=== PATIENT | female | born 1950 | race Caucasian/White ===

== ENCOUNTER 2023-01-23 18:04 | Inpatient (IN) | payer MEDICARE, SELFPAY ==
--- NOTE | ~2023-01-23 | XR_ITS ---
EXAMINATION: XR CHEST CLINICAL INFORMATION: Confusion COMPARISON: None available. TECHNIQUE: Frontal view of the chest was obtained. FINDINGS: The cardiac silhouette is upper normal in size. Hilar and mediastinal contours are unremarkable. The lungs are clear. No pleural effusion or pneumothorax. Slight elevation of the right hemidiaphragm. Degenerative changes of the spine. XR/XR chest 1V IMPRESSION: No evidence for acute disease in chest.
--- NOTE | ~2023-01-23 | FL_ITS ---
EXAMINATION: XR FLUOROSCOPY WITH IMAGES CLINICAL INFORMATION: Pacemaker COMPARISON: Previous chest x-ray from yesterday TECHNIQUE: Fluoroscopy Supervised By: Dr. Jim Morton. Fluoroscopy Time: 2.8 Minutes Cumulative Dose: 40 mGy. DAP: 9.4 Gycm2. Images: 1. FINDINGS: Single image demonstrates a left subclavian dual chamber pacemaker with leads projecting over the right atrium and ventricle. FL/FL guidance in OR IMPRESSION: Fluoroscopy guidance for pacemaker placement.
--- NOTE | ~2023-01-23 | XR_ITS ---
EXAMINATION: XR CHEST CLINICAL INFORMATION: Pacemaker. COMPARISON: Chest radiograph 01/23/2023. TECHNIQUE: Frontal view of the chest was obtained. FINDINGS: Left-sided pacer with leads projecting over the right atrium and right ventricle. No pneumothorax. Nonspecific circular radiopaque bodies projecting over the left chest, likely external to the patient. Redemonstration of surgical clips projecting over the right breast. Stable cardiomegaly. No new focal airspace opacity. No pleural effusion. No acute osseous abnormalities. XR/XR chest 1V IMPRESSION: 1. Left-sided pacer with leads projecting over the right atrium and right ventricle. 2. No pneumothorax. 3. No new focal airspace opacity. 4. Stable cardiomegaly.
--- NOTE | ~2023-01-23 | CT_ITS ---
EXAMINATION: CT ANGIOGRAM HEAD CT ANGIOGRAM NECK CLINICAL INFORMATION: Reason for Exam confusion, word finding issue, off balance COMPARISON: None. TECHNIQUE: Initial noncontrast color separation photographer imaging of the head and neck was performed. Noncontrast head CT was also performed. Test bolus sequences followed by intravenous administration 70 mL of Omnipaque 350. Helical imaging was performed in the axial plane from the aortic arch to the skull vertex. Delayed postcontrast imaging of the head was also performed. The data was processed at the mammography technologist's workstation for generation of MIP sequences. Angled MIPs and volume rendered reformatted images were also generated at an offline 3D workstation. Stenoses are assessed in accordance with NASCET criteria unless otherwise indicated. DLP: 2002 mGy-cm This CT examination was performed using dose optimization techniques as appropriate, variously including the following: *Automated exposure control. *Adjustment of mA and/or kV according to patient size (this includes techniques or standardized protocols for targeted exams where dose is matched to indication/reason for exam; i.e. extremities or head). *Use of iterative reconstruction technique. FINDINGS: CT Head: There is no evidence of acute intracranial hemorrhage or edematous territorial infarction. A few foci of hypoattenuation in the periventricular and deep white matter are consistent with mild microangiopathy. Robertson-white matter differentiation is preserved. Proportional prominence of the ventricles and sulcal spaces. No evidence for obstructive hydrocephalus. No abnormal mass effect or midline shift. No extra-axial fluid collections. Large arachnoid cyst in the anterior right middle cranial fossa measuring up to 4.7 cm with mass effect on the anterior temporal lobe and to a lesser extent the inferior frontal lobe. 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 No pathologic intra-axial enhancement or regional oligemia. No acute soft tissue or osseous abnormalities. The mastoid air cells and paranasal sinuses are clear. CT Neck: The thyroid gland and remaining cervical soft tissues are within normal limits. Reversal of usual cervical lordosis. Moderate to advanced multilevel cervical spondylosis. Spinal canal patency is not well assessed on the basis of this examination. CT Upper Chest: Upper mediastinum is within normal limits. Mosaic attenuation of the lung apices which may reflect sequela of small airways disease. Neck CTA: Aortic Arch: Normal contour and caliber. Classic 3 vessel branching pattern of the aortic arch. Great Vessel Origins: No significant stenosis of the branch origins. Right Common Carotid Artery: No focal stenosis or occlusion. Cervical Right Internal Carotid Artery: Normal opacification without focal stenosis or occlusion. Left Common Carotid Artery: No focal stenosis or occlusion. Cervical Left Internal Carotid Artery: Mild calcific atherosclerotic disease of the carotid bulb and proximal internal carotid artery without flow-limiting stenosis. Retropharyngeal medialized course of the distal common and proximal internal carotid arteries. Cervical Right Vertebral Artery: No focal stenosis or occlusion. Cervical Left Vertebral Artery: No focal stenosis or occlusion. Brain CTA: Intracranial Internal Carotid Arteries: Calcific atherosclerotic disease of the intracranial internal carotid arteries without occlusion or flow-limiting stenosis. Right Anterior Cerebral Artery: Normal A1 segment. Normal opacification of the distal RIKKI segments. Left Anterior Cerebral Artery: Normal A1 segment. Normal opacification of the distal RIKKI segments. Anterior Communicating Artery: Normal. Right Middle Cerebral Artery: Normal M1 segment of the MCA without focal stenosis or occlusion. Normal arborization of the distal segments. Left Middle Cerebral Artery: Normal M1 segment of the MCA without focal stenosis or occlusion. Normal arborization of the distal segments. Right Vertebral Artery: Normal V4 segment. Left Vertebral Artery: Normal V4 segment. Basilar Artery: Normal without focal stenosis or occlusion. Normal appearance of the proximal superior cerebellar arteries. Right Posterior Cerebral Artery: Normal P1 segment. Normal opacification of the distal ENGINEERING DOCUMENTATION SPECIALIST segments. Left Posterior Cerebral Artery: Normal P1 origin. There is a moderate focal stenosis of the mid P1 segment. Normal opacification of the distal ENGINEERING DOCUMENTATION SPECIALIST segments. Normal opacification of the superior sagittal, straight, transverse, and sigmoid sinuses. CT/CT angio head neck IMPRESSION: 1. No acute intracranial abnormality including hemorrhage, mass effect, hydrocephalus, or acute territorial edematous infarction. 2. Large arachnoid cyst in the anterior right middle cranial fossa with mass effect on the right anterior temporal lobe and to lesser extent the right inferior frontal lobe. 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 No arterial high-grade stenosis or large vessel occlusion in the head or neck. Moderate focal stenosis of the mid P1 segment of the left posterior cerebral artery with normal opacification of the distal left ENGINEERING DOCUMENTATION SPECIALIST complex.
[2023-01-23 18:13] VITALS: BP 204/64; PULSE 43; RESP 18; TEMP 36.1; O2SAT 97; BMI 22.6
--- NOTE | 2023-01-23 18:14 | ED.AMS ---
HPI - Altered Mental Status General Chief Complaint: Stroke Stated Complaint: AMS Time Seen by Provider: 01/23/23 19:43 Related Data Home Medications Medication Instructions Recorded Confirmed lorazepam 0.5 mg tablet 0.5 mg PO BID 01/23/23 01/23/23 metformin 1,000 mg tablet 1,000 mg PO BID 01/23/23 01/23/23 metoprolol succinate 50 mg 50 mg PO DAILY 01/23/23 01/23/23 tablet,extended release 24 hr simvastatin 20 mg tablet 20 mg PO BEDTIME 01/23/23 01/23/23 venlafaxine 37.5 mg 37.5 mg PO Q OTHER DAY 01/23/23 01/23/23 capsule,extended release 24 hr Allergies Allergy/AdvReac Type Severity Reaction Status Date / Time No Known Allergies Allergy Verified 01/23/23 18:20 [facility] Past Medical History Medical History Depression Diabetes mellitus Hyperlipidemia Hypertension Surgical History History of back surgery History of lumpectomy of right breast History of right breast biopsy History of tubal ligation Social History Social History Household Members: Spouse Housing: House Do you presently have visiting nurse or other home services: No Alcohol intake: never Patient Tobacco Use Status: Never used Tobacco Smoked in Last 30 Days: No e-Cigarette/Vaping Use: Never Used Patient Interested in Nicotine Replacement: No Second Hand Smoke Exposure: No Use of substances other than those prescribed or required for medical reasons: No Currently Displaying Signs/Symptoms of Drug Intoxication Withdrawal: No Any prior treatment program specific to substance use: No Have you been hit, kicked, punched, or otherwise hurt by someone within the past year? If so, by whom?: No Do you feel safe in your current relationship?: Yes Is there a partner from a previous relationship who is making you feel unsafe now?: No Are you made to feel afraid or neglected: No Advance Directives: No Advance Directives Information Provided: No Do you have thoughts of harming others: None Recently lost weight without trying: No Nutrition Risks: No Nutritional Risk Patient : No : No Poor oral hygiene: No service: No Current occupational status: employed Physical Exam ED Vital Signs: Vital Signs - 24 hr 01/23/23 21:13 01/23/23 21:22 Temperature 97.9 F Pulse Rate 42 L 42 L Respiratory Rate 16 17 Blood Pressure 196/74 H 231/78 H Pulse Oximetry 95 Oxygen Delivery Method Room Air BMI result Body Mass Index 22.6 Course Course Course Narrative: RME: 72yo F w/PMHx HTN, HLD, Pre-DM, c/o feeling off balance w/confusion and difficulty articulating/finding words since waking this morning. States she knew what she wanted to say but was not coming out. Denies CHRISTOPHER, visual changes. Denies taking AC. Admits feels mostly back at baseline now other than when shes speaking. Patient out of the window for tPA HTNsive in triage 204/64. No focal neuro deficits Labs, UA, CXR, head CT, CTA head and neck ordered Full HPI, ROS and PE to be performed by primary ED provider. Medications Administered Generic Name Dose Route Start Last Admin Trade Name Freq PRN Reason Stop Dose Admin Heparin Sodium (Porcine) 5,000 unit 01/23/23 22:00 01/24/23 04:39 Heparin Sodium,Porcine 5,000 Unit/Ml Vial SUBCUT Not Given Q8H [facility] Insulin Human Lispro 0 unit 01/24/23 16:30 01/24/23 16:32 Insulin Lispro 100 Unit/Ml 3 Ml Vial SUBCUT Not Given QIDACHS [facility] Protocol Discontinued Medications Generic Name Dose Route Start Last Admin Trade Name Freq PRN Reason Stop Dose Admin Magnesium Sulfate/Dextrose 1 gm in 100 mls @ 100 mls/hr 01/23/23 22:32 01/24/23 00:49 Magnesium Sulfate/D5w IV 01/23/23 23:31 Infused ONCE ONE Infusion Nicardipine HCl 25 mg/ Sodium 260 mls @ 0 mls/hr 01/23/23 23:45 01/24/23 17:59 Chloride IVCONT Infused .Q0M [facility] Titration Protocol Per Protocol Acetaminophen 1,000 mg in 100 mls @ 400 mls/hr 01/24/23 17:23 01/24/23 19:00 Ofirmev IV 01/24/23 17:37 400 mls/hr ONCE ONE Administration Cefazolin Sodium/Dextrose 2 gm in 50 mls @ 100 mls/hr 01/24/23 18:23 01/24/23 18:40 Ancef IV 01/24/23 18:52 100 mls/hr PREOP ONE Administration Promethazine HCl 6.25 mg/ 50.25 mls @ 201 mls/hr 01/24/23 20:35 01/24/23 20:44 Sodium Chloride IV 01/24/23 20:36 201 mls/hr ONCE ONE Administration Iohexol 100 ml 01/23/23 20:44 01/23/23 20:44 Iohexol 350 Mg/Ml 100 Ml Infus..Btl IV 01/23/23 20:45 70 ml ONCE ONE Administration Ondansetron HCl 4 mg 01/24/23 17:23 01/24/23 20:20 Ondansetron Hcl 4 Mg/2 Ml Vial IVPUSH 4 mg ONCE PRN Administration Nausea and Vomiting Medical Decision Making Lab Data 01/24/23 04:53 01/24/23 04:53 Labs: Lab Results 01/23/23 01/23/23 01/23/23 Range/Units 18:56 18:56 18:56 WBC 12.5 H (4.8-10.8) X10*3/uL RBC 4.27 (4.20-5.50) X10*6/uL Hgb 12.7 (12.0-16.0) g/dl Hct 38.4 (37.0-47.0) % MCV 89.9 (80.0-98.0) fL MCH 29.7 (27.0-33.0) pg MCHC 33.1 (31.0-35.0) g/dl RDW 13.2 (11.0-16.0) % Plt Count 457 H (160-400) X10*3/uL MPV 9.4 (9.4-12.3) fL Immature Gran % (Auto) 0.4 (0.0-0.4) % Neut % (Auto) 73.2 H (45-73) % Lymph % (Auto) 18.1 L (20-40) % [place] % (Auto) 5.9 (2-11) % Eos % (Auto) 1.7 (0-4) % Baso % (Auto) 0.7 (0-2) % Lymph # (Auto) 2.3 (1.2-4.9) X10*3/uL [place] # (Auto) 0.7 (0.1-1.2) X10*3/uL Eos # (Auto) 0.2 (0.0-0.4) X10*3/uL Baso # (Auto) 0.1 (0.0-0.2) X10*3/uL Abs Immat Gran (auto) 0.05 H (0.00-0.03) X10*3/uL Absolute Neuts (auto) 9.2 H (2.0-8.3) x10*3/uL Absolute Nucleated RBC 0.000 (0.0-0.012) X10*3/uL Nucleated RBC % (auto) 0.0 (0.0-0.2) /100WBC PT 10.6 (10.0-13.1) SEC INR 0.9 (0.9-1.1) Sodium 140 (135-145) mmol/L Potassium 5.2 H (3.3-5.1) mmol/L Chloride 109 H (96-108) mmol/L Carbon Dioxide 22 (22-29) mmol/L Anion Gap 14 (12-20) BUN 35 H (9-16) mg/dL Creatinine 1.16 (0.5-1.4) mg/dL Estim Creat Clear Calc 33.5 Estimated GFR 46 POC Glucose (60-115) mg/dL Random Glucose 89 (60-115) mg/dL Calcium 9.8 (8.4-10.2) mg/dL Magnesium 1.5 L (1.6-2.6) mg/dL Total Bilirubin 0.9 (0.0-1.0) mg/dL Direct Bilirubin 0.2 (0.0-0.5) mg/dL AST 25 (5-31) U/L ALT 20 (0-31) U/L Alkaline Phosphatase 106 (39-117) U/L Troponin I High Sens (<3.5-17.0) ng/L Total Protein 6.8 (6.5-8.0) g/dL Albumin 4.3 (3.5-5.0) g/dL 01/23/23 01/23/23 Range/Units 18:56 20:41 WBC (4.8-10.8) X10*3/uL RBC (4.20-5.50) X10*6/uL Hgb (12.0-16.0) g/dl Hct (37.0-47.0) % MCV (80.0-98.0) fL MCH (27.0-33.0) pg MCHC (31.0-35.0) g/dl RDW (11.0-16.0) % Plt Count (160-400) X10*3/uL MPV (9.4-12.3) fL Immature Gran % (Auto) (0.0-0.4) % Neut % (Auto) (45-73) % Lymph % (Auto) (20-40) % [place] % (Auto) (2-11) % Eos % (Auto) (0-4) % Baso % (Auto) (0-2) % Lymph # (Auto) (1.2-4.9) X10*3/uL [place] # (Auto) (0.1-1.2) X10*3/uL Eos # (Auto) (0.0-0.4) X10*3/uL Baso # (Auto) (0.0-0.2) X10*3/uL Abs Immat Gran (auto) (0.00-0.03) X10*3/uL Absolute Neuts (auto) (2.0-8.3) x10*3/uL Absolute Nucleated RBC (0.0-0.012) X10*3/uL Nucleated RBC % (auto) (0.0-0.2) /100WBC PT (10.0-13.1) SEC INR (0.9-1.1) Sodium (135-145) mmol/L Potassium (3.3-5.1) mmol/L Chloride (96-108) mmol/L Carbon Dioxide (22-29) mmol/L Anion Gap (12-20) BUN (9-16) mg/dL Creatinine (0.5-1.4) mg/dL Estim Creat Clear Calc Estimated GFR POC Glucose 74 (60-115) mg/dL Random Glucose (60-115) mg/dL Calcium (8.4-10.2) mg/dL Magnesium (1.6-2.6) mg/dL Total Bilirubin (0.0-1.0) mg/dL Direct Bilirubin (0.0-0.5) mg/dL AST (5-31) U/L ALT (0-31) U/L Alkaline Phosphatase (39-117) U/L Troponin I High Sens 36.8 H (<3.5-17.0) ng/L Total Protein (6.5-8.0) g/dL Albumin (3.5-5.0) g/dL Discharge Plan Discharge Clinical Impression: Transient cerebral ischemia, Third degree AV block Patient Disposition: Admitted As Inpatient Interventions: Admission Worksheet (ED) Last Done: 01/23/23 23:34 Discharge Date/Time: 01/23/23 23:54
--- NOTE | 2023-01-23 18:18 | ECG_ITS ---
Test Reason : ? STROKE Blood Pressure : / mmHG Vent. Rate : 046 BPM Atrial Rate : 046 BPM P-R Int : 000 ms QRS Dur : 144 ms QT Int : 538 ms P-R-T Axes : 069 -48 206 degrees QTc Int : 470 ms NSR with complete heart block Right bundle branch block Left anterior fascicular block Bifascicular block Minimal voltage criteria for LVH, may be normal variant ( R in aVL ) T wave abnormality, consider inferolateral ischemia Abnormal ECG No previous ECGs available Referred By: Jenni Jackson Electronically Signed By:Francis Anand
[2023-01-23 19:02] LABS: MANUAL DIFF FLAG NO
[2023-01-23 19:03] LABS: Basophils Absolute Auto 0.1 X10*3/uL (0.0-0.2); Basophils Percent Auto 0.7 % (0-2); Eosinophils Absolute Auto 0.2 X10*3/uL (0.0-0.4); Eosinophils Percent Auto 1.7 % (0-4); Hematocrit 38.4 % (37.0-47.0); Hemoglobin 12.7 g/dl (12.0-16.0); Imm Gran Abs Auto 0.05 X10*3/uL (0.00-0.03); Imm Gran Pct Auto 0.4 % (0.0-0.4); Lymphocytes Absolute Auto 2.3 X10*3/uL (1.2-4.9); Lymphocytes Percent Auto 18.1 % (20-40); Mean Corpuscular HGB Conc 33.1 g/dl (31.0-35.0); Mean Corpuscular Hemoglobin 29.7 pg (27.0-33.0); Mean Corpuscular Volume 89.9 fL (80.0-98.0); Mean Platelet Volume 9.4 fL (9.4-12.3); Monocytes Absolute Auto 0.7 X10*3/uL (0.1-1.2); Monocytes Percent Auto 5.9 % (2-11); Neutrophils Absolute Auto 9.2 x10*3/uL (2.0-8.3); Neutrophils Percent Auto 73.2 % (45-73); Platelet Count 457 X10*3/uL (160-400); Red Blood Count 4.27 X10*6/uL (4.20-5.50); Red Cell Distribution Width 13.2 % (11.0-16.0); White Blood Count 12.5 X10*3/uL (4.8-10.8)
[2023-01-23 19:09] LABS: INTERNATIONAL NORM RATIO 0.9 (0.9-1.1); Prothrombin Time 10.6 SEC (10.0-13.1)
[2023-01-23 19:18] LABS: Alanine Aminotransferase 20 U/L (0-31); Albumin Level 4.3 g/dL (3.5-5.0); Alkaline Phosphatase 106 U/L (39-117); Anion Gap 14 (12-20); Aspartate Amino Transferase 25 U/L (5-31); Bilirubin Direct 0.2 mg/dL (0.0-0.5); Bilirubin Total 0.9 mg/dL (0.0-1.0); Blood Urea Nitrogen 35 mg/dL (9-16); Calcium 9.8 mg/dL (8.4-10.2); Carbon Dioxide 22 mmol/L (22-29); Chloride 109 mmol/L (96-108); Creatinine Clr Calc Pharmacy 33.5; Estimated Glomerular Filt Rate 46; Glucose Random 89 mg/dL (60-115); Magnesium 1.5 mg/dL (1.6-2.6); Potassium 5.2 mmol/L (3.3-5.1); Sodium 140 mmol/L (135-145); Total Protein 6.8 g/dL (6.5-8.0)
[2023-01-23 19:24] LABS: Troponin-I High Sensitivity 36.8 ng/L (<3.5-17.0)
[2023-01-23 19:50] VITALS: BP 206/69; PULSE 45; RESP 17; TEMP 36.5; O2SAT 96
--- NOTE | 2023-01-23 20:16 | MHC.EDTECH ---
This Tech placed pacer pads per .RN aware
[2023-01-23 20:18] VITALS: BP 208/64; PULSE 45; RESP 20; O2SAT 100
[2023-01-23] MEDS: iohexoL 350 MG/ML 100 ML INFUS..BTL IV (20:44)
[2023-01-23 20:48] LABS: Glucose, Whole Blood 74 mg/dL (60-115)
[2023-01-23 21:13] VITALS: BP 196/74; PULSE 42; RESP 16; TEMP 36.6; O2SAT 95
[2023-01-23 21:22] VITALS: BP 231/78; PULSE 42; RESP 17
--- NOTE | 2023-01-23 21:45 | ED.NEUROSD ---
HPI - Neuro Symptoms/Deficit General Chief Complaint: Stroke Stated Complaint: AMS Time Seen by Provider: 01/23/23 19:43 History of Present Illness HPI Narrative: Patient is a 72-year-old female presents today with having difficulty saying the word. This lasted for approximately 7 hours. Subsequently symptom has resolved. Patient also feel very lightheaded very weak not quite right. There is no chest pain there is no diaphoresis. Patient came to the emergency department for further evaluation. There is no bloody stool. No history of similar symptoms. Patient not on blood thinners. Patient not on beta-blockers. She is on atorvastatin. On antidepressants. No coughing no congestion or upper respiratory symptoms. No diaphoresis . Related Data Allergies Allergy/AdvReac Type Severity Reaction Status Date / Time No Known Allergies Allergy Verified 01/23/23 18:20 Review of Systems Review of Systems: No fever no chills no chest pain or shortness of breath no diaphoresis Yes all other systems are reviewed and are negative [facility] Past Medical History Attestation statement: The following information was validated with the patient. Social History Social History Alcohol intake: never Smoked in Last 30 Days: No Use of substances other than those prescribed or required for medical reasons: No Advance Directives: No Advance Directives Information Provided: No Physical Exam Vital Signs: Vital Signs: Last Vital Signs Temp 97.9 F 01/23/23 21:13 Pulse 42 L 01/23/23 21:22 Resp 17 01/23/23 21:22 BP 231/78 H 01/23/23 21:22 Pulse Ox 95 01/23/23 21:13 O2 Del Method Room Air 01/23/23 21:13 BMI result Body Mass Index 22.6 Appearance: Alert. Oriented X3. No acute distress. Eyes: Pupils equal, round and reactive to light. ENT: Pharynx normal. Neck: Normal inspection. Neck supple. No lymph nodes noted. No crepitus CVS: Bradycardic but regular. Pulses normal. Normal S1 and S2 Respiratory: No respiratory distress. Breath sounds normal. No Wheezing. No rales Abdomen: Soft and nontender. No rigidity. No distention. good BS x4 Skin: Skin warm and dry. Normal skin color. Normal skin turgor. Extremities: No lower extremity edema. Neurovascular intact to all extremities. No Lacerations. No Rash Neuro: Oriented X 3. No motor deficit. No sensory deficit. Moving all extermities. No slurred speech Medications Administered Discontinued Medications Generic Name Dose Route Start Last Admin Trade Name [place] PRN Reason Stop Dose Admin Iohexol 100 ml 01/23/23 20:44 01/23/23 20:44 Iohexol 350 Mg/Ml 100 Ml Infus..Btl IV 01/23/23 20:45 70 ml ONCE ONE Administration Medical Decision Making Medical Decision Making MDM Narrative: Patient blood pressure elevated. Heart rate is slow in the 40s. My interpretation patient's EKG showed a third-degree heart block. Heart rate is approximately 40. Patient's stickers was placed on patient. Patient's EKG sent to Cardiology. Agree patient is in third-degree heart block. CT scan of the head was done. No intracranial bleed noted. No large vessel occlusion noted. Patient's case discussed with thoracic team. Okay with pitting a pacemaker in patient tomorrow. Case was discussed with the intensive care unit. Accepted patient to ICU. Differential Diagnosis Differential Diagnoses: The differential diagnosis associated with the presentation includes Third degree heart block, CVA, TIA, intracranial bleed Admission/Observation Consideration of admission/observation: Escalation of care including admission/observation considered Consult Healthcare Provider Management of the patient was discussed with: General Neurologist Spanish Professor, Cardiology Lab Data [facility] Lab Attestation statement: I reviewed the patient's lab results. 01/23/23 18:56 01/23/23 18:56 Labs: Lab Results 01/23/23 01/23/23 01/23/23 Range/Units 18:56 18:56 18:56 WBC 12.5 H (4.8-10.8) X10*3/uL RBC 4.27 (4.20-5.50) X10*6/uL Hgb 12.7 (12.0-16.0) g/dl Hct 38.4 (37.0-47.0) % MCV 89.9 (80.0-98.0) fL MCH 29.7 (27.0-33.0) pg MCHC 33.1 (31.0-35.0) g/dl RDW 13.2 (11.0-16.0) % Plt Count 457 H (160-400) X10*3/uL MPV 9.4 (9.4-12.3) fL Immature Gran % (Auto) 0.4 (0.0-0.4) % Neut % (Auto) 73.2 H (45-73) % Lymph % (Auto) 18.1 L (20-40) % [place] % (Auto) 5.9 (2-11) % Eos % (Auto) 1.7 (0-4) % Baso % (Auto) 0.7 (0-2) % Lymph # (Auto) 2.3 (1.2-4.9) X10*3/uL [place] # (Auto) 0.7 (0.1-1.2) X10*3/uL Eos # (Auto) 0.2 (0.0-0.4) X10*3/uL Baso # (Auto) 0.1 (0.0-0.2) X10*3/uL Abs Immat Gran (auto) 0.05 H (0.00-0.03) X10*3/uL Absolute Neuts (auto) 9.2 H (2.0-8.3) x10*3/uL Absolute Nucleated RBC 0.000 (0.0-0.012) X10*3/uL Nucleated RBC % (auto) 0.0 (0.0-0.2) /100WBC PT 10.6 (10.0-13.1) SEC INR 0.9 (0.9-1.1) Sodium 140 (135-145) mmol/L Potassium 5.2 H (3.3-5.1) mmol/L Chloride 109 H (96-108) mmol/L Carbon Dioxide 22 (22-29) mmol/L Anion Gap 14 (12-20) BUN 35 H (9-16) mg/dL Creatinine 1.16 (0.5-1.4) mg/dL Estim Creat Clear Calc 33.5 Estimated GFR 46 POC Glucose (60-115) mg/dL Random Glucose 89 (60-115) mg/dL Calcium 9.8 (8.4-10.2) mg/dL Magnesium 1.5 L (1.6-2.6) mg/dL Total Bilirubin 0.9 (0.0-1.0) mg/dL Direct Bilirubin 0.2 (0.0-0.5) mg/dL AST 25 (5-31) U/L ALT 20 (0-31) U/L Alkaline Phosphatase 106 (39-117) U/L Troponin I High Sens (<3.5-17.0) ng/L Total Protein 6.8 (6.5-8.0) g/dL Albumin 4.3 (3.5-5.0) g/dL 01/23/23 01/23/23 Range/Units 18:56 20:41 WBC (4.8-10.8) X10*3/uL RBC (4.20-5.50) X10*6/uL Hgb (12.0-16.0) g/dl Hct (37.0-47.0) % MCV (80.0-98.0) fL MCH (27.0-33.0) pg MCHC (31.0-35.0) g/dl RDW (11.0-16.0) % Plt Count (160-400) X10*3/uL MPV (9.4-12.3) fL Immature Gran % (Auto) (0.0-0.4) % Neut % (Auto) (45-73) % Lymph % (Auto) (20-40) % [place] % (Auto) (2-11) % Eos % (Auto) (0-4) % Baso % (Auto) (0-2) % Lymph # (Auto) (1.2-4.9) X10*3/uL [place] # (Auto) (0.1-1.2) X10*3/uL Eos # (Auto) (0.0-0.4) X10*3/uL Baso # (Auto) (0.0-0.2) X10*3/uL Abs Immat Gran (auto) (0.00-0.03) X10*3/uL Absolute Neuts (auto) (2.0-8.3) x10*3/uL Absolute Nucleated RBC (0.0-0.012) X10*3/uL Nucleated RBC % (auto) (0.0-0.2) /100WBC PT (10.0-13.1) SEC INR (0.9-1.1) Sodium (135-145) mmol/L Potassium (3.3-5.1) mmol/L Chloride (96-108) mmol/L Carbon Dioxide (22-29) mmol/L Anion Gap (12-20) BUN (9-16) mg/dL Creatinine (0.5-1.4) mg/dL Estim Creat Clear Calc Estimated GFR POC Glucose 74 (60-115) mg/dL Random Glucose (60-115) mg/dL Calcium (8.4-10.2) mg/dL Magnesium (1.6-2.6) mg/dL Total Bilirubin (0.0-1.0) mg/dL Direct Bilirubin (0.0-0.5) mg/dL AST (5-31) U/L ALT (0-31) U/L Alkaline Phosphatase (39-117) U/L Troponin I High Sens 36.8 H (<3.5-17.0) ng/L Total Protein (6.5-8.0) g/dL Albumin (3.5-5.0) g/dL Independent Interpretation I performed an independent interpretation of an: EKG Interpretation: Third degree heart block heart rate is 40 Radiology Impression Discussion of test interpretation with radiology: I have reviewed the radiologist's reading. Radiologist Impression: CT showed no acute evidence of bleeding. CTA showed no evidence of large vessel occlusion. Independent Historian Clinical information obtained from an independent historian. History obtained from or confirmed by: Parent External Record Review External record reviewed: Inpatient record and Office record Chronic Conditions Hypercholesterolemia NIH Stroke Scale Internal: Initial- Upon Arrival Level of Consciousness: Alert Level of Consciousness Questions: Answers both questions correctly Level of Consciousness Commands: Performs both tasks correctly Best Gaze: Normal Visual: No visual loss Facial Palsy: Normal Motor Arm (Right): No drift Motor Arm (Left): No drift Motor Leg (Right): No drift Motor Leg (Left): No drift Limb Ataxia: Absent Sensory: Normal Best Language: No aphasia Dysarthia: Normal Extinction and Inattention: No abnormality Score: 0 Critical Care Time Critical Care Time Critical Care Time: Yes Total Critical Care Time: 40 Attestation: I have personally provided 40 minutes of critical care time exclusive of time spent on separately billable procedures. Time includes review of lab data, radiology results, discussion with consultants, and monitoring for potential decompensation. Interventions were performed as documented above Discharge Plan Discharge Clinical Impression: Transient cerebral ischemia, Third degree AV block Patient Disposition: Admitted As Inpatient
--- NOTE | 2023-01-23 22:26 | P.HPCC_ITS ---
History of Present Illness Date of Service: 01/23/23 Attending physician on admission: Cruz Middleton Chief Complaint: AMS The patient is a 72-year-old female with a past medical history of diabetes mellitus, hyperlipidemia, hypertension, anxiety/ depression? who presents to the emergency room? with altered mental status.? In the emergency? department? patient reported she was having difficulty saying words that lasted for approximately 7 hours prior to arrival that resolved prior to arrival to ED.? ? On arrival to the emergency room the patient noted to be in a third-degree AV heart block rate of 40s, confirmed with EKG and cardiology.? Blood pressure elevated to? systolic of 200s. Patient? asymptomatic.? Patient on metoprolol at home, but unsure as to why. ? Thoracic team was consulted,? planning to do pacemaker tomorrow.? ?Laboratory data significant for? WBC 12.5, platelets 457,? potassium 5.2, BUN 35, creatinine 1.16, magnesium 1.5.? IMAGING:? Chest Xray-? no acute issues HEAD CT- no acute bleed, ? no high-grade stenosis or large vessel occlusion? ?Pacer pads placed on patient,? Patient will be admitted to ICU for hemodynamic monitoring Review of Systems Review of Systems: Constitutional: No weight loss, fever, chills, weakness or fatigue. Eyes: No visual loss, blurred vision, double vision or yellow sclera ENT: No hearing loss, sneezing, congestion, runny nose or sore throat. Respiratory: No dyspnea, cough No hemoptysis. Cardiovascular: no chest pain. No palpitations. no edema Gastrointestinal: No anorexia, nausea, vomiting or diarrhea. No abdominal pain or blood in stool. Genitourinary: No burning micturition. No urinary frequency or incontinence. Neurologic:+ difficulty saying words, No headache, dizziness, syncope, unilateral weakness, ataxia, numbness or tingling in the extremities. No change in bowel or bladder control. Musculoskeletal: No muscle pain, back pain, joint pain or stiffness. Hematologic/Lymphatics: No bleeding or bruising. No painful lymph nodes. Skin: No rash or itching. Endocrine: No reports of sweating. No cold or heat intolerance. No polyuria or polydipsia. [facility] Past Medical History Medical History (Updated 01/24/23 @ 10:18 by Jayne Wu PA-C) Depression Diabetes mellitus Hyperlipidemia Hypertension Surgical History Surgical History (Updated 01/24/23 @ 10:18 by Jayne Wu PA-C) History of back surgery History of lumpectomy of right breast History of right breast biopsy History of tubal ligation Social History Social History Household Members: Spouse Housing: House Do you presently have visiting nurse or other home services: No Alcohol intake: never Patient Tobacco Use Status: Never used Tobacco Smoked in Last 30 Days: No e-Cigarette/Vaping Use: Never Used Patient Interested in Nicotine Replacement: No Second Hand Smoke Exposure: No Use of substances other than those prescribed or required for medical reasons: No Currently Displaying Signs/Symptoms of Drug Intoxication Withdrawal: No Any prior treatment program specific to substance use: No Have you been hit, kicked, punched, or otherwise hurt by someone within the past year? If so, by whom?: No Do you feel safe in your current relationship?: Yes Is there a partner from a previous relationship who is making you feel unsafe now?: No Are you made to feel afraid or neglected: No Advance Directives: No Advance Directives Information Provided: No Do you have thoughts of harming others: None Recently lost weight without trying: No Nutrition Risks: No Nutritional Risk Patient : No : No Poor oral hygiene: No service: No Current occupational status: employed Meds Allergies Allergy/AdvReac Type Severity Reaction Status Date / Time No Known Allergies Allergy Verified 01/23/23 18:20 Active Medications: Current Medications Heparin Sodium (Porcine) (Heparin Sodium,Porcine 5,000 Unit/Ml Vial) 5,000 unit SUBCUT Q8H [facility] Home Medications Medication Instructions Recorded Confirmed Last Taken Type lorazepam 0.5 mg tablet 0.5 mg PO BID 01/23/23 01/23/23 01/23/23 History metformin 1,000 mg tablet 1,000 mg PO BID 01/23/23 01/23/23 01/23/23 History metoprolol succinate 50 mg 50 mg PO DAILY 01/23/23 01/23/23 01/23/23 History tablet,extended release 24 hr simvastatin 20 mg tablet 20 mg PO BEDTIME 01/23/23 01/23/23 01/22/23 History venlafaxine 37.5 mg 37.5 mg PO Q OTHER DAY 01/23/23 01/23/23 01/22/23 History capsule,extended release 24 hr Physical Exam Vital Signs: Vital Signs: Last Vital Signs Temp 97.9 F 01/23/23 21:13 Pulse 42 L 01/23/23 21:22 Resp 17 01/23/23 21:22 BP 231/78 H 01/23/23 21:22 Pulse Ox 95 01/23/23 21:13 O2 Del Method Room Air 01/23/23 21:13 BMI result Body Mass Index 22.6 ?General:? Alert oriented x3 no acute distress.? Speaking full sentences.? Speech is well articulated, thought process is coherent.? Following all commands. ?HEENT:? Head is normocephalic, atraumatic, pupils equal round reactive to light accommodation bilaterally.? Extraocular movements appear intact.? Buccal mucosa is dry, Neck is supple without lymphadenopathy. ?Cardiac:? 3rd degree Heart block on tele, Rate 40. no murmurs rubs or gallops. ?Pulmonary:? Clear to auscultation, no wheezes, rales or rhonchi. ?Abdomen:? ?Abdomen soft, non-tender, non-distended. Normal bowel sounds. No pulsatile mass. No hepatosplenomegaly. ?Musculoskeletal:? Moving all 4 extremities upon request a major joints, there is no crepitus or tenderness.? The strength is 5/5 bilaterally and throughout all 4 extremities.? Gait not assessed at this point. ?Neurologic:? No focal deficits noted.Motor strength as above.?? ?Skin:? Intact, no lesions, edema, erythema, clubbing or cyanosis.? No ulcers. Vascular:? 2+ pulses upper and lower extremities distally.? Results Labs 01/23/23 18:56 01/23/23 18:56 Labs: Laboratory Results - last 24 hr 01/23/23 01/23/23 01/23/23 18:56 18:56 18:56 MCV 89.9 MCH 29.7 MCHC 33.1 RDW 13.2 Plt Count 457 H MPV 9.4 Immature Gran % (Auto) 0.4 Neut % (Auto) 73.2 H Lymph % (Auto) 18.1 L Mckean % (Auto) 5.9 Eos % (Auto) 1.7 Baso % (Auto) 0.7 Lymph # (Auto) 2.3 Mckean # (Auto) 0.7 Eos # (Auto) 0.2 Baso # (Auto) 0.1 Abs Immat Gran (auto) 0.05 H Absolute Neuts (auto) 9.2 H Absolute Nucleated RBC 0.000 Nucleated RBC % (auto) 0.0 PT 10.6 INR 0.9 Anion Gap 14 Estim Creat Clear Calc 33.5 Estimated GFR 46 POC Glucose Random Glucose 89 Calcium 9.8 Magnesium 1.5 L Total Bilirubin 0.9 Direct Bilirubin 0.2 AST 25 ALT 20 Alkaline Phosphatase 106 Troponin I High Sens Total Protein 6.8 Albumin 4.3 01/23/23 01/23/23 18:56 20:41 MCV MCH MCHC RDW Plt Count MPV Immature Gran % (Auto) Neut % (Auto) Lymph % (Auto) Mckean % (Auto) Eos % (Auto) Baso % (Auto) Lymph # (Auto) Mckean # (Auto) Eos # (Auto) Baso # (Auto) Abs Immat Gran (auto) Absolute Neuts (auto) Absolute Nucleated RBC Nucleated RBC % (auto) PT INR Anion Gap Estim Creat Clear Calc Estimated GFR POC Glucose 74 Random Glucose Calcium Magnesium Total Bilirubin Direct Bilirubin AST ALT Alkaline Phosphatase Troponin I High Sens 36.8 H Total Protein Albumin Imaging Radiologist's Impressions: Impressions Chest X-Ray 01/23/23 18:42 IMPRESSION: No evidence for acute disease in chest. Head/Neck CTA 01/23/23 20:46 IMPRESSION: 1. No acute intracranial abnormality including hemorrhage, mass effect, hydrocephalus, or acute territorial edematous infarction. 2. Large arachnoid cyst in the anterior right middle cranial fossa with mass effect on the right anterior temporal lobe and to lesser extent the right inferior frontal lobe. 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 No arterial high-grade stenosis or large vessel occlusion in the head or neck. 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 Assessment and Plan (1) Third degree AV block: Status: Acute (2) Hypertensive emergency: Status: Acute (3) FILOMENA (acute kidney injury): Status: Acute Plan Plan:? Neuro:? ?No acute Cardiac:?Third-degree AV heart block-? patient denies any chest pain, dizziness, headach e.? Blood pressure elevated to 200s. Denies previous episodes like this one.?Pharmacu noted patient has metoprolol in med list, patient has bag of medicine but metoprolol is not in. Patient reported unsure when was the last time she took metoprolol, but hasnt taken it in a while . Cardiology and t horacic consult. ? Appreciate a Services consult.? Plan for pacemaker tomorrow morning, Cont to have pacer pads on patient? ?Hypertensive emergency:? patient blood pressure it to 200s systolic.? Will start patient on Cardene drip.? Avoid hypotension.? Pulmonary:? no acute issues ?Renal:? ??FILOMENA-? nonoliguric,? Continue monitor renal indices. Endo:? No acute issues.?? GI:? no acute issues ID:? No acute issues? Heme/Onc:? No acute issues. Psych:? No acute issues. Miscellaneous: ? no acute issues Diet NPO,? pacemaker in the morning? prophylaxis:? Heparin subcut. No GI prophylaxis at this time ?Critical care time:? X 60 minutes of critical care time ? Code? status:? FULL CODE? ?Case discussed with attending Dr Middleton Time Spent With Patient Time: Total time managing care of this patient today ____ minutes.
[2023-01-23 22:32] LABS: Appearance Urine Clear; Color Urine Yellow; Glucose Urine UA Negative (Negative); Leukocyte Esterase Urine Moderate (2+) (Negative); Nitrite Urine Negative (Negative); Specific Gravity - Urine >= 1.030 (1.005-1.025); UMIC TRIGGER UACC YES; Urine Blood Negative (Negative); Urine Ketones Negative (Negative); Urine Protein 100 (2+) mg/dL (Neg-Trace)
[2023-01-23] MEDS: Heparin Sodium,Porcine 5,000 UNIT/ML VIAL 5000 UNIT SUBCUT (22:33)
--- NOTE | 2023-01-23 22:39 | PHA.MEDREC ---
Pharmacy Consult ? Medication Reconciliation Pharmacy has completed the medication reconciliation. had bottles for all meds but metoprolol lauren
[2023-01-23 22:46] LABS: Bacteria Urine None Seen (None Seen); Hyaline Casts Urine 0-2 /LPF (0-2); RBC Urine 0-2 /HPF (0-2); UACC Culture Trigger YES; WBC Urine 21-50 /HPF (0-5)
[2023-01-23] MEDS: Magnesium Sulfate/D5W 1 GM/100 ML PIGGYBACK IV (22:50)
[2023-01-23 23:32] LABS: Troponin-I High Sensitivity 37.5 ng/L (<3.5-17.0)
[2023-01-23 23:43] VITALS: BP 208/83; PULSE 41; RESP 22; O2SAT 95
[2023-01-24] VITALS (36 sets, daily range): BP systolic 140–222; BP diastolic 39–111; PULSE 38–103; RESP 11–26; TEMP 36–36.8; O2SAT 92–98; BMI 22.7; BMI 22.9
[2023-01-24 00:33] LABS: Glucose, Whole Blood 78 mg/dL (60-115)
[2023-01-24] MEDS: niCARdipine HCL 25 MG in 0.9 % Sodium Chloride 250 ML 31.2 MG IVCONT (00:47)
[2023-01-24 05:27] LABS: MANUAL DIFF FLAG NO
[2023-01-24 05:35] LABS: Basophils Absolute Auto 0.1 X10*3/uL (0.0-0.2); Basophils Percent Auto 0.8 % (0-2); Eosinophils Absolute Auto 0.2 X10*3/uL (0.0-0.4); Eosinophils Percent Auto 2.1 % (0-4); Hematocrit 38.2 % (37.0-47.0); Hemoglobin 12.8 g/dl (12.0-16.0); Imm Gran Abs Auto 0.04 X10*3/uL (0.00-0.03); Imm Gran Pct Auto 0.4 % (0.0-0.4); Lymphocytes Absolute Auto 2.4 X10*3/uL (1.2-4.9); Mean Corpuscular HGB Conc 33.5 g/dl (31.0-35.0); Mean Corpuscular Hemoglobin 29.8 pg (27.0-33.0); Mean Platelet Volume 9.9 fL (9.4-12.3); Monocytes Absolute Auto 0.8 X10*3/uL (0.1-1.2); Monocytes Percent Auto 7.7 % (2-11); Neutrophils Absolute Auto 7.3 x10*3/uL (2.0-8.3); Platelet Count 438 X10*3/uL (160-400); Red Blood Count 4.29 X10*6/uL (4.20-5.50); Red Cell Distribution Width 13.2 % (11.0-16.0); White Blood Count 10.8 X10*3/uL (4.8-10.8)
[2023-01-24] MEDS: niCARdipine HCL 25 MG in 0.9 % Sodium Chloride 250 ML 41.6 MG IVCONT ×2 (05:43→10:59)
[2023-01-24 05:52] LABS: Alanine Aminotransferase 19 U/L (0-31); Alkaline Phosphatase 107 U/L (39-117); Anion Gap 14 (12-20); Aspartate Amino Transferase 26 U/L (5-31); Bilirubin Total 1.2 mg/dL (0.0-1.0); Blood Urea Nitrogen 30 mg/dL (9-16); Calcium 9.8 mg/dL (8.4-10.2); Carbon Dioxide 22 mmol/L (22-29); Chloride 108 mmol/L (96-108); Creatinine Clr Calc Pharmacy 38.2; Estimated Glomerular Filt Rate 53; Glucose Random 99 mg/dL (60-115); Magnesium 1.9 mg/dL (1.6-2.6); Phosphorus 4.2 mg/dL (2.7-4.5); Potassium 4.2 mmol/L (3.3-5.1); Sodium 140 mmol/L (135-145); Total Protein 6.4 g/dL (6.5-8.0)
[2023-01-24 06:02] LABS: INTERNATIONAL NORM RATIO 0.9 (0.9-1.1); Prothrombin Time 10.8 SEC (10.0-13.1)
--- NOTE | 2023-01-24 06:05 | PC.NURSE ---
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
--- NOTE | 2023-01-24 07:59 | PM.CNGS ---
History of Present Illness Consult details Consult date: 01/24/23 Narrative: This 72 y/o female presented to the ED with difficulty word finding for several hours. She was evaluated and found to be in third degree heart block. Thoracic Surgery was consulted and pacer is scheduled for this afternoon. This was discussed with patient and she is agreeable. PMH significant for HTN, HLD, T2DM, & anxiety PSH: right lumpectomy and back surgery Review of Systems Review of Systems: ROS: pt denies CVA, TIA, amaurosis fugax, hemoptysis, hematemesis, melena, DVT/PE, bleeding dyscrasias, calf pain, abdominal pain, fever or chills, headache. admitted to lumpectomy on right and difficulty finding words that has resolved PMFSH Past Medical History Medical History (Updated 01/23/23 @ 22:59 by Hunter Rooney NP) Depression Diabetes mellitus Hyperlipidemia Hypertension Cognitive capacity: intact Social History Social History Household Members: Spouse Housing: House Do you presently have visiting nurse or other home services: No Alcohol intake: never Patient Tobacco Use Status: Never used Tobacco Smoked in Last 30 Days: No e-Cigarette/Vaping Use: Never Used Patient Interested in Nicotine Replacement: No Second Hand Smoke Exposure: No Use of substances other than those prescribed or required for medical reasons: No Currently Displaying Signs/Symptoms of Drug Intoxication Withdrawal: No Any prior treatment program specific to substance use: No Have you been hit, kicked, punched, or otherwise hurt by someone within the past year? If so, by whom?: No Do you feel safe in your current relationship?: Yes Is there a partner from a previous relationship who is making you feel unsafe now?: No Are you made to feel afraid or neglected: No Advance Directives: No Advance Directives Information Provided: No Do you have thoughts of harming others: None Recently lost weight without trying: No Nutrition Risks: No Nutritional Risk Patient : No : No Poor oral hygiene: No Meds Allergies Allergy/AdvReac Type Severity Reaction Status Date / Time No Known Allergies Allergy Verified 01/23/23 18:20 Active Medications: Current Medications Heparin Sodium (Porcine) (Heparin Sodium,Porcine 5,000 Unit/Ml Vial) 5,000 unit SUBCUT Q8H [facility] Last Admin: 01/24/23 04:39 Dose: Not Given Nicardipine HCl 25 mg/ Sodium (Chloride) 260 mls @ 0 mls/hr IVCONT .Q0M [facility]; Protocol Last Admin: 01/24/23 05:43 Dose: 4 mg/hr, 41.6 mls/hr Home Medications Medication Instructions Recorded Confirmed Last Taken Type lorazepam 0.5 mg tablet 0.5 mg PO BID 01/23/23 01/23/23 01/23/23 History metformin 1,000 mg tablet 1,000 mg PO BID 01/23/23 01/23/23 01/23/23 History metoprolol succinate 50 mg 50 mg PO DAILY 01/23/23 01/23/23 01/23/23 History tablet,extended release 24 hr simvastatin 20 mg tablet 20 mg PO BEDTIME 01/23/23 01/23/23 01/22/23 History venlafaxine 37.5 mg 37.5 mg PO Q OTHER DAY 01/23/23 01/23/23 01/22/23 History capsule,extended release 24 hr Physical Exam Vital Signs: Vital Signs: Last Vital Signs Temp 97.6 F 01/24/23 07:00 Pulse 40 L 01/24/23 07:00 Resp 14 01/24/23 07:00 BP 167/69 H 01/24/23 07:00 Pulse Ox 93 01/24/23 07:00 O2 Del Method Room Air 01/24/23 07:00 BMI result Body Mass Index 22.9 Const: Other: pt is alert and orientated this am. She denies any difficulty finding her words. HEENT: Other: [place]/AT, EOMI, no sinus tenderness, tongue midline, hearing intact, no JVD and no cardotid bruits. Resp: Effort & Inspection: normal respiratory effort and able to speak in complete sentences Auscultation: clear to auscultation bilaterally Cardio: Other: regular Rate: bradycardic GI: Inspection: Yes normal to inspection Palpation (GI): Soft to palpation Auscultation: normal bowel sounds Neuro: Other: grossly intact Results Labs 01/24/23 04:53 01/24/23 04:53 Labs: Abnormal lab results 01/23/23 01/23/23 01/23/23 Range/Units 18:56 18:56 18:56 WBC 12.5 H (4.8-10.8) X10*3/uL Plt Count 457 H (160-400) X10*3/uL Neut % (Auto) 73.2 H (45-73) % Lymph % (Auto) 18.1 L (20-40) % Abs Immat Gran (auto) 0.05 H (0.00-0.03) X10*3/uL Absolute Neuts (auto) 9.2 H (2.0-8.3) x10*3/uL Potassium 5.2 H (3.3-5.1) mmol/L Chloride 109 H (96-108) mmol/L BUN 35 H (9-16) mg/dL Magnesium 1.5 L (1.6-2.6) mg/dL Total Bilirubin (0.0-1.0) mg/dL Troponin I High Sens 36.8 H (<3.5-17.0) ng/L Total Protein (6.5-8.0) g/dL Ur Specific [place] (1.005-1.025) Urine Protein (Neg-Trace) mg/dL Ur Leukocyte Esterase (Negative) Urine WBC (0-5) /HPF 01/23/23 01/23/23 01/24/23 Range/Units 22:23 22:57 04:53 WBC (4.8-10.8) X10*3/uL Plt Count 438 H (160-400) X10*3/uL Neut % (Auto) (45-73) % Lymph % (Auto) (20-40) % Abs Immat Gran (auto) 0.04 H (0.00-0.03) X10*3/uL Absolute Neuts (auto) (2.0-8.3) x10*3/uL Potassium (3.3-5.1) mmol/L Chloride (96-108) mmol/L BUN (9-16) mg/dL Magnesium (1.6-2.6) mg/dL Total Bilirubin (0.0-1.0) mg/dL Troponin I High Sens 37.5 H (<3.5-17.0) ng/L Total Protein (6.5-8.0) g/dL Ur Specific [place] >= 1.030 H (1.005-1.025) Urine Protein 100 (2+) H (Neg-Trace) mg/dL Ur Leukocyte Esterase Moderate (2+) H (Negative) Urine WBC 21-50 H (0-5) /HPF 01/24/23 Range/Units 04:53 WBC (4.8-10.8) X10*3/uL Plt Count (160-400) X10*3/uL Neut % (Auto) (45-73) % Lymph % (Auto) (20-40) % Abs Immat Gran (auto) (0.00-0.03) X10*3/uL Absolute Neuts (auto) (2.0-8.3) x10*3/uL Potassium (3.3-5.1) mmol/L Chloride (96-108) mmol/L BUN 30 H (9-16) mg/dL Magnesium (1.6-2.6) mg/dL Total Bilirubin 1.2 H (0.0-1.0) mg/dL Troponin I High Sens (<3.5-17.0) ng/L Total Protein 6.4 L (6.5-8.0) g/dL Ur Specific [place] (1.005-1.025) Urine Protein (Neg-Trace) mg/dL Ur Leukocyte Esterase (Negative) Urine WBC (0-5) /HPF Short CBC 01/23/23 01/24/23 Range/Units 18:56 04:53 WBC 12.5 H 10.8 (4.8-10.8) X10*3/uL Hgb 12.7 12.8 (12.0-16.0) g/dl Hct 38.4 38.2 (37.0-47.0) % Plt Count 457 H 438 H (160-400) X10*3/uL BMP 01/23/23 01/24/23 18:56 04:53 Sodium 140 140 Potassium 5.2 H 4.2 Chloride 109 H 108 Carbon Dioxide 22 22 BUN 35 H 30 H Creatinine 1.16 1.02 Calcium 9.8 9.8 Liver Function 01/23/23 01/24/23 Range/Units 18:56 04:53 Total Bilirubin 0.9 1.2 H (0.0-1.0) mg/dL Direct Bilirubin 0.2 (0.0-0.5) mg/dL AST 25 26 (5-31) U/L ALT 20 19 (0-31) U/L Alkaline Phosphatase 106 107 (39-117) U/L Albumin 4.3 4.0 (3.5-5.0) g/dL Urine 01/23/23 Range/Units 22:23 Urine Color Yellow Urine Appearance Clear Urine pH 5.0 (5.0-9.0) Ur Specific [place] >= 1.030 H (1.005-1.025) Urine Protein 100 (2+) H (Neg-Trace) mg/dL Urine Glucose (UA) Negative (Negative) mg/dL All other labs normal. Imaging Additional studies: CXR no acute disease Assessment and Plan (1) Third degree AV block: Status: Acute Plan 72 y/o female in Third Degree Heart Block NPO; Monitor BS since patient is diabetic T& C pending Labs -stable Hold Heparin Will notify [place] tax representative. PPM this afternoon. Case reviewed with Dr. Morton Time Spent With Patient Time: Total time managing care of this patient today ____ minutes. Procedures Date of Service Date of Service: 01/24/23
--- NOTE | 2023-01-24 10:10 | MHC.CM.PN ---
IMM DELIVERED. LIVES IN A SF WITH SPOUSE. INDEPENDENT AT BASELINE. EMPLOYED P/T. NO HCP BUT WILLING TO COMPLETE ONE. +COVID VAX X2. PCP DR. MCGRAW. DP: HOME WITH NO SERVICES ANTICIPATED, PT NOT INTERESTED IN [facility]. SPOUSE WILL TRANSPORT. CM WILL CONTINUE TO FOLLOW FOR CHANGE IN PLAN.
[2023-01-24 11:07] LABS: Glucose, Whole Blood 114 mg/dL (60-115)
--- NOTE | 2023-01-24 12:06 | P.PNCC_ITS ---
Subjective Subjective Date of Service: 01/24/23 Interval History: 72-year-old lady with underlying history of diabetes mellitus, hypertension, hyperlipidemia admitted on 01/23/2023 with symptomatic bradycardia / 3rd degree AV block. Patient is planned for pacemaker placement later today. Now being monitored in the intensive care and requires Cardene drip for hypertensive urgency. Critical Care Time (minutes): 0 Physical Exam Vital Signs: Vital Signs: Last Vital Signs Temp 97.6 F 01/24/23 07:00 Pulse 40 L 01/24/23 11:00 Resp 18 01/24/23 11:00 BP 147/48 H 01/24/23 11:00 Pulse Ox 94 01/24/23 11:00 O2 Del Method Room Air 01/24/23 11:00 BMI result Body Mass Index 22.9 Const: General: no acute distress, alert and awake Eyes: Sclerae: sclerae normal EOM: EOMs intact bilaterally Neck: Neck: Yes no lymphadenopathy, Yes trachea midline and Yes supple Resp: Effort & Inspection: normal respiratory effort and no respiratory distress Auscultation: clear to auscultation bilaterally Cardio: Rate: bradycardic Rhythm: regular rhythm Heart sounds: no gallops, no murmurs and no rubs GI: Palpation (GI): Soft to palpation and Other GI palpation findings present ( Nontender) Auscultation: normal bowel sounds Extrem: General: Yes no pedal edema, No clubbing and No cyanosis Objective Data Labs 01/24/23 04:53 01/24/23 04:53 Labs: Laboratory Results - last 24 hr 01/23/23 01/23/23 01/23/23 18:56 18:56 18:56 WBC 12.5 H RBC 4.27 Hgb 12.7 Hct 38.4 MCV 89.9 MCH 29.7 MCHC 33.1 RDW 13.2 Plt Count 457 H MPV 9.4 Immature Gran % (Auto) 0.4 Neut % (Auto) 73.2 H Lymph % (Auto) 18.1 L [place] % (Auto) 5.9 Eos % (Auto) 1.7 Baso % (Auto) 0.7 Lymph # (Auto) 2.3 [place] # (Auto) 0.7 Eos # (Auto) 0.2 Baso # (Auto) 0.1 Abs Immat Gran (auto) 0.05 H Absolute Neuts (auto) 9.2 H Absolute Nucleated RBC 0.000 Nucleated RBC % (auto) 0.0 PT 10.6 INR 0.9 Sodium 140 Potassium 5.2 H Chloride 109 H Carbon Dioxide 22 Anion Gap 14 BUN 35 H Creatinine 1.16 Estim Creat Clear Calc 33.5 Estimated GFR 46 POC Glucose Random Glucose 89 Calcium 9.8 Phosphorus Magnesium 1.5 L Total Bilirubin 0.9 Direct Bilirubin 0.2 AST 25 ALT 20 Alkaline Phosphatase 106 Troponin I High Sens Total Protein 6.8 Albumin 4.3 Urine Color Urine Appearance Urine pH Ur Specific [place] Urine Protein Urine Glucose (UA) Urine Ketones Urine Blood Urine Nitrite Ur Leukocyte Esterase Urine RBC Urine WBC Ur Squamous Epith Cells Urine Bacteria Hyaline Casts Blood Type Antibody Screen 01/23/23 01/23/23 01/23/23 18:56 20:41 22:23 WBC RBC Hgb Hct MCV MCH MCHC RDW Plt Count MPV Immature Gran % (Auto) Neut % (Auto) Lymph % (Auto) [place] % (Auto) Eos % (Auto) Baso % (Auto) Lymph # (Auto) [place] # (Auto) Eos # (Auto) Baso # (Auto) Abs Immat Gran (auto) Absolute Neuts (auto) Absolute Nucleated RBC Nucleated RBC % (auto) PT INR Sodium Potassium Chloride Carbon Dioxide Anion Gap BUN Creatinine Estim Creat Clear Calc Estimated GFR POC Glucose 74 Random Glucose Calcium Phosphorus Magnesium Total Bilirubin Direct Bilirubin AST ALT Alkaline Phosphatase Troponin I High Sens 36.8 H Total Protein Albumin Urine Color Yellow Urine Appearance Clear Urine pH 5.0 Ur Specific [place] >= 1.030 H Urine Protein 100 (2+) H Urine Glucose (UA) Negative Urine Ketones Negative Urine Blood Negative Urine Nitrite Negative Ur Leukocyte Esterase Moderate (2+) H Urine RBC 0-2 Urine WBC 21-50 H Ur Squamous Epith Cells 3-5 Urine Bacteria None Seen Hyaline Casts 0-2 Blood Type Antibody Screen 01/23/23 01/24/23 01/24/23 22:57 00:29 04:53 WBC 10.8 RBC 4.29 Hgb 12.8 Hct 38.2 MCV 89.0 MCH 29.8 MCHC 33.5 RDW 13.2 Plt Count 438 H MPV 9.9 Immature Gran % (Auto) 0.4 Neut % (Auto) 67.0 Lymph % (Auto) 22.0 [place] % (Auto) 7.7 Eos % (Auto) 2.1 Baso % (Auto) 0.8 Lymph # (Auto) 2.4 [place] # (Auto) 0.8 Eos # (Auto) 0.2 Baso # (Auto) 0.1 Abs Immat Gran (auto) 0.04 H Absolute Neuts (auto) 7.3 Absolute Nucleated RBC 0.000 Nucleated RBC % (auto) 0.0 PT INR Sodium Potassium Chloride Carbon Dioxide Anion Gap BUN Creatinine Estim Creat Clear Calc Estimated GFR POC Glucose 78 Random Glucose Calcium Phosphorus Magnesium Total Bilirubin Direct Bilirubin AST ALT Alkaline Phosphatase Troponin I High Sens 37.5 H Total Protein Albumin Urine Color Urine Appearance Urine pH Ur Specific [place] Urine Protein Urine Glucose (UA) Urine Ketones Urine Blood Urine Nitrite Ur Leukocyte Esterase Urine RBC Urine WBC Ur Squamous Epith Cells Urine Bacteria Hyaline Casts Blood Type Antibody Screen 01/24/23 01/24/23 01/24/23 04:53 04:53 05:19 WBC RBC Hgb Hct MCV MCH MCHC RDW Plt Count MPV Immature Gran % (Auto) Neut % (Auto) Lymph % (Auto) [place] % (Auto) Eos % (Auto) Baso % (Auto) Lymph # (Auto) [place] # (Auto) Eos # (Auto) Baso # (Auto) Abs Immat Gran (auto) Absolute Neuts (auto) Absolute Nucleated RBC Nucleated RBC % (auto) PT 10.8 INR 0.9 Sodium 140 Potassium 4.2 Chloride 108 Carbon Dioxide 22 Anion Gap 14 BUN 30 H Creatinine 1.02 Estim Creat Clear Calc 38.2 Estimated GFR 53 POC Glucose Random Glucose 99 Calcium 9.8 Phosphorus 4.2 Magnesium 1.9 Total Bilirubin 1.2 H Direct Bilirubin AST 26 ALT 19 Alkaline Phosphatase 107 Troponin I High Sens Total Protein 6.4 L Albumin 4.0 Urine Color Urine Appearance Urine pH Ur Specific [place] Urine Protein Urine Glucose (UA) Urine Ketones Urine Blood Urine Nitrite Ur Leukocyte Esterase Urine RBC Urine WBC Ur Squamous Epith Cells Urine Bacteria Hyaline Casts Blood Type O Positive Antibody Screen NEGATIVE 01/24/23 11:03 WBC RBC Hgb Hct MCV MCH MCHC RDW Plt Count MPV Immature Gran % (Auto) Neut % (Auto) Lymph % (Auto) [place] % (Auto) Eos % (Auto) Baso % (Auto) Lymph # (Auto) [place] # (Auto) Eos # (Auto) Baso # (Auto) Abs Immat Gran (auto) Absolute Neuts (auto) Absolute Nucleated RBC Nucleated RBC % (auto) PT INR Sodium Potassium Chloride Carbon Dioxide Anion Gap BUN Creatinine Estim Creat Clear Calc Estimated GFR POC Glucose 114 Random Glucose Calcium Phosphorus Magnesium Total Bilirubin Direct Bilirubin AST ALT Alkaline Phosphatase Troponin I High Sens Total Protein Albumin Urine Color Urine Appearance Urine pH Ur Specific [place] Urine Protein Urine Glucose (UA) Urine Ketones Urine Blood Urine Nitrite Ur Leukocyte Esterase Urine RBC Urine WBC Ur Squamous Epith Cells Urine Bacteria Hyaline Casts Blood Type Antibody Screen Microbiology Microbiology Results: Microbiology 01/23/23 22:54 Urine clean catch - Urine [place] Urine Culture - Preliminary Culture too young to evaluate. Progress Note: A&P Assessment and plan (1) Hypertensive emergency: Status: Acute (2) Third degree AV block: Status: Acute Plan Assessment: 72-year-old lady admitted with symptomatic bradycardia now waiting pacemaker placement. Plan: Neuro: No acute issues. Cardiac: Symptomatic bradycardia with third-degree AV block. Awaiting pacemaker placement. Pulmonary: No acute issues. Renal: No acute issues. Endo: No acute issues. Underlying diabetes mellitus. GI: No acute issues. ID: No acute issues Heme/Onc: No acute issues. Psych: No acute issues. Miscellaneous: No acute issues. Prophylaxis: Heparin Diet: NPO for procedure Quality Stroke Does the patient have a stroke diagnosis?: No VTE Prior VTE?: No VTE Risk Level:: Medical - moderate - high VTE Device Contraindication: N/A - Device Ordered VTE Drug Contraindication: N/A - Med Ordered
[2023-01-24 16:25] LABS: Glucose, Whole Blood 81 mg/dL (60-115)
--- NOTE | 2023-01-24 16:41 | PM.CNCAR ---
History of Present Illness History of Present Illness Date of Service: 01/24/23 Requesting physician: Cruz Middleton Chief complaint: 3rd degree AV heart block Narrative: 72-year-old female who presented yesterday with word-finding difficulty and elevated blood pressures and was noticed to be in complete heart block. She was admitted to the intensive care unit for close monitoring and permanent pacemaker placement today. She was started on Cardene drip overnight. At the time of interview she said she is feeling much better. Her word-finding difficulty has improved as her blood pressure got better. She appears to be due to 1 heart block on telemetry. No dizziness but she has been feeling tired for few weeks. No history of syncope. No chest discomfort. She is currently NPO for potential dual-chamber pacemaker placement today. FORMERLY [facility], [facility] Past Medical History Medical History (Updated 01/24/23 @ 10:18 by Jayne Wu PA-C) Depression Diabetes mellitus Hyperlipidemia Hypertension Surgical History Surgical History (Updated 01/24/23 @ 10:18 by Jayne Wu PA-C) History of back surgery History of lumpectomy of right breast History of right breast biopsy History of tubal ligation Social History Social History Household Members: Spouse Housing: House Do you presently have visiting nurse or other home services: No Alcohol intake: never Patient Tobacco Use Status: Never used Tobacco Smoked in Last 30 Days: No e-Cigarette/Vaping Use: Never Used Patient Interested in Nicotine Replacement: No Second Hand Smoke Exposure: No Use of substances other than those prescribed or required for medical reasons: No Currently Displaying Signs/Symptoms of Drug Intoxication Withdrawal: No Any prior treatment program specific to substance use: No Have you been hit, kicked, punched, or otherwise hurt by someone within the past year? If so, by whom?: No Do you feel safe in your current relationship?: Yes Is there a partner from a previous relationship who is making you feel unsafe now?: No Are you made to feel afraid or neglected: No Advance Directives: No Advance Directives Information Provided: No Do you have thoughts of harming others: None Recently lost weight without trying: No Nutrition Risks: No Nutritional Risk Patient : No : No Poor oral hygiene: No service: No Current occupational status: employed Meds Allergies Allergy/AdvReac Type Severity Reaction Status Date / Time No Known Allergies Allergy Verified 01/23/23 18:20 Active Medications: Current Medications Heparin Sodium (Porcine) (Heparin Sodium,Porcine 5,000 Unit/Ml Vial) 5,000 unit SUBCUT Q8H [facility] Last Admin: 01/24/23 04:39 Dose: Not Given Nicardipine HCl 25 mg/ Sodium (Chloride) 260 mls @ 0 mls/hr IVCONT .Q0M [facility]; Protocol Last Titration: 01/24/23 13:07 Dose: 0 mg/hr, 0 mls/hr Insulin Human Lispro (Insulin Lispro 100 Unit/Ml 3 Ml Vial) 0 unit SUBCUT QIDACHS [facility]; Protocol Last Admin: 01/24/23 16:32 Dose: Not Given Home Medications Medication Instructions Recorded Confirmed Last Taken Type lorazepam 0.5 mg tablet 0.5 mg PO BID 01/23/23 01/23/23 01/23/23 History metformin 1,000 mg tablet 1,000 mg PO BID 01/23/23 01/23/23 01/23/23 History metoprolol succinate 50 mg 50 mg PO DAILY 01/23/23 01/23/23 01/23/23 History tablet,extended release 24 hr simvastatin 20 mg tablet 20 mg PO BEDTIME 01/23/23 01/23/23 01/22/23 History venlafaxine 37.5 mg 37.5 mg PO Q OTHER DAY 01/23/23 01/23/23 01/22/23 History capsule,extended release 24 hr Physical Exam Vital Signs: Vital Signs: Last Vital Signs Temp 97.7 F 01/24/23 13:00 Pulse 45 L 01/24/23 16:01 Resp 11 L 01/24/23 16:01 BP 169/67 H 01/24/23 16:01 Pulse Ox 95 01/24/23 16:01 O2 Del Method Room Air 01/24/23 16:01 BMI result Body Mass Index 22.9 GENERAL APPEARANCE: in no acute distress, pleasant. NECK: no carotid bruit, no jugular venous distention. SKIN: no suspicious lesions, warm and dry. HEART: no murmurs, regular rate and rhythm. Bradycardic. LUNGS: clear to auscultation bilaterally. ABDOMEN: soft, nontender. EXTREMITIES: no edema. PERIPHERAL PULSES: equal. NEUROLOGIC: No gross deficits, AAO X 3 Objective Labs and Meds 01/24/23 04:53 01/24/23 04:53 Lab results: Laboratory Results - last 24 hr 01/23/23 01/23/23 01/23/23 18:56 18:56 18:56 WBC 12.5 H RBC 4.27 Hgb 12.7 Hct 38.4 MCV 89.9 MCH 29.7 MCHC 33.1 RDW 13.2 Plt Count 457 H MPV 9.4 Immature Gran % (Auto) 0.4 Neut % (Auto) 73.2 H Lymph % (Auto) 18.1 L [place] % (Auto) 5.9 Eos % (Auto) 1.7 Baso % (Auto) 0.7 Lymph # (Auto) 2.3 [place] # (Auto) 0.7 Eos # (Auto) 0.2 Baso # (Auto) 0.1 Abs Immat Gran (auto) 0.05 H Absolute Neuts (auto) 9.2 H Absolute Nucleated RBC 0.000 Nucleated RBC % (auto) 0.0 PT 10.6 INR 0.9 Sodium 140 Potassium 5.2 H Chloride 109 H Carbon Dioxide 22 Anion Gap 14 BUN 35 H Creatinine 1.16 Estim Creat Clear Calc 33.5 Estimated GFR 46 POC Glucose Random Glucose 89 Calcium 9.8 Phosphorus Magnesium 1.5 L Total Bilirubin 0.9 Direct Bilirubin 0.2 AST 25 ALT 20 Alkaline Phosphatase 106 Troponin I High Sens Total Protein 6.8 Albumin 4.3 Urine Color Urine Appearance Urine pH Ur Specific [place] Urine Protein Urine Glucose (UA) Urine Ketones Urine Blood Urine Nitrite Ur Leukocyte Esterase Urine RBC Urine WBC Ur Squamous Epith Cells Urine Bacteria Hyaline Casts Blood Type Antibody Screen 01/23/23 01/23/23 01/23/23 18:56 20:41 22:23 WBC RBC Hgb Hct MCV MCH MCHC RDW Plt Count MPV Immature Gran % (Auto) Neut % (Auto) Lymph % (Auto) [place] % (Auto) Eos % (Auto) Baso % (Auto) Lymph # (Auto) [place] # (Auto) Eos # (Auto) Baso # (Auto) Abs Immat Gran (auto) Absolute Neuts (auto) Absolute Nucleated RBC Nucleated RBC % (auto) PT INR Sodium Potassium Chloride Carbon Dioxide Anion Gap BUN Creatinine Estim Creat Clear Calc Estimated GFR POC Glucose 74 Random Glucose Calcium Phosphorus Magnesium Total Bilirubin Direct Bilirubin AST ALT Alkaline Phosphatase Troponin I High Sens 36.8 H Total Protein Albumin Urine Color Yellow Urine Appearance Clear Urine pH 5.0 Ur Specific [place] >= 1.030 H Urine Protein 100 (2+) H Urine Glucose (UA) Negative Urine Ketones Negative Urine Blood Negative Urine Nitrite Negative Ur Leukocyte Esterase Moderate (2+) H Urine RBC 0-2 Urine WBC 21-50 H Ur Squamous Epith Cells 3-5 Urine Bacteria None Seen Hyaline Casts 0-2 Blood Type Antibody Screen 01/23/23 01/24/23 01/24/23 22:57 00:29 04:53 WBC 10.8 RBC 4.29 Hgb 12.8 Hct 38.2 MCV 89.0 MCH 29.8 MCHC 33.5 RDW 13.2 Plt Count 438 H MPV 9.9 Immature Gran % (Auto) 0.4 Neut % (Auto) 67.0 Lymph % (Auto) 22.0 Emanuel % (Auto) 7.7 Eos % (Auto) 2.1 Baso % (Auto) 0.8 Lymph # (Auto) 2.4 [place]manuel # (Auto) 0.8 Eos # (Auto) 0.2 Baso # (Auto) 0.1 Abs Immat Gran (auto) 0.04 H Absolute Neuts (auto) 7.3 Absolute Nucleated RBC 0.000 Nucleated RBC % (auto) 0.0 PT INR Sodium Potassium Chloride Carbon Dioxide Anion Gap BUN Creatinine Estim Creat Clear Calc Estimated GFR POC Glucose 78 Random Glucose Calcium Phosphorus Magnesium Total Bilirubin Direct Bilirubin AST ALT Alkaline Phosphatase Troponin I High Sens 37.5 H Total Protein Albumin Urine Color Urine Appearance Urine pH Ur Specific [place] Urine Protein Urine Glucose (UA) Urine Ketones Urine Blood Urine Nitrite Ur Leukocyte Esterase Urine RBC Urine WBC Ur Squamous Epith Cells Urine Bacteria Hyaline Casts Blood Type Antibody Screen 01/24/23 01/24/23 01/24/23 04:53 04:53 05:19 WBC RBC Hgb Hct MCV MCH MCHC RDW Plt Count MPV Immature Gran % (Auto) Neut % (Auto) Lymph % (Auto) [place]manuel % (Auto) Eos % (Auto) Baso % (Auto) Lymph # (Auto) [place] # (Auto) Eos # (Auto) Baso # (Auto) Abs Immat Gran (auto) Absolute Neuts (auto) Absolute Nucleated RBC Nucleated RBC % (auto) PT 10.8 INR 0.9 Sodium 140 Potassium 4.2 Chloride 108 Carbon Dioxide 22 Anion Gap 14 BUN 30 H Creatinine 1.02 Estim Creat Clear Calc 38.2 Estimated GFR 53 POC Glucose Random Glucose 99 Calcium 9.8 Phosphorus 4.2 Magnesium 1.9 Total Bilirubin 1.2 H Direct Bilirubin AST 26 ALT 19 Alkaline Phosphatase 107 Troponin I High Sens Total Protein 6.4 L Albumin 4.0 Urine Color Urine Appearance Urine pH Ur Specific [place] Urine Protein Urine Glucose (UA) Urine Ketones Urine Blood Urine Nitrite Ur Leukocyte Esterase Urine RBC Urine WBC Ur Squamous Epith Cells Urine Bacteria Hyaline Casts Blood Type O Positive Antibody Screen NEGATIVE 01/24/23 01/24/23 11:03 16:21 WBC RBC Hgb Hct MCV MCH MCHC RDW Plt Count MPV Immature Gran % (Auto) Neut % (Auto) Lymph % (Auto) [place]manuel % (Auto) Eos % (Auto) Baso % (Auto) Lymph # (Auto) [place] # (Auto) Eos # (Auto) Baso # (Auto) Abs Immat Gran (auto) Absolute Neuts (auto) Absolute Nucleated RBC Nucleated RBC % (auto) PT INR Sodium Potassium Chloride Carbon Dioxide Anion Gap BUN Creatinine Estim Creat Clear Calc Estimated GFR POC Glucose 114 81 Random Glucose Calcium Phosphorus Magnesium Total Bilirubin Direct Bilirubin AST ALT Alkaline Phosphatase Troponin I High Sens Total Protein Albumin Urine Color Urine Appearance Urine pH Ur Specific [place] Urine Protein Urine Glucose (UA) Urine Ketones Urine Blood Urine Nitrite Ur Leukocyte Esterase Urine RBC Urine WBC Ur Squamous Epith Cells Urine Bacteria Hyaline Casts Blood Type Antibody Screen Imaging Radiologist's impression: Impressions Chest X-Ray 01/23/23 18:42 IMPRESSION: No evidence for acute disease in chest. Head/Neck CTA 01/23/23 20:46 IMPRESSION: 1. No acute intracranial abnormality including hemorrhage, mass effect, hydrocephalus, or acute territorial edematous infarction. 2. Large arachnoid cyst in the anterior right middle cranial fossa with mass effect on the right anterior temporal lobe and to lesser extent the right inferior frontal lobe. 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 No arterial high-grade stenosis or large vessel occlusion in the head or neck. Moderate focal stenosis of the mid P1 segment of the left posterior cerebral artery with normal opacification of the distal left [employer] complex. Assessment and Plan (1) Hypertensive emergency: Status: Acute (2) Transient cerebral ischemia: Status: Acute (3) Third degree AV block: Status: Acute Plan Pleasant 72-year-old female who is presenting with word-finding difficulties and elevated blood pressure as well as complete heart block. Overnight she has changed to 2-1 block. In any case she needs permanent pacemaker placement. Blood pressure has responded well to Cardene. Quite frequently we see patients who present with complete heart block and have hypertension and after pacemaker placement and improvement in heart rate the blood pressure improves. Will monitor closely and adjust blood pressure medications. I think post pacemaker placement she can go back to her home medications. I think her symptoms were due to a combination of complete heart block and significantly elevated blood pressure. No obvious stroke-like symptoms have been noticed. I think she will benefit from baby aspirin. We will follow along with you. Thank you for allowing me to participate in the care of your patient. Please feel free to contact me if you have any questions. Time Spent With Patient Time: Total time managing care of this patient today ____ minutes. Procedures Date of Service Date of Service: 01/24/23
--- NOTE | 2023-01-24 17:21 | HO.ANESPROP2 ---
HPI - Anesthesia Eval Consult details Narrative: 72 F w/ third degree block p/f PPM PMFSH Active Problems Active Problems: All Active Problems (Updated 01/24/23 @ 10:18 by Jayne Wu PA-C) FILOMENA (acute kidney injury) (Acute ~12/2022) Hypertensive emergency (Acute ~12/2022) Transient cerebral ischemia (Acute ~12/2022) Third degree AV block (Acute ~12/2022) Past Medical History Medical History Depression Diabetes mellitus Hyperlipidemia Hypertension Family History Family history of problems with anesthesia: No Surgical History Surgical History History of back surgery History of lumpectomy of right breast History of right breast biopsy History of tubal ligation History of Problems with Anesthesia: Yes (PONV) Social History Social History Household Members: Spouse Housing: House Do you presently have visiting nurse or other home services: No Alcohol intake: never Patient Tobacco Use Status: Never used Tobacco Smoked in Last 30 Days: No e-Cigarette/Vaping Use: Never Used Patient Interested in Nicotine Replacement: No Second Hand Smoke Exposure: No Use of substances other than those prescribed or required for medical reasons: No Currently Displaying Signs/Symptoms of Drug Intoxication Withdrawal: No Any prior treatment program specific to substance use: No Have you been hit, kicked, punched, or otherwise hurt by someone within the past year? If so, by whom?: No Do you feel safe in your current relationship?: Yes Is there a partner from a previous relationship who is making you feel unsafe now?: No Are you made to feel afraid or neglected: No Advance Directives: No Advance Directives Information Provided: No Do you have thoughts of harming others: None Recently lost weight without trying: No Nutrition Risks: No Nutritional Risk Patient : No : No Poor oral hygiene: No service: No Current occupational status: employed Meds Allergies Allergy/AdvReac Type Severity Reaction Status Date / Time No Known Allergies Allergy Verified 01/23/23 18:20 Active Medications: Current Medications Heparin Sodium (Porcine) (Heparin Sodium,Porcine 5,000 Unit/Ml Vial) 5,000 unit SUBCUT Q8H [facility] Last Admin: 01/24/23 04:39 Dose: Not Given Nicardipine HCl 25 mg/ Sodium (Chloride) 260 mls @ 0 mls/hr IVCONT .Q0M [facility]; Protocol Last Titration: 01/24/23 13:07 Dose: 0 mg/hr, 0 mls/hr Insulin Human Lispro (Insulin Lispro 100 Unit/Ml 3 Ml Vial) 0 unit SUBCUT QIDACHS [facility]; Protocol Last Admin: 01/24/23 16:32 Dose: Not Given Home Medications Medication Instructions Recorded Confirmed Last Taken Type lorazepam 0.5 mg tablet 0.5 mg PO BID 01/23/23 01/23/23 01/23/23 History metformin 1,000 mg tablet 1,000 mg PO BID 01/23/23 01/23/23 01/23/23 History metoprolol succinate 50 mg 50 mg PO DAILY 01/23/23 01/23/23 01/23/23 History tablet,extended release 24 hr simvastatin 20 mg tablet 20 mg PO BEDTIME 01/23/23 01/23/23 01/22/23 History venlafaxine 37.5 mg 37.5 mg PO Q OTHER DAY 01/23/23 01/23/23 01/22/23 History capsule,extended release 24 hr Exam Exam Date and Time: January 24, [id number] Height,Weight and Vital Signs: Height 5 ft 1 in Weight 121 lb 7.595 oz Last Vital Signs Temp 97.7 F 01/24/23 13:00 Pulse 45 L 01/24/23 16:01 Resp 11 L 01/24/23 16:01 BP 169/67 H 01/24/23 16:01 Pulse Ox 95 01/24/23 16:01 O2 Del Method Room Air 01/24/23 16:01 Pertinent Lab Results Pertinent Lab Results: Laboratory Tests 01/23/23 01/23/23 01/23/23 18:56 18:56 18:56 WBC 12.5 H RBC 4.27 Hgb 12.7 Hct 38.4 MCV 89.9 MCH 29.7 MCHC 33.1 RDW 13.2 Plt Count 457 H MPV 9.4 Immature Gran % (Auto) 0.4 Neut % (Auto) 73.2 H Lymph % (Auto) 18.1 L [place] % (Auto) 5.9 Eos % (Auto) 1.7 Baso % (Auto) 0.7 Lymph # (Auto) 2.3 [place] # (Auto) 0.7 Eos # (Auto) 0.2 Baso # (Auto) 0.1 Abs Immat Gran (auto) 0.05 H Absolute Neuts (auto) 9.2 H Absolute Nucleated RBC 0.000 Nucleated RBC % (auto) 0.0 PT 10.6 INR 0.9 Sodium 140 Potassium 5.2 H Chloride 109 H Carbon Dioxide 22 Anion Gap 14 BUN 35 H Creatinine 1.16 Estim Creat Clear Calc 33.5 Estimated GFR 46 POC Glucose Random Glucose 89 Calcium 9.8 Phosphorus Magnesium 1.5 L Total Bilirubin 0.9 Direct Bilirubin 0.2 AST 25 ALT 20 Alkaline Phosphatase 106 Troponin I High Sens Total Protein 6.8 Albumin 4.3 Urine Color Urine Appearance Urine pH Ur Specific [place] Urine Protein Urine Glucose (UA) Urine Ketones Urine Blood Urine Nitrite Ur Leukocyte Esterase Urine RBC Urine WBC Ur Squamous Epith Cells Urine Bacteria Hyaline Casts Blood Type Antibody Screen 01/23/23 01/23/23 01/23/23 18:56 20:41 22:23 WBC RBC Hgb Hct MCV MCH MCHC RDW Plt Count MPV Immature Gran % (Auto) Neut % (Auto) Lymph % (Auto) [place] % (Auto) Eos % (Auto) Baso % (Auto) Lymph # (Auto) [place] # (Auto) Eos # (Auto) Baso # (Auto) Abs Immat Gran (auto) Absolute Neuts (auto) Absolute Nucleated RBC Nucleated RBC % (auto) PT INR Sodium Potassium Chloride Carbon Dioxide Anion Gap BUN Creatinine Estim Creat Clear Calc Estimated GFR POC Glucose 74 Random Glucose Calcium Phosphorus Magnesium Total Bilirubin Direct Bilirubin AST ALT Alkaline Phosphatase Troponin I High Sens 36.8 H Total Protein Albumin Urine Color Yellow Urine Appearance Clear Urine pH 5.0 Ur Specific [place] >= 1.030 H Urine Protein 100 (2+) H Urine Glucose (UA) Negative Urine Ketones Negative Urine Blood Negative Urine Nitrite Negative Ur Leukocyte Esterase Moderate (2+) H Urine RBC 0-2 Urine WBC 21-50 H Ur Squamous Epith Cells 3-5 Urine Bacteria None Seen Hyaline Casts 0-2 Blood Type Antibody Screen 01/23/23 01/24/23 01/24/23 22:57 00:29 04:53 WBC 10.8 RBC 4.29 Hgb 12.8 Hct 38.2 MCV 89.0 MCH 29.8 MCHC 33.5 RDW 13.2 Plt Count 438 H MPV 9.9 Immature Gran % (Auto) 0.4 Neut % (Auto) 67.0 Lymph % (Auto) 22.0 [place] % (Auto) 7.7 Eos % (Auto) 2.1 Baso % (Auto) 0.8 Lymph # (Auto) 2.4 [place] # (Auto) 0.8 Eos # (Auto) 0.2 Baso # (Auto) 0.1 Abs Immat Gran (auto) 0.04 H Absolute Neuts (auto) 7.3 Absolute Nucleated RBC 0.000 Nucleated RBC % (auto) 0.0 PT INR Sodium Potassium Chloride Carbon Dioxide Anion Gap BUN Creatinine Estim Creat Clear Calc Estimated GFR POC Glucose 78 Random Glucose Calcium Phosphorus Magnesium Total Bilirubin Direct Bilirubin AST ALT Alkaline Phosphatase Troponin I High Sens 37.5 H Total Protein Albumin Urine Color Urine Appearance Urine pH Ur Specific [place] Urine Protein Urine Glucose (UA) Urine Ketones Urine Blood Urine Nitrite Ur Leukocyte Esterase Urine RBC Urine WBC Ur Squamous Epith Cells Urine Bacteria Hyaline Casts Blood Type Antibody Screen 01/24/23 01/24/23 01/24/23 04:53 04:53 05:19 WBC RBC Hgb Hct MCV MCH MCHC RDW Plt Count MPV Immature Gran % (Auto) Neut % (Auto) Lymph % (Auto) [place] % (Auto) Eos % (Auto) Baso % (Auto) Lymph # (Auto) [place] # (Auto) Eos # (Auto) Baso # (Auto) Abs Immat Gran (auto) Absolute Neuts (auto) Absolute Nucleated RBC Nucleated RBC % (auto) PT 10.8 INR 0.9 Sodium 140 Potassium 4.2 Chloride 108 Carbon Dioxide 22 Anion Gap 14 BUN 30 H Creatinine 1.02 Estim Creat Clear Calc 38.2 Estimated GFR 53 POC Glucose Random Glucose 99 Calcium 9.8 Phosphorus 4.2 Magnesium 1.9 Total Bilirubin 1.2 H Direct Bilirubin AST 26 ALT 19 Alkaline Phosphatase 107 Troponin I High Sens Total Protein 6.4 L Albumin 4.0 Urine Color Urine Appearance Urine pH Ur Specific [place] Urine Protein Urine Glucose (UA) Urine Ketones Urine Blood Urine Nitrite Ur Leukocyte Esterase Urine RBC Urine WBC Ur Squamous Epith Cells Urine Bacteria Hyaline Casts Blood Type O Positive Antibody Screen NEGATIVE 04/25/23 04/25/23 11:03 16:21 WBC RBC Hgb Hct MCV MCH MCHC RDW Plt Count MPV Immature Gran % (Auto) Neut % (Auto) Lymph % (Auto) [place] % (Auto) Eos % (Auto) Baso % (Auto) Lymph # (Auto) [place] # (Auto) Eos # (Auto) Baso # (Auto) Abs Immat Gran (auto) Absolute Neuts (auto) Absolute Nucleated RBC Nucleated RBC % (auto) PT INR Sodium Potassium Chloride Carbon Dioxide Anion Gap BUN Creatinine Estim Creat Clear Calc Estimated GFR POC Glucose 114 81 Random Glucose Calcium Phosphorus Magnesium Total Bilirubin Direct Bilirubin AST ALT Alkaline Phosphatase Troponin I High Sens Total Protein Albumin Urine Color Urine Appearance Urine pH Ur Specific [place] Urine Protein Urine Glucose (UA) Urine Ketones Urine Blood Urine Nitrite Ur Leukocyte Esterase Urine RBC Urine WBC Ur Squamous Epith Cells Urine Bacteria Hyaline Casts Blood Type Antibody Screen Airway Mallampati Class: I TM Dist: >3cm Loose/Missing/Broken Teeth: No Heart: Off nicardipine infusion for HTN Assessment and Plan Assessment Anesthesia Assessment: Anesthesia Plan Discussed and Chart Reviewed Final Anesthetic Review Family History of Problems with Anesthesia: No History of Problems with Anesthesia: Yes (PONV) NPO: Yes ASA Class: IV and Emergency Final Preanesthetic Review: No Changes in Pt Med Stat, Meds/Allgs Chart Reviewed, Consent Obtained/Reviewed and Anes Risks/Benef Reviewed Patient Risk: High Procedure Risk: Intermediate Anesthetic Plan Anesthetic Plan: MAC: Disposition: Standard PACU
--- NOTE | 2023-01-24 18:24 | MHC.SHP ---
Pre-Procedural Eval Section A Date of Service: 01/24/23 The patient is an INPATIENT: Yes The History & Physical has been completed within 30 days and I have reviewed it.: Yes Section B Chief Complaint: 3rd degree AV heart block Allergies: Allergies Allergy/AdvReac Type Severity Reaction Status Date / Time No Known Allergies Allergy Verified 01/23/23 18:20 Plan I have reviewed the history and physical and performed a pertinent physical examination on my patient. No changes have occurred unless specified. Plan for dc ppm. Discussed with patient and family. Full consult to follow. Time Spent With Patient Time: Total time managing care of this patient today ____ minutes.
--- NOTE | 2023-01-24 18:38 | P.CONGS_ITS ---
History of Present Illness Consult details Consult date: 01/24/23 Requesting physician: Francis Anand Narrative: 72-year-old female who presented yesterday with word-finding difficulty and elevated blood pressures and was noticed to be in complete heart block.? She was admitted to the intensive care unit for close monitoring and permanent pacemaker placement today.? She was started on Cardene drip overnight.? At the time of interview she said she is feeling much better.? Her word-finding difficulty has improved as her blood pressure got better.? She appears to be due to 1 heart block on telemetry.? No dizziness but she has been feeling tired for few weeks.? No history of syncope.? No chest discomfort.? CTA of head and neck were negative for any high-grade stenosis any vessels 1st or stroke. Chest x-ray was reviewed interpreted by me directly showing no acute cardiopulmonary processes. Other than above, 12 point review of systems was done and documented separately in the chart And negativewith detailed social and family history. [facility] Past Medical History Medical History Depression Diabetes mellitus Hyperlipidemia Hypertension Surgical History Surgical History History of back surgery History of lumpectomy of right breast History of right breast biopsy History of tubal ligation Social History Social History Household Members: Spouse Housing: House Do you presently have visiting nurse or other home services: No Alcohol intake: never Patient Tobacco Use Status: Never used Tobacco Smoked in Last 30 Days: No e-Cigarette/Vaping Use: Never Used Patient Interested in Nicotine Replacement: No Second Hand Smoke Exposure: No Use of substances other than those prescribed or required for medical reasons: No Currently Displaying Signs/Symptoms of Drug Intoxication Withdrawal: No Any prior treatment program specific to substance use: No Have you been hit, kicked, punched, or otherwise hurt by someone within the past year? If so, by whom?: No Do you feel safe in your current relationship?: Yes Is there a partner from a previous relationship who is making you feel unsafe now?: No Are you made to feel afraid or neglected: No Advance Directives: No Advance Directives Information Provided: No Do you have thoughts of harming others: None Recently lost weight without trying: No Nutrition Risks: No Nutritional Risk Patient : No : No Poor oral hygiene: No service: No Current occupational status: employed Meds Allergies Allergy/AdvReac Type Severity Reaction Status Date / Time No Known Allergies Allergy Verified 01/23/23 18:20 Active Medications: Current Medications Heparin Sodium (Porcine) (Heparin Sodium,Porcine 5,000 Unit/Ml Vial) 5,000 unit SUBCUT Q8H [facility] Last Admin: 01/24/23 04:39 Dose: Not Given Nicardipine HCl 25 mg/ Sodium (Chloride) 260 mls @ 0 mls/hr IVCONT .Q0M [facility]; Protocol Cefazolin Sodium/Dextrose (Ancef) 2 gm in 50 mls @ 100 mls/hr IV PREOP ONE Stop: 01/24/23 18:52 Insulin Human Lispro (Insulin Lispro 100 Unit/Ml 3 Ml Vial) 0 unit SUBCUT QIDACHS [facility]; Protocol Last Admin: 01/24/23 16:32 Dose: Not Given Ondansetron HCl (Ondansetron Hcl 4 Mg/2 Ml Vial) 4 mg IVPUSH ONCE PRN PRN Reason: Nausea and Vomiting Oxycodone HCl (Oxycodone Hcl Immed Release 5 Mg Tablet) 5 mg PO ONCE PRN PRN Reason: Pain, Severe (Pain Scale 7-10) Home Medications Medication Instructions Recorded Confirmed Last Taken Type lorazepam 0.5 mg tablet 0.5 mg PO BID 01/23/23 01/23/23 01/23/23 History metformin 1,000 mg tablet 1,000 mg PO BID 01/23/23 01/23/23 01/23/23 History metoprolol succinate 50 mg 50 mg PO DAILY 01/23/23 01/23/23 01/23/23 History tablet,extended release 24 hr simvastatin 20 mg tablet 20 mg PO BEDTIME 01/23/23 01/23/23 01/22/23 History venlafaxine 37.5 mg 37.5 mg PO Q OTHER DAY 01/23/23 01/23/23 01/22/23 History capsule,extended release 24 hr Physical Exam Vital Signs: Vital Signs: Last Vital Signs Temp 97.7 F 01/24/23 13:00 Pulse 46 L 01/24/23 18:02 Resp 18 01/24/23 18:02 BP 167/63 H 01/24/23 18:02 Pulse Ox 94 01/24/23 18:02 O2 Del Method Room Air 01/24/23 18:02 BMI result Body Mass Index 22.9 General: No acute distress HEENT: Moist mucous membranes, normocephalic, pupils equal round and reactive to light. Neck: No thyromegaly, supple, no JVD Lymph: No cervical, supraclavicular, or other lymphadenopathy Chest: No chest wall abnormalities or deformities Heart: Regular rate and rhythm bradycardic Lungs: Clear to auscultation bilaterally Abdomen: Soft, nontender, normal bowel sounds Extremities: No edema, cyanosis, or clubbing. Full range of motion Neuro: Grossly intact, alert and oriented x3, and nonfocal Skin: Warm and dry no rashes Affect: Normal Results Labs 01/24/23 04:53 01/24/23 04:53 Labs: Abnormal lab results 01/23/23 01/23/23 01/23/23 Range/Units 18:56 18:56 18:56 WBC 12.5 H (4.8-10.8) X10*3/uL Plt Count 457 H (160-400) X10*3/uL Neut % (Auto) 73.2 H (45-73) % Lymph % (Auto) 18.1 L (20-40) % Abs Immat Gran (auto) 0.05 H (0.00-0.03) X10*3/uL Absolute Neuts (auto) 9.2 H (2.0-8.3) x10*3/uL Potassium 5.2 H (3.3-5.1) mmol/L Chloride 109 H (96-108) mmol/L BUN 35 H (9-16) mg/dL Magnesium 1.5 L (1.6-2.6) mg/dL Total Bilirubin (0.0-1.0) mg/dL Troponin I High Sens 36.8 H (<3.5-17.0) ng/L Total Protein (6.5-8.0) g/dL Ur Specific Chaplin (1.005-1.025) Urine Protein (Neg-Trace) mg/dL Ur Leukocyte Esterase (Negative) Urine WBC (0-5) /HPF 01/23/23 01/23/23 01/24/23 Range/Units 22:23 22:57 04:53 WBC (4.8-10.8) X10*3/uL Plt Count 438 H (160-400) X10*3/uL Neut % (Auto) (45-73) % Lymph % (Auto) (20-40) % Abs Immat Gran (auto) 0.04 H (0.00-0.03) X10*3/uL Absolute Neuts (auto) (2.0-8.3) x10*3/uL Potassium (3.3-5.1) mmol/L Chloride (96-108) mmol/L BUN (9-16) mg/dL Magnesium (1.6-2.6) mg/dL Total Bilirubin (0.0-1.0) mg/dL Troponin I High Sens 37.5 H (<3.5-17.0) ng/L Total Protein (6.5-8.0) g/dL Ur Specific Cha[place]in >= 1.030 H (1.005-1.025) Urine Protein 100 (2+) H (Neg-Trace) mg/dL Ur Leukocyte Esterase Moderate (2+) H (Negative) Urine WBC 21-50 H (0-5) /HPF 01/24/23 Range/Units 04:53 WBC (4.8-10.8) X10*3/uL Plt Count (160-400) X10*3/uL Neut % (Auto) (45-73) % Lymph % (Auto) (20-40) % Abs Immat Gran (auto) (0.00-0.03) X10*3/uL Absolute Neuts (auto) (2.0-8.3) x10*3/uL Potassium (3.3-5.1) mmol/L Chloride (96-108) mmol/L BUN 30 H (9-16) mg/dL Magnesium (1.6-2.6) mg/dL Total Bilirubin 1.2 H (0.0-1.0) mg/dL Troponin I High Sens (<3.5-17.0) ng/L Total Protein 6.4 L (6.5-8.0) g/dL Ur Specific Cha[place]in (1.005-1.025) Urine Protein (Neg-Trace) mg/dL Ur Leukocyte Esterase (Negative) Urine WBC (0-5) /HPF Short CBC 01/23/23 01/24/23 Range/Units 18:56 04:53 WBC 12.5 H 10.8 (4.8-10.8) X10*3/uL Hgb 12.7 12.8 (12.0-16.0) g/dl Hct 38.4 38.2 (37.0-47.0) % Plt Count 457 H 438 H (160-400) X10*3/uL BMP 01/23/23 01/24/23 18:56 04:53 Sodium 140 140 Potassium 5.2 H 4.2 Chloride 109 H 108 Carbon Dioxide 22 22 BUN 35 H 30 H Creatinine 1.16 1.02 Calcium 9.8 9.8 Liver Function 01/23/23 01/24/23 Range/Units 18:56 04:53 Total Bilirubin 0.9 1.2 H (0.0-1.0) mg/dL Direct Bilirubin 0.2 (0.0-0.5) mg/dL AST 25 26 (5-31) U/L ALT 20 19 (0-31) U/L Alkaline Phosphatase 106 107 (39-117) U/L Albumin 4.3 4.0 (3.5-5.0) g/dL Urine 01/23/23 Range/Units 22:23 Urine Color Yellow Urine Appearance Clear Urine pH 5.0 (5.0-9.0) Ur Specific Cha[place]in >= 1.030 H (1.005-1.025) Urine Protein 100 (2+) H (Neg-Trace) mg/dL Urine Glucose (UA) Negative (Negative) mg/dL All other labs normal. Imaging Chest x-ray: report reviewed and image reviewed Assessment and Plan (1) Third degree AV block: Status: Acute Plan 72-year-old woman presented initially with difficulty finding words and was admitted found to be in complete heart block. Currently she seems like she is in 2-1 block. Her symptoms have improved significantly probably with the blood pressure control and her heart rate is a little bit higher now and the 40s as it was in the 30s previously. I had a discussion with her and her family about the complete heart block and elevated blood pressure with the potential treatments would be. I discussed at length the risks, benefits, and alternatives of a dual-chamber permanent pacemaker placement which she and her family understood and agreed to proceed. She has been NPO. Afterwards she will be in a sling for 2 days. Movement restrictions will be in place for 6 weeks as per protocol. Time Spent With Patient Time: Total time managing care of this patient today ____ minutes. Procedures Date of Service Date of Service: 01/24/23
[2023-01-24] MEDS: ceFAZolin Sodium/Dextrose,Iso 2 GM/50 ML PIGGYBACK IV (18:40)
[2023-01-24] MEDS: Acetaminophen 1,000 MG/100 ML PIGGYBACK 400 MG IV (19:00)
--- NOTE | 2023-01-24 19:55 | W.PM.OPN ---
Operative Note Operative Note Date of Service: 01/24/23 Narrative: Preoperative diagnosis: complete heart block Postoperative diagnosis: Same Operation: Placement of dual-chamber permanent pacemaker with fluoroscopic guidance Surgeon: Jim Morton MD Specimens: None EBL: 5 cc Operative findings: The pacemaker placed was a [employer] MRI serial [id number]. The atrial lead was a [employer] serial number [id number]. The ventricular lead was a [employer] serial number e.d. [id number]. Parameters in the right atrial lead sensing was 1.3 mV with an impedance of 450 Ohms and a threshold of 0.5 volts at 0.4 milliseconds. In the ventricular lead threshold was 0.5 volts at 0.4 milliseconds with an impedance of 600 Ohms and R-wave greater than 12. Patient tolerated procedure well. Operation in detail: The patient was brought to the operating room, placed supine on the operating room table, anesthesia moderate of ices were placed, and the patient was gently sedated. A time-out was performed confirming the correct patient site and procedure. After injection of local anesthetic, a 3 cm incision was made in the left infraclavicular region and carried down to the pectoralis fascia with electrocautery. The patient was then placed in Trendelenburg and an 18 gauge needle was used to access subclavian vein on the 1st take. And a wire was placed into the right atrium under fluoroscopic guidance. A 2nd 18 gauge needle was then used to access the subclavian vein again on the 1st ache and a wire was placed under fluoroscopic guidance and parked in the right atrium. The patient was then taken out of Trendelenburg and a pocket was formed using blunt and electrocautery dissection. The 1st 6 Stateless sheath was then placed over wire and the wire and dilator were removed. The ventricular lead was then placed through the sheath and parked in the right atrium and the peel-away sheath was removed. After several attempts using a curved stylet we were eventually able to access the right ventricle and the tip of the lead was positioned at the right ventricular apex. The endocardial screw was deployed and the lead was tested with excellent parameters above. This lead was then secured with silk sutures to the pectoralis fascia. The 2nd 6 Stateless sheath was then placed over the 2nd wire and a wire dilator removed. The atrial lead was then placed and parked in the right atrium. AJ stylet was used to position this in the right atrial appendage. The endocardial screws deployed and the lead was tested with excellent parameters above. This lead was also secured with silk sutures to the pectoralis fascia. The pocket was then copiously irrigated with antibiotic solution. The leads were then placed in their appropriate receptacles and the pacemaker was tested again with excellent parameters. The generator and excess lead was then placed into the pocket. The wound was then closed with a deep running 3-0 Vicryl suture followed by running 3-0 Vicryl suture and Dermabond glue in the skin. The patient was then brought back to the ICU in stable condition.
[2023-01-24] MEDS: ondansetron HCL 4 MG/2 ML VIAL IVPUSH (20:20)
[2023-01-24 20:48] LABS: Glucose, Whole Blood 106 mg/dL (60-115)
[2023-01-24 21:28] LABS: Glucose, Whole Blood 111 mg/dL (60-115)
[2023-01-25] VITALS: PULSE 99; RESP 20; TEMP 36.1; O2SAT 94
[2023-01-25 03:51] VITALS: BP 184/88; PULSE 98; RESP 20; TEMP 36.2; O2SAT 97
[2023-01-25] MEDS: Heparin Sodium,Porcine 5,000 UNIT/ML VIAL 5000 UNIT SUBCUT ×2 (05:27→13:47)
[2023-01-25 05:59] VITALS: BMI 23.8
[2023-01-25 07:22] VITALS: BP 160/78; PULSE 99; RESP 19; TEMP 36.1; O2SAT 99
[2023-01-25 07:23] LABS: Glucose, Whole Blood 145 mg/dL (60-115)
[2023-01-25 07:56] LABS: MANUAL DIFF FLAG NO
[2023-01-25 08:04] LABS: Basophils Percent Auto 0.2 % (0-2); Hematocrit 37.1 % (37.0-47.0); Hemoglobin 12.4 g/dl (12.0-16.0); Imm Gran Abs Auto 0.04 X10*3/uL (0.00-0.03); Imm Gran Pct Auto 0.4 % (0.0-0.4); Lymphocytes Absolute Auto 0.7 X10*3/uL (1.2-4.9); Lymphocytes Percent Auto 7.4 % (20-40); Mean Corpuscular HGB Conc 33.4 g/dl (31.0-35.0); Mean Corpuscular Hemoglobin 30.2 pg (27.0-33.0); Mean Corpuscular Volume 90.5 fL (80.0-98.0); Mean Platelet Volume 9.7 fL (9.4-12.3); Monocytes Absolute Auto 0.4 X10*3/uL (0.1-1.2); Monocytes Percent Auto 4.4 % (2-11); Neutrophils Absolute Auto 8.8 x10*3/uL (2.0-8.3); Neutrophils Percent Auto 87.6 % (45-73); Platelet Count 437 X10*3/uL (160-400); Red Cell Distribution Width 13.2 % (11.0-16.0)
[2023-01-25 08:26] LABS: Blood Urea Nitrogen 33 mg/dL (9-16); Calcium 9.6 mg/dL (8.4-10.2); Creatinine Clr Calc Pharmacy 33.2; Estimated Glomerular Filt Rate 46; Glucose Random 144 mg/dL (60-115); Magnesium 1.8 mg/dL (1.6-2.6); Phosphorus 5.8 mg/dL (2.7-4.5)
[2023-01-25 08:35] LABS: Anion Gap 20 (12-20); Carbon Dioxide 18 mmol/L (22-29); Chloride 109 mmol/L (96-108); Potassium 4.9 mmol/L (3.3-5.1); Sodium 142 mmol/L (135-145)
[2023-01-25] MEDS: Metoprolol Succinate ER 50 MG TAB.ER.24H PO (09:04)
[2023-01-25] MEDS: metFORMIN HCl 1,000 MG TABLET 1000 MG PO (09:04)
[2023-01-25] MEDS: LORazepam 0.5 MG TABLET PO (09:05)
[2023-01-25] MEDS: Acetaminophen 325 MG TABLET 650 MG PO (09:15)
--- NOTE | 2023-01-25 10:57 | PM.PNTS ---
Subjective Subjective Date of Service: 01/25/23 Interval history: Patient was seen and examined this morning. Denies any concerning symptoms such as fever, chills, hemoptysis, shortness of breath states that her pain surrounding her surgical incisional site has been reasonably well controlled on current analgesics. Remaining 10 point review of systems negative at this time: Physical Exam Vital Signs: Vital Signs: Last Vital Signs Temp 96.9 F 01/25/23 07:22 Pulse 99 01/25/23 07:22 Resp 19 01/25/23 07:22 BP 160/78 H 01/25/23 07:22 Pulse Ox 99 01/25/23 07:22 O2 Del Method Nasal Cannula 01/25/23 07:22 O2 Flow Rate 2 01/25/23 07:22 BMI result Body Mass Index 23.8 Const: Other: pt is alert and orientated this am. She denies any difficulty finding her words. HEENT: Other: Nc/AT, EOMI, no sinus tenderness, tongue midline, hearing intact, no JVD and no cardotid bruits. Chest: Other: Left mid clavicular surgical incision appears clean dry and intact with no evidence of hematoma, erythema or drainage Resp: Effort & Inspection: normal respiratory effort and able to speak in complete sentences Auscultation: clear to auscultation bilaterally Cardio: Other: regular Rate: bradycardic GI: Inspection: Yes normal to inspection Palpation (GI): Soft to palpation Auscultation: normal bowel sounds Neuro: Other: grossly intact Procedures Date of Service Date of Service: 01/25/23 Progress Note: A&P Assessment and plan (1) Third degree AV block: Status: Acute Plan POD#1 S/P Placement of dual-chamber permanent pacemaker with fluoroscopic guidance Her [employer] permanent pacemaker was interrogated this morning by rep and is working appropriately She has a scheduled follow-up appointment with Dr. Jim Morton on February 07 at 9 AM at the [facility] thoracic surgical department ACTIVITY: ARM MOVEMENT RESTRICTIONS: No lifting your left arm over your head or behind your back, no pushing/pulling/lifting anything >10lb with your left arm for 6-8 weeks. This ensures the pacemaker wires stay in place and do not get pulled out accidentally. Make sure you are doing gentle range of motion exercises with the left arm (such as pendulum exercise) to make sure your elbow and shoulder do not get frozen up. ARM SLING: Keep the sling on until tomorrow. You may then take the sling off and leave it off. HOWEVER, if you are noticing a difficulty limiting your left arm movement (as outline above) then wear your sling during the day to make sure you are adhering to the restrictions above. Ask your doctor when you can expect to return to work. You can still exercise. It is good for your body and your heart. Talk with your doctor about an exercise plan. INCISION CARE: You may shower startingtomorrow, 01/26/2023. Sponge bathe only until then. Do not submerge yourself in water (baths, pools, etc.) for 2 weeks. Monitor the incision for increased redness, swelling, bruising, pain, open area, or drainage. OTHER PRECAUTIONS: Before you receive any treatment, tell all healthcare providers (including your dentist) that you have a pacemaker. You will be given an ID card that contains information about your pacemaker. Always carry this card with you. You can show this card if your pacemaker sets off a metal detector. You should also show it to avoid screening with a hand-held security wand. Keep your cell phone away from your pacemaker. Do not carry the phone in your shirt pocket, even it if is turned off. Avoid strong magnets. Examples are those used in MRI's or in hand-held security wands. Avoid strong electrical arnold. Examples are those made by radio transmitting towers, ham radios, and heavy-duty electrical equipment. Avoid leaning over the open herrmann of a running car. A running engine creates an electrical field. Most household and yard appliances will not cause any problems. If you use any large power tools, such as an industrial clinical research physician, talk with your doctor. WHEN TO CALL YOUR DOCTOR: Call your doctor immediately if you have any of the following: Dizziness Chest pain Lack of energy Fainting spells Twitching chest muscles Rapid pule or pounding heartbeat Shortness of breath Pain around your pacemaker Fever above 100.4 F (38 C) or other signs of infection (redness, swelling, drainage, or warmth at the incision site). Hiccups that will not stop FOLLOWUP APPOINTMENTS: You have a scheduled follow-up appointment with Dr. Jim Morton on February 07 at 9 AM at the [facility] thoracic surgical department The office number is . Call your lead injection mold technician to make an appointment for the next couple weeks. Make regular follow-up appointments with your doctor. He or she will check the pacemaker to make sure it is working properly. Time Spent With Patient Time: Total time managing care of this patient today ____ minutes. Quality Stroke Does the patient have a stroke diagnosis?: No VTE Prior VTE?: No VTE Risk Level:: Medical - moderate - high VTE Device Contraindication: N/A - Device Ordered VTE Drug Contraindication: N/A - Med Ordered
[2023-01-25 11:37] LABS: Glucose, Whole Blood 134 mg/dL (60-115)
[2023-01-25 11:45] VITALS: BP 140/90; PULSE 85; RESP 19; TEMP 36.9; O2SAT 96
--- NOTE | 2023-01-25 12:42 | HO.POSTANES ---
Post Anesthesia Evaluation Post Anesthesia Evaluation Vital Signs: Vital Signs Temp Pulse Resp BP Pulse Ox O2 Del Method O2 Flow Rate 01/25/23 11:45 98.4 F 85 19 140/90 H 96 Nasal Cannula 2 01/25/23 07:22 96.9 F 99 19 160/78 H 99 Nasal Cannula 2 01/25/23 03:51 97.1 F 98 20 184/88 H 97 Nasal Cannula 2 Anesthesia: General Mental Status: Awake Pain Control: Satisfactory Nausea/Vomiting: None Hydration: Adequate Anesthesia-Related Issues: No Anes. Related Issues
--- NOTE | 2023-01-25 14:14 | W.MHC.F2F ---
Service Date Service Date: 01/25/23 Encounter Date of encounter: 01/25/23 Reasons for Services Signs and symptoms assessed: Altered mental status, bradycardia Homebound: Leaving the home is medically contraindicated at this time without the asist of a device and/or another person due th the listed conditions above and below. Reason homebound: other (near syncope, confusion related to heart block and now has pace maker) Homebound supporting statement: homebound du to altered mental status related to complete heart block and necessitated pacemaker Certification: Based on the above findings, I certify that this patient is confined to the home and needs intermittent care home care, physical therapy and/or speech therapy, or continues to need occupational therapy. The patient is under my care, and I have initiated the establishment of the plan of care. The patient will be followed by a physician who will periodically review the plan of care. Time Spent With Patient Time: Total time managing care of this patient today ____ minutes.
--- NOTE | 2023-01-25 14:29 | MHC.CM.PN ---
Patient has been medically cleared for dc to home today with services. A referral has been made to [facility], who has been notified of today's dc.Last IMM was addressed yesterday.
--- NOTE | 2023-01-25 15:24 | MHC.CM.PN ---
CORRECTION: Patient will dc to home with [facility], not [facility](there would be a delay in SOC ).
--- NOTE | 2023-01-25 16:25 | P.PNCA_ITS ---
Subjective Subjective Date of Service: 01/25/23 Interval history: Seen and examined at bedside. Left chest wall pacemaker site stable. Pacemaker interrogated and interrogation was normal. Physical Exam Vital Signs: Last Vital Signs Temp 98.4 F 01/25/23 11:45 Pulse 85 01/25/23 11:45 Resp 19 01/25/23 11:45 BP 140/90 H 01/25/23 11:45 Pulse Ox 96 01/25/23 11:45 O2 Del Method Nasal Cannula 01/25/23 11:45 O2 Flow Rate 2 01/25/23 11:45 BMI result Body Mass Index 23.8 GENERAL APPEARANCE: in no acute distress, pleasant. NECK: no carotid bruit, no jugular venous distention. SKIN: no suspicious lesions, warm and dry. HEART: no murmurs, regular rate and rhythm. LUNGS: clear to auscultation bilaterally. ABDOMEN: soft, nontender. EXTREMITIES: no edema. PERIPHERAL PULSES: equal. NEUROLOGIC: No gross deficits, AAO X 3 Objective Labs and Meds 01/25/23 07:31 01/25/23 07:31 Lab results: Laboratory Results - last 24 hr 01/24/23 01/24/23 01/24/23 16:21 20:15 21:25 WBC RBC Hgb Hct MCV MCH MCHC RDW Plt Count MPV Immature Gran % (Auto) Neut % (Auto) Lymph % (Auto) [place] % (Auto) Eos % (Auto) Baso % (Auto) Lymph # (Auto) [place] # (Auto) Eos # (Auto) Baso # (Auto) Abs Immat Gran (auto) Absolute Neuts (auto) Absolute Nucleated RBC Nucleated RBC % (auto) Sodium Potassium Chloride Carbon Dioxide Anion Gap BUN Creatinine Estim Creat Clear Calc Estimated GFR POC Glucose 81 106 111 Random Glucose Calcium Phosphorus Magnesium 01/25/23 01/25/23 01/25/23 07:10 07:31 07:31 WBC 10.0 RBC 4.10 L Hgb 12.4 Hct 37.1 MCV 90.5 MCH 30.2 MCHC 33.4 RDW 13.2 Plt Count 437 H MPV 9.7 Immature Gran % (Auto) 0.4 Neut % (Auto) 87.6 H Lymph % (Auto) 7.4 L [place] % (Auto) 4.4 Eos % (Auto) 0.0 Baso % (Auto) 0.2 Lymph # (Auto) 0.7 L [place] # (Auto) 0.4 Eos # (Auto) 0.0 Baso # (Auto) 0.0 Abs Immat Gran (auto) 0.04 H Absolute Neuts (auto) 8.8 H Absolute Nucleated RBC 0.000 Nucleated RBC % (auto) 0.0 Sodium 142 Potassium 4.9 Chloride 109 H Carbon Dioxide 18 L Anion Gap 20 BUN 33 H Creatinine 1.17 Estim Creat Clear Calc 33.2 Estimated GFR 46 POC Glucose 145 H Random Glucose 144 H Calcium 9.6 Phosphorus 5.8 H Magnesium 1.8 01/25/23 11:21 WBC RBC Hgb Hct MCV MCH MCHC RDW Plt Count MPV Immature Gran % (Auto) Neut % (Auto) Lymph % (Auto) [place] % (Auto) Eos % (Auto) Baso % (Auto) Lymph # (Auto) [place] # (Auto) Eos # (Auto) Baso # (Auto) Abs Immat Gran (auto) Absolute Neuts (auto) Absolute Nucleated RBC Nucleated RBC % (auto) Sodium Potassium Chloride Carbon Dioxide Anion Gap BUN Creatinine Estim Creat Clear Calc Estimated GFR POC Glucose 134 H Random Glucose Calcium Phosphorus Magnesium Imaging Radiologist's impression: Impressions Guidance Fluoroscopy 01/24/23 19:45 IMPRESSION: Fluoroscopy guidance for pacemaker placement. Chest X-Ray 01/24/23 20:32 IMPRESSION: 1. Left-sided pacer with leads projecting over the right atrium and right ventricle. 2. No pneumothorax. 3. No new focal airspace opacity. 4. Stable cardiomegaly. Progress Note: A&P Assessment and plan (1) Hypertensive emergency: Status: Acute (2) Third degree AV block: Status: Acute Plan Pleasant 72 year female here for follow-up. She presented with complete heart block and word-finding difficulty. She had significantly elevated blood pressures. She was on Cardene drip in the intensive care unit and when she had pacemaker placement. Currently blood pressure control is better. Denying any chest discomfort, shortness of breath or any neurological issues. Left chest wall pacemaker site is stable. Okay to discharge from cardiovascular point of view. Will follow-up in the o ffice. We will take over the pacemaker monitoring from here onwards. Thank you for allowing me to participate in the care of your patient. Please feel free to contact me if you have any questions. Time Spent With Patient Time: Total time managing care of this patient today ____ minutes. Progress Note: Quality Stroke Does the patient have a stroke diagnosis?: No Procedures Date of Service Date of Service: 01/25/23
--- NOTE | 2023-01-26 07:12 | P.DS_ITS ---
DS: Providers Provider Date of Service: 01/26/23 Date of admission: 01/23/23 21:49 Primary care physician: David Henriquez MD DS: Diagnosis Discharge Diagnosis (1) Hypertensive emergency: Status: Acute (2) Third degree AV block: Status: Acute DS: Summary Hospital Course Hospital Course: Chief Complaint: AMS The patient is a 72-year-old female with a past medical history of diabetes mellitus, hyperlipidemia, hypertension, anxiety/ depression? who presents to the emergency room? with altered mental status.? In the emergency? department? patient reported she was having difficulty saying words that lasted for appro ximately 7 hours prior to arrival that resolved prior to arrival to ED.? ? On arrival to the emergency room the patient noted to be in a third-degree AV heart block rate of 40s, confirmed with EKG and cardiology.? Blood pressure elevated to? systolic of 200s. Patient? asymptomatic.? Patient on metoprolol at home, but unsure as to why. ? Thoracic team was consulted,? planning to do pacemaker tomorrow.? ?Laboratory data significant for? WBC 12.5, platelets 457,? potassium 5.2, BUN 35, creatinine 1.16, magnesium 1.5.? IMAGING:? Chest Xray-? no acute issues HEAD CT- no acute bleed, ? no high-grade stenosis or large vessel occlusion? ?Pacer pads placed on patient,? Patient will be admitted to ICU for hemodynamic monitoring Hospial course: The patient presented with confusion (word finding difficulty) and was diagnosed with high-degree AV block and HTN emergency . The patient was closely monitored in the ICU on cardene drip and underwent a pacemaker placement by Dr. Lawler, which went smoothly. The pacemaker was checked the following day without any issues. The patient is being discharged with receive VNS along with outpatient follow-up with cardiology and thoracic surgery Final diagnoses: High degree AV Block HTN emergency Time Spent with Patient Time attestation: Total time managing care of this patient today ____ minutes. Discharge coordination time: Greater than 30 minutes Quality: Safe Use of Opioids Does Pt have an Active Cancer Diagnosis on the Problem List?: No Quality: Stroke Does the patient have a stroke diagnosis?: No Physical Exam Vital Signs: Vital Signs: Selected Entries 01/25/23 11:45 Temperature 98.4 F Pulse Rate 85 Respiratory Rate 19 Blood Pressure 140/90 H Pulse Oximetry 96 Const: Other: General: AO X 3, no acute distress Resp: CTA bilateral CVS: S1,S2,RRR GI: +BS, NT, no distention Skin: No rash Neuro: motor grossly intact Psych: appropriate affect DS: Data Data Completed and Pending Labs on day of discharge: Laboratory Results - last 24 hr 01/25/23 01/25/23 01/25/23 07:10 07:31 07:31 WBC 10.0 RBC 4.10 L Hgb 12.4 Hct 37.1 MCV 90.5 MCH 30.2 MCHC 33.4 RDW 13.2 Plt Count 437 H MPV 9.7 Immature Gran % (Auto) 0.4 Neut % (Auto) 87.6 H Lymph % (Auto) 7.4 L Leslie % (Auto) 4.4 Eos % (Auto) 0.0 Baso % (Auto) 0.2 Lymph # (Auto) 0.7 L [place] # (Auto) 0.4 Eos # (Auto) 0.0 Baso # (Auto) 0.0 Abs Immat Gran (auto) 0.04 H Absolute Neuts (auto) 8.8 H Absolute Nucleated RBC 0.000 Nucleated RBC % (auto) 0.0 Sodium 142 Potassium 4.9 Chloride 109 H Carbon Dioxide 18 L Anion Gap 20 BUN 33 H Creatinine 1.17 Estim Creat Clear Calc 33.2 Estimated GFR 46 POC Glucose 145 H Random Glucose 144 H Calcium 9.6 Phosphorus 5.8 H Magnesium 1.8 01/25/23 11:21 WBC RBC Hgb Hct MCV MCH MCHC RDW Plt Count MPV Immature Gran % (Auto) Neut % (Auto) Lymph % (Auto) [place] % (Auto) Eos % (Auto) Baso % (Auto) Lymph # (Auto) [place] # (Auto) Eos # (Auto) Baso # (Auto) Abs Immat Gran (auto) Absolute Neuts (auto) Absolute Nucleated RBC Nucleated RBC % (auto) Sodium Potassium Chloride Carbon Dioxide Anion Gap BUN Creatinine Estim Creat Clear Calc Estimated GFR POC Glucose 134 H Random Glucose Calcium Phosphorus Magnesium Discharge Plan Discharge Anticipated Discharge Date/Time: 01/25/23 14:07 Patient Disposition: Home Health Service Discharge Diagnosis: Third degree AV block Referrals: [facility] [Outside] - 1 Week David Henriquez MD [Primary Care Provider] - 1 Week Discharge Medications: Continued venlafaxine 37.5 mg capsule,extended release 24hr 37.5 mg PO Q OTHER DAY metoprolol succinate 50 mg tablet extended release 24 hr 50 mg PO DAILY lorazepam 0.5 mg tablet 0.5 mg PO BID simvastatin 20 mg tablet 20 mg PO BEDTIME metformin 1,000 mg tablet 1,000 mg PO BID Discharge Orders: Discharge Order (Routine); Ordered 01/25/23 Ordered By: Parveen Mejia Diet: Advance to usual diet Activity on Discharge: As tolerated Stand Alone Forms: Patient Portal Discharge page Care Plan Goals: full recovery from heart block Health Concerns: third degree av block Plan of Treatment: ACTIVITY: ? ARM MOVEMENT RESTRICTIONS: No lifting your left arm over your head or behind your back, no pushing/pulling/lifting anything >10lb with your left arm for 6-8 weeks.? This ensures the pacemaker wires stay in place and do not get pulled out accidentally.? Make sure you are doing gentle range of motion exercises with the left arm (such as pendulum exercise) to make sure your elbow and shoulder do not get frozen up. ? ARM SLING: Keep the sling on until tomorrow.? You may then take the sling off and leave it off.? HOWEVER, if you are noticing a difficulty limiting your left arm movement (as outline above) then wear your sling during the day to make sure you are adhering to the restrictions above. ? Ask your doctor when you can expect to return to work. ? You can still exercise.? It is good for your body and your heart.? Talk with your doctor about an exercise plan. INCISION CARE: ? You may shower startingtomorrow, 01/26/2023.? Sponge bathe only until then.? Do not submerge yourself in water (baths, pools, etc.) for 2 weeks.? Monitor the incision for increased redness, swelling, bruising, pain, open area, or drainage. OTHER PRECAUTIONS: ? Before you receive any treatment, tell all healthcare providers (including your dentist) that you have a pacemaker. ? You will be given an ID card that contains information about your pacemaker.? Always carry this card with you.? You can show this card if your pacemaker sets off a metal detector.? You should also show it to avoid screening with a hand-held security wand. ? Keep your cell phone away from your pacemaker.? Do not carry the phone in your shirt pocket, even it if is turned off. ? Avoid strong magnets.? Examples are those used in MRI's or in hand-held security wands. ? Avoid strong electrical arnold.? Examples are those made by radio transmitting towers, [employer] radios, and heavy-duty electrical equipment. ? Avoid leaning over the open herrmann of a running car.? A running engine creates an electrical field.? Most household and yard appliances will not cause any problems.? If you use any large power tools, such as an industrial laborer starch factory, talk with your doctor. WHEN TO CALL YOUR DOCTOR: Call your doctor immediately if you have any of the following: ? Dizziness ? Chest pain ? Lack of energy ? Fainting spells ? Twitching chest muscles ? Rapid pule or pounding heartbeat ? Shortness of breath ? Pain around your pacemaker ? Fever above 100.4 F (38 C) or other signs of infection (redness, swelling, drainage, or warmth at the incision site). ? Hiccups that will not stop FOLLOWUP APPOINTMENTS: ? You have a scheduled follow-up appointment with Dr. Jim Morton on February 07 at 9 AM at the [facility] thoracic surgical department The office number is? Call your textile conservator to make an appointment for the next couple weeks.? Make regular follow-up appointments with your doctor.? He or she will check the pacemaker to make sure it is working properly. Assessment: See above Discharge Date/Time: 01/25/23 15:44
[2023-01-27 01:44] LABS: Lyme Abs Screen <0.90 index
== END 2023-01-25 15:44 | disposition home health service (06) | DRG 243 ==
LOC: HO.ED 21:56 → HO.EDOVER 22:04 → HO.ICU 22:11 → HO.IMC 01-24 21:00
PROVIDERS: Internal Medicine Pulmonary Disease; Physician Assistant; Student in an Organized Health Care Education/Training Program; Surgery; Admitting Provider Registered Nurse Community Health; Emergency Provider Emergency Medicine Emergency Medical Services; PCP Internal Medicine; Visit Provider Internal Medicine
PROC: 0JH606Z Insertion of Pacemaker, Dual Chamber into Chest Subcutaneous Tissue and Fascia, Open Approach (ICD-10-PCS; principal; 2023-01-24 17:00)
DX: I44.2 Atrioventricular block, complete (principal); I16.1 Hypertensive emergency; N17.9 Acute kidney failure, unspecified; E11.9 Type 2 diabetes mellitus without complications; I10 Essential (primary) hypertension; E78.5 Hyperlipidemia, unspecified; F41.9 Anxiety disorder, unspecified; F32.A Depression, unspecified; Z79.84 Long term (current) use of oral hypoglycemic drugs; Z79.899 Other long term (current) drug therapy
CPT/HCPCS: 36415; 70496; 70498; 71045; 80048; 80053; 80076; 81001; 82947; 83735; 84100; 84484; 85025; 85610; 86617; 86618; 86850; 86900; 86901; 87086; 87147; 93005; 99285; C1785; C1892; C1898; J0131; J0690; J1100; J1643; J2405; J2550; J2795; J3010; J3370; J3475; Q9967

== ENCOUNTER 2023-02-03 17:35 | Observation (INO) | payer MEDICARE, SELFPAY ==
--- NOTE | ~2023-02-03 | CT_ITS ---
EXAMINATION: CT HEAD WITHOUT CONTRAST CLINICAL INFORMATION: Slurred speech. COMPARISON: CTA head and neck 01/23/2023. TECHNIQUE: Contiguous axial imaging was performed from the skull base to vertex without intravenous administration of contrast. This CT examination was performed using dose optimization techniques as appropriate, variously including the following: *Automated exposure control *Adjustment of mA and/or kV according to patient size (this includes techniques or standardized protocols for targeted exams where dose is matched to indication/reason for exam; i.e. extremities or head) *Use of iterative reconstruction technique DLP: 591 mGy-cm FINDINGS: There is no evidence of acute intracranial hemorrhage or edematous territorial infarction. A few foci of hypoattenuation in the periventricular and deep white matter are consistent with mild microangiopathy. Robertson-white matter differentiation is preserved. Proportional prominence of the ventricles and sulcal spaces. No evidence for obstructive hydrocephalus. No abnormal mass effect or midline shift. Redemonstration of a large arachnoid cyst in the anterior right middle cranial fossa and as well as a small pineal cyst, not significantly changed. No extra-axial fluid collections. No acute soft tissue or osseous abnormalities. The mastoid air cells and paranasal sinuses are clear. Bilateral lens extraction. CT/CT head for stroke IMPRESSION: No evidence of acute intracranial hemorrhage or edematous territorial infarction. This result was discussed with at 02/03/2023 6:09 PM and it was ascertained that the content was understood at the time of direct communication.
--- NOTE | ~2023-02-03 | CT_ITS ---
EXAMINATION: CTA OF THE HEAD AND NECK CLINICAL INFORMATION: Slurred speech. COMPARISON: Recent CT angiogram from 01/23/2023. TECHNIQUE: Test bolus sequences followed by intravenous administration 70 mL of Omnipaque 350. Helical imaging was performed in the axial plane from the mediastinum to the skull vertex. Delayed postcontrast imaging of the head was also performed. The data was processed at the electronics engineering technologist's workstation for generation of MIP sequences. Three-dimensional volume rendered reformatted images were also generated at an offline 3-D workstation. Stenoses are assessed in accordance with NASCET criteria unless otherwise indicated. This CT examination was performed using dose optimization techniques as appropriate, variously including the following: *Automated exposure control *Adjustment of mA and/or kV according to patient size (this includes techniques or standardized protocols for targeted exams where dose is matched to indication/reason for exam; i.e. extremities or head) *Use of iterative reconstruction technique DLP: 1451 mGy-cm. FINDINGS: CTA neck: The imaged aortic arch and origins of the great vessels are normal. The common carotid arteries are widely patent. The carotid bifurcations are patent with mild atherosclerotic wall calcifications on the left side. The cervical internal carotid arteries are normal. The vertebral arteries opacify normally and are of normal caliber. Mild heterogeneity of the thyroid gland is stable. Severe mid to lower cervical spondylosis with reversal of the normal cervical lordosis again noted. Multilevel hypertrophic facet arthropathy results in significant foraminal encroachment. There is mosaic attenuation in the lungs with areas of air trapping, as seen on prior imaging. CTA head: The intradural vertebral arteries and basilar artery are normal. Mild to moderate stenotic narrowing in the P2 segment of the left HOT ROOM ATTENDANT is unchanged. There is mild stenosis in the right P3 segment as well, also evident on prior imaging. Atherosclerotic wall calcifications noted in the internal carotid arteries with mild stenotic narrowing in the proximal supraclinoid segments, unchanged. The RIKKI and MCA vascular complexes bilaterally are normal. There is no abnormal parenchymal or leptomeningeal enhancement. The venous sinuses opacify normally. CT/CT angio head neck stroke IMPRESSION: Stable CT angiogram as compared to the recent prior CTA study. Scattered areas of atherosclerotic wall calcification in the cervical and intracranial carotid vasculature, otherwise stable. No high-grade stenosis or vessel occlusion visible. [id number] stenosis in the P2 and P3 segments of the left posterior cerebral artery without change. Stable significant lower cervical spondylosis with a reversal of the normal cervical lordosis and multilevel hypertrophic facet arthropathy. Imaging findings reported to INEZ Saldaña at 7:24 PM on 02/03/2023.
[2023-02-03 17:41] VITALS: BP 149/98; PULSE 95; RESP 17; TEMP 35.9; O2SAT 98; BMI 22.7
--- NOTE | 2023-02-03 17:41 | ED.NEUROSD ---
HPI - Neuro Symptoms/Deficit General Chief Complaint: Stroke <INEZ Krishnamurthy - Last Filed: 02/03/23 17:46> Stated Complaint: pace maker placed, slurred speech <INEZ Krishnamurthy - Last Filed: 02/03/23 17:46> Time Seen by Provider: 02/03/23 17:50 <INZE Krishnamurthy - Last Filed: 02/03/23 17:46> Source: patient <Mesfin Aguilar MD - Last Filed: 02/03/23 20:40> Mode of arrival: ambulatory <Mesfin Aguilar MD - Last Filed: 02/03/23 20:40> Limitations: no limitations <Mesfin Aguilar MD - Last Filed: 02/03/23 20:40> History of Present Illness HPI Narrative: 72-year-old female with history of diabetes, hypertension, hypercholesterolemia presents with difficulty speaking. The symptoms lasted approximately 8 minutes. She was doing nothing in particular at the time. She denied any headache, nausea, vomiting, chest pain, palpitations, lightheadedness. She denied any numbness or tingling or weakness in any of her extremities. There is no clear relieving or exacerbating features. The symptoms resolved on their own. She is currently asymptomatic. She has never had this happen before. She has no history of neurologic abnormalities according to her. <Mesfin Aguilar MD - Last Filed: 02/03/23 20:40> Related Data Home Medications: Home Medications Medication Instructions Recorded Confirmed lorazepam 0.5 mg tablet 0.5 mg PO BID 01/23/23 01/23/23 metformin 1,000 mg tablet 1,000 mg PO BID 01/23/23 01/23/23 metoprolol succinate 50 mg 50 mg PO DAILY 01/23/23 01/23/23 tablet,extended release 24 hr simvastatin 20 mg tablet 20 mg PO BEDTIME 01/23/23 01/23/23 venlafaxine 37.5 mg 37.5 mg PO Q OTHER DAY 01/23/23 01/23/23 capsule,extended release 24 hr <INEZ Krishnamurthy - Last Filed: 02/03/23 17:46> Allergies/Adverse Reactions: Allergies Allergy/AdvReac Type Severity Reaction Status Date / Time No Known Allergies Allergy Verified 01/23/23 18:20 <INEZ Krishnamurthy Last Filed: 02/03/23 17:46> [facility] Past Medical History Medical History: Medical History Depression Diabetes mellitus Hyperlipidemia Hypertension Pacemaker (~12/2022) <INEZ Krishnamurthy - Last Filed: 02/03/23 17:46> Surgical History: Surgical History History of back surgery History of lumpectomy of right breast History of pacemaker History of right breast biopsy History of tubal ligation <INEZ Krishnamurthy - Last Filed: 02/03/23 17:46> Social History Social History: Social History Household Members: Spouse Housing: House Do you presently have visiting nurse or other home services: No Alcohol intake: never Patient Tobacco Use Status: Never used Tobacco e-Cigarette/Vaping Use: Never Used Second Hand Smoke Exposure: No Advance Directives: No Advance Directives Information Provided: No service: No Current occupational status: employed <INEZ Krishnamurthy - Last Filed: 02/03/23 17:46> Physical Exam Vital Signs: Vital Signs: Last Vital Signs Temp 96.6 F L 02/03/23 17:41 Pulse 95 02/03/23 17:41 Resp 17 02/03/23 17:41 BP 149/98 H 02/03/23 17:41 Pulse Ox 98 02/03/23 17:41 O2 Del Method Room Air 02/03/23 17:41 BMI result Body Mass Index 22.7 <INEZ Krishnamurthy - Last Filed: 02/03/23 17:46> Vital Signs: Last Vital Signs Temp 96.6 F L 02/03/23 17:41 Pulse 95 02/03/23 17:41 Resp 17 02/03/23 17:41 BP 149/98 H 02/03/23 17:41 Pulse Ox 98 02/03/23 17:41 O2 Del Method Room Air 02/03/23 17:41 BMI result Body Mass Index 22.7 <Mesfin Aguilar MD - Last Filed: 02/03/23 20:40> GEN: Well developed, no acute distress, alert, oriented HEENT: Normocephalic, atraumatic, normal external ears, nose appears normal, no oropharyngeal edema or exudates Eyes: Normal to appearance Neck: Supple, no lymphadenopathy Respiratory: Talks in complete sentences, no respiratory distress, clear to auscultation bilaterally Cardiovascular: Regular rate and rhythm, no murmurs rubs or gallops Abdomen: Soft, nontender, nondistended, no guarding, no rebound Back: No CVA tenderness Extremities: No clubbing cyanosis or edema Neurologic: No focal neurologic deficits, cranial nerves 2-12 intact, strength is 5/5 bilaterally, no pronator drift Skin: No rash <Mesfin Aguilar MD - Last Filed: 02/03/23 20:40> Course Course Course Narrative: RME - 72 yo female with history of HTN, DM2, HLD and complete heart block s/p PPM on 01/25 who presents to the ER for evaluation of slurred speech and word finding difficulty that started 15 minutes ago and have since improved. She has history of similar presentation when she was found to have complete heart block and hypertensive emergency. Plan: TIA/Stroke protocol <INEZ Krishnamurthy - Last Filed: 02/03/23 17:46> Reevaluation(s) Reevaluation #1: Patient presents with acute neurologic abnormalities namely speech alteration. Symptoms happened just prior to arrival and resolved after 8 minutes. Her examination reveals no focal neurologic deficits. Patient currently is in CT scan receiving CT and a CTA. I do not believe based on her normal examination at this time she is a tPA candidate. I did review her dry CT scan which revealed an area on the right temporal frontal area of the either encephalomalacia or masses. <Mesfin Aguilar MD - Last Filed: 02/03/23 20:40> Time: 18:04 <Mesfin Aguilar MD - Last Filed: 02/03/23 20:40> Reevaluation #2: Patient is at baseline. She has no active symptoms. There is no evidence of a large territorial infarct. Awaiting CTA results. However, I do not believe patient is a tPA candidate based on her clinical evaluation and imaging studies at this time. I will provide patient with aspirin 324 mg. Patient does not take aspirin. She is right-handed. <Mesfin Aguilar MD - Last Filed: 02/03/23 20:40> Time: 18:37 <Mesfin Aguilar MD - Last Filed: 02/03/23 20:40> Reevaluation #3: Discussed care with the hospitalist. Patient will be admitted. <Mesfin Aguilar MD - Last Filed: 02/03/23 20:40> Time: 20:40 <Mesfin Aguilar MD - Last Filed: 02/03/23 20:40> Medications Administered Discontinued Medications Generic Name Dose Route Start Last Admin Trade Name Freq PRN Reason Stop Dose Admin Iohexol 100 ml 02/03/23 18:02 02/03/23 18:08 Iohexol 350 Mg/Ml 100 Ml Infus..Btl IV 02/03/23 18:03 70 ml ONCE ONE Administration <INEZ Krishnamurthy - Last Filed: 02/03/23 17:46> Medications Administered Discontinued Medications Generic Name Dose Route Start Last Admin Trade Name Freq PRN Reason Stop Dose Admin Iohexol 100 ml 02/03/23 18:02 02/03/23 18:08 Iohexol 350 Mg/Ml 100 Ml Infus..Btl IV 02/03/23 18:03 70 ml ONCE ONE Administration <Mesfin Agiular MD - Last Filed: 02/03/23 20:40> Medical Decision Making Medical Decision Making MDM Narrative: Patient presents with acute alteration of speech. This happened prior to arrival is currently resolved. Examination reveals no focal deficits. Her speech is normal. Her mentation is normal. Differential diagnosis includes TIA, CVA, electrolyte abnormality, transient global amnesia, other neurologic manifestation, patient will have a CT, CTA to rule out acute CVA or other possible diagnoses. Based on my initial evaluation, she is not a tPA candidate. However, will continue to monitor. Will recommend hospitalization for TIA pending any other studies at this time <Mesfin Aguilar MD - Last Filed: 02/03/23 20:40> Differential Diagnosis Differential Diagnoses: The differential diagnosis associated with the presentation includes (See above) <Mesfin Aguilar MD - Last Filed: 02/03/23 20:40> Admission/Observation Consideration of admission/observation: Escalation of care including admission/observation considered <Mesfin Aguilar MD - Last Filed: 02/03/23 20:40> Lab Data [facility] Lab Attestation statement: I reviewed the patient's lab results. <Mesfin Aguilar MD - Last Filed: 02/03/23 20:40> Result Diagrams: 02/03/23 18:31 02/03/23 18:31 <INEZ Krishnaumrthy - Last Filed: 02/03/23 17:46> Labs: Lab Results 02/03/23 02/03/23 02/03/23 Range/Units 18:31 18:31 18:31 WBC 12.6 H (4.8-10.8) X10*3/uL RBC 3.82 L (4.20-5.50) X10*6/uL Hgb 11.5 L (12.0-16.0) g/dl Hct 34.7 L (37.0-47.0) % MCV 90.8 (80.0-98.0) fL MCH 30.1 (27.0-33.0) pg MCHC 33.1 (31.0-35.0) g/dl RDW 13.7 (11.0-16.0) % Plt Count 377 (160-400) X10*3/uL MPV 9.0 L (9.4-12.3) fL Immature Gran % (Auto) 0.5 H (0.0-0.4) % Neut % (Auto) 79.9 H (45-73) % Lymph % (Auto) 9.9 L (20-40) % [place] % (Auto) 6.6 (2-11) % Eos % (Auto) 2.5 (0-4) % Baso % (Auto) 0.6 (0-2) % Lymph # (Auto) 1.2 (1.2-4.9) X10*3/uL [place] # (Auto) 0.8 (0.1-1.2) X10*3/uL Eos # (Auto) 0.3 (0.0-0.4) X10*3/uL Baso # (Auto) 0.1 (0.0-0.2) X10*3/uL Abs Immat Gran (auto) 0.06 H (0.00-0.03) X10*3/uL Absolute Neuts (auto) 10.0 H (2.0-8.3) x10*3/uL Absolute Nucleated RBC 0.000 (0.0-0.012) X10*3/uL Nucleated RBC % (auto) 0.0 (0.0-0.2) /100WBC PT 11.5 (10.0-13.1) SEC INR 1.0 (0.9-1.1) APTT 30.7 (26.0-36.4) SEC Sodium 137 (135-145) mmol/L Potassium 4.1 (3.3-5.1) mmol/L Chloride 104 (96-108) mmol/L Carbon Dioxide 22 (22-29) mmol/L Anion Gap 15 (12-20) BUN 30 H (9-16) mg/dL Creatinine 1.20 (0.5-1.4) mg/dL Estim Creat Clear Calc 32.4 Estimated GFR 44 Random Glucose 84 (60-115) mg/dL Calcium 8.8 D (8.4-10.2) mg/dL Magnesium 1.5 L (1.6-2.6) mg/dL Total Bilirubin 0.5 (0.0-1.0) mg/dL Direct Bilirubin 0.1 (0.0-0.5) mg/dL AST 21 (5-31) U/L ALT 25 (0-31) U/L Alkaline Phosphatase 101 (39-117) U/L Total Protein 5.7 L (6.5-8.0) g/dL Albumin 3.5 (3.5-5.0) g/dL <INEZ Krishnamurthy - Last Filed: 02/03/23 17:46> Lab Results 02/03/23 02/03/23 02/03/23 Range/Units 18:31 18:31 18:31 WBC 12.6 H (4.8-10.8) X10*3/uL RBC 3.82 L (4.20-5.50) X10*6/uL Hgb 11.5 L (12.0-16.0) g/dl Hct 34.7 L (37.0-47.0) % MCV 90.8 (80.0-98.0) fL MCH 30.1 (27.0-33.0) pg MCHC 33.1 (31.0-35.0) g/dl RDW 13.7 (11.0-16.0) % Plt Count 377 (160-400) X10*3/uL MPV 9.0 L (9.4-12.3) fL Immature Gran % (Auto) 0.5 H (0.0-0.4) % Neut % (Auto) 79.9 H (45-73) % Lymph % (Auto) 9.9 L (20-40) % [place] % (Auto) 6.6 (2-11) % Eos % (Auto) 2.5 (0-4) % Baso % (Auto) 0.6 (0-2) % Lymph # (Auto) 1.2 (1.2-4.9) X10*3/uL [place] # (Auto) 0.8 (0.1-1.2) X10*3/uL Eos # (Auto) 0.3 (0.0-0.4) X10*3/uL Baso # (Auto) 0.1 (0.0-0.2) X10*3/uL Abs Immat Gran (auto) 0.06 H (0.00-0.03) X10*3/uL Absolute Neuts (auto) 10.0 H (2.0-8.3) x10*3/uL Absolute Nucleated RBC 0.000 (0.0-0.012) X10*3/uL Nucleated RBC % (auto) 0.0 (0.0-0.2) /100WBC PT 11.5 (10.0-13.1) SEC INR 1.0 (0.9-1.1) APTT 30.7 (26.0-36.4) SEC Sodium 137 (135-145) mmol/L Potassium 4.1 (3.3-5.1) mmol/L Chloride 104 (96-108) mmol/L Carbon Dioxide 22 (22-29) mmol/L Anion Gap 15 (12-20) BUN 30 H (9-16) mg/dL Creatinine 1.20 (0.5-1.4) mg/dL Estim Creat Clear Calc 32.4 Estimated GFR 44 Random Glucose 84 (60-115) mg/dL Calcium 8.8 D (8.4-10.2) mg/dL Magnesium 1.5 L (1.6-2.6) mg/dL Total Bilirubin 0.5 (0.0-1.0) mg/dL Direct Bilirubin 0.1 (0.0-0.5) mg/dL AST 21 (5-31) U/L ALT 25 (0-31) U/L Alkaline Phosphatase 101 (39-117) U/L Total Protein 5.7 L (6.5-8.0) g/dL Albumin 3.5 (3.5-5.0) g/dL <Mesfin Aguilar MD - Last Filed: 02/03/23 20:40> Independent Interpretation I performed an independent interpretation of an: EKG (Atrial sensed ventricularly paced rhythm at heart rate of 88) and CT Scan (Head: Either mass effect versus encephalomalacia in the right temporal and frontal area) <Mesfin Aguilar MD - Last Filed: 02/03/23 20:40> Radiology Impression Discussion of test interpretation with radiology: I have reviewed the radiologist's reading. ( CT/CT head for stroke IMPRESSION: No evidence of acute intracranial hemorrhage or edematous territorial infarction. This result was discussed with at 02/03/2023 6:09 PM and it was ascertained that the content was understood at the time of direct communication. Dictat) <Mesfin Aguilar MD - Last Filed: 02/03/23 20:40> Radiologist Impression: Radiology interpretation of CTA of the head shows stable CT angiogram as compared to recent CTA. Scattered areas of atherosclerotic wall calcification in the cervical and intracranial carotid vasculature, otherwise stable. No high-grade stenosis or vessel occlusion visible. Mild to moderate stenosis in the P2 and P3 segments of the left posterior cerebral artery without change. Stable significant lower cervical spondylosis with reversal of the normal cervical lordosis and multilevel hypertrophic facet arthropathy. <Mesfin Aguilar MD - Last Filed: 02/03/23 20:40> External Record Review External record reviewed: Inpatient record (Cardiology consultation) <Mesfin Aguilar MD - Last Filed: 02/03/23 20:40> Tests considered The following testing was considered but not selected: MRI brain <Mesfin Aguilar MD - Last Filed: 02/03/23 20:40> Prescription Management I considered prescription management with: Other (Anticoagulation, thrombolytics) <MD Gurinder Kearns Last Filed: 02/03/23 20:40> Chronic Conditions Patient?s care impacted by: Diabetes and Hypertension <Mesfin Aguilar MD - Last Filed: 02/03/23 20:40> Critical Care Time Critical Care Time Critical Care Time: Yes <Mesfin Aguilar MD - Last Filed: 02/03/23 20:40> Total Critical Care Time: 45 <Mesfin Aguilar MD - Last Filed: 02/03/23 20:40> Attestation: 45 minutes of critical care time for the potential of a CVA/TIA workup. Critical care time the formal bedside assessment, conversation with family, reassessment, interpretation of medical data, consultation with Radiology, management of condition. <Mesfin Aguilar MD - Last Filed: 02/03/23 20:40> Discharge Plan Discharge Clinical Impression: Transient cerebral ischemia <INEZ Krishnamurthy - Last Filed: 02/03/23 17:46> Patient Disposition: Admitted As Inpatient <INEZ Krishnamurthy - Last Filed: 02/03/23 17:46> Prescriptions: No Action venlafaxine 37.5 mg capsule,extended release 24hr 37.5 mg PO Q OTHER DAY metoprolol succinate 50 mg tablet extended release 24 hr 50 mg PO DAILY lorazepam 0.5 mg tablet 0.5 mg PO BID simvastatin 20 mg tablet 20 mg PO BEDTIME metformin 1,000 mg tablet 1,000 mg PO BID <INEZ Krishnamurthy - Last Filed: 02/03/23 17:46>
--- NOTE | 2023-02-03 17:48 | ECG_ITS ---
Test Reason : STROKE ALERT Blood Pressure : / mmHG Vent. Rate : 088 BPM Atrial Rate : 088 BPM P-R Int : 162 ms QRS Dur : 198 ms QT Int : 484 ms P-R-T Axes : 073 -66 109 degrees QTc Int : 585 ms Atrial-sensed ventricular-paced rhythm Abnormal ECG When compared with ECG of 23-JAN-2023 19:28, Atrial-sensed ventricular-paced rhythm has replaced Normal sinus rhythm with second degree block and bifascicular block Referred By: Isela Maria Electronically Signed By:ISABEL COREAS MD
[2023-02-03] MEDS: iohexoL 350 MG/ML 100 ML INFUS..BTL IV (18:08)
[2023-02-03 18:42] LABS: MANUAL DIFF FLAG NO
[2023-02-03 18:45] LABS: Basophils Absolute Auto 0.1 X10*3/uL (0.0-0.2); Basophils Percent Auto 0.6 % (0-2); Eosinophils Absolute Auto 0.3 X10*3/uL (0.0-0.4); Eosinophils Percent Auto 2.5 % (0-4); Hematocrit 34.7 % (37.0-47.0); Hemoglobin 11.5 g/dl (12.0-16.0); Imm Gran Abs Auto 0.06 X10*3/uL (0.00-0.03); Imm Gran Pct Auto 0.5 % (0.0-0.4); Lymphocytes Absolute Auto 1.2 X10*3/uL (1.2-4.9); Lymphocytes Percent Auto 9.9 % (20-40); Mean Corpuscular HGB Conc 33.1 g/dl (31.0-35.0); Mean Corpuscular Hemoglobin 30.1 pg (27.0-33.0); Mean Corpuscular Volume 90.8 fL (80.0-98.0); Monocytes Absolute Auto 0.8 X10*3/uL (0.1-1.2); Monocytes Percent Auto 6.6 % (2-11); Neutrophils Percent Auto 79.9 % (45-73); Platelet Count 377 X10*3/uL (160-400); Red Blood Count 3.82 X10*6/uL (4.20-5.50); Red Cell Distribution Width 13.7 % (11.0-16.0); White Blood Count 12.6 X10*3/uL (4.8-10.8)
[2023-02-03 19:02] LABS: Prothrombin Time 11.5 SEC (10.0-13.1)
[2023-02-03 19:05] LABS: Partial Thromboplastin Time 30.7 SEC (26.0-36.4)
[2023-02-03 19:17] LABS: Alanine Aminotransferase 25 U/L (0-31); Albumin Level 3.5 g/dL (3.5-5.0); Alkaline Phosphatase 101 U/L (39-117); Anion Gap 15 (12-20); Aspartate Amino Transferase 21 U/L (5-31); Bilirubin Total 0.5 mg/dL (0.0-1.0); Blood Urea Nitrogen 30 mg/dL (9-16); Calcium 8.8 mg/dL (8.4-10.2); Carbon Dioxide 22 mmol/L (22-29); Chloride 104 mmol/L (96-108); Creatinine Clr Calc Pharmacy 32.4; Estimated Glomerular Filt Rate 44; Glucose Random 84 mg/dL (60-115); Magnesium 1.5 mg/dL (1.6-2.6); Potassium 4.1 mmol/L (3.3-5.1); Sodium 137 mmol/L (135-145); Total Protein 5.7 g/dL (6.5-8.0)
[2023-02-03 19:30] LABS: Bilirubin Direct 0.1 mg/dL (0.0-0.5)
--- NOTE | 2023-02-03 20:26 | PC.NURSE ---
At 1900 Received Report from RNBlanca about pts present condition, the reason for pt coming to the ED and what the care plan is in the ED.
--- NOTE | 2023-02-03 21:08 | PM.IMHP ---
History of Present Illness Date of Service: 02/03/23 Chief Complaint: loss of speech 72-year-old female with past medical history of hypertension, hyperlipidemia, diabetes, recently placed pacemaker placed on 01/24/2023 presents to the hospital with 8 minute episode of loss of speech. Patient reports that she had difficulty talking, and was mumbling for about 8 minutes, resolved by the time she reached the hospital. Reports the episode resolved by the time they came to the hospital, denies any facial droop, numbness or tingling, no weakness numbness or tingling in the arms or legs, denies any chest pain, no palpitations, no abdominal pain nausea or vomiting, no diarrhea constipation, no urinary symptoms and no lower extremity edema. Has been otherwise doing well no acute problems. On arrival to the ED patient hemodynamically stable slightly elevated blood pressure otherwise no significant abnormality labs are significant for WBC count of 12.6, hemoglobin of 11.5, hematocrit 34.7, labs otherwise unremarkable, Head CT as well as head and neck CT angiogram show stable CT angiograms compared to the recent prior CTA study, scattered areas of atherosclerotic wall calcification in the cervical and intracranial carotid vasculature, otherwise stable, no high-grade stenosis or vessel occlusion, patient will be admitted for further management Review of Systems Review of Systems: Yes all other systems are reviewed and are negative [facility] Medical History Depression Diabetes mellitus Hyperlipidemia Hypertension Pacemaker (~12/2022) Surgical History History of back surgery History of lumpectomy of right breast History of pacemaker History of right breast biopsy History of tubal ligation Social History Household Members: Spouse Housing: House Do you presently have visiting nurse or other home services: No Alcohol intake: never Patient Tobacco Use Status: Never used Tobacco e-Cigarette/Vaping Use: Never Used Second Hand Smoke Exposure: No Advance Directives: No Advance Directives Information Provided: No service: No Current occupational status: employed Meds Allergies Allergy/AdvReac Type Severity Reaction Status Date / Time No Known Allergies Allergy Verified 01/23/23 18:20 Home Medications Medication Instructions Recorded Confirmed Last Taken Type lorazepam 0.5 mg tablet 0.5 mg PO BEDTIME 01/23/23 02/03/23 02/02/23 History metformin 1,000 mg tablet 1,000 mg PO BID 01/23/23 02/03/23 02/03/23 History metoprolol succinate 50 mg 50 mg PO DAILY 01/23/23 02/03/23 02/03/23 History tablet,extended release 24 hr simvastatin 20 mg tablet 20 mg PO DAILY 01/23/23 02/03/23 02/03/23 History venlafaxine 37.5 mg 37.5 mg PO Q48H 01/23/23 02/03/23 02/01/23 21:00 History capsule,extended release 24 hr multivitamin 1 tab PO DAILY 02/03/23 02/03/23 02/03/23 History Physical Exam Vital Signs and Narrative: Vital Signs: Last Vital Signs Temp 96.6 F L 02/03/23 17:41 Pulse 95 02/03/23 17:41 Resp 17 02/03/23 17:41 BP 149/98 H 02/03/23 17:41 Pulse Ox 98 02/03/23 17:41 O2 Del Method Room Air 02/03/23 17:41 BMI result Body Mass Index 22.7 Const: General: cooperative and no acute distress Orientation/consciousness: patient oriented x3 Eyes: General: appearance normal, both eyes and all related structures Resp: Effort & Inspection: normal respiratory effort Auscultation: clear to auscultation bilaterally Cardio: Rate: regular rate Rhythm: regular rhythm GI: Palpation (GI): Soft to palpation Auscultation: normal bowel sounds Skin: General skin exam: no rashes or lesions noted Neuro: Other: cranial nerves 2-12 intact, strength 5/5 in all extremities, no speech deficit General: patient oriented x3 Cognition (Neuro): normal cognition Extrem: General: Yes normal to inspection and Yes no pedal edema Results Labs 02/03/23 18:31 02/03/23 18:31 Labs: Laboratory Results - last 24 hr 02/03/23 02/03/23 02/03/23 18:31 18:31 18:31 MCV 90.8 MCH 30.1 MCHC 33.1 RDW 13.7 Plt Count 377 MPV 9.0 L Immature Gran % (Auto) 0.5 H Neut % (Auto) 79.9 H Lymph % (Auto) 9.9 L Alpine % (Auto) 6.6 Eos % (Auto) 2.5 Baso % (Auto) 0.6 Lymph # (Auto) 1.2 Alpine # (Auto) 0.8 Eos # (Auto) 0.3 Baso # (Auto) 0.1 Abs Immat Gran (auto) 0.06 H Absolute Neuts (auto) 10.0 H Absolute Nucleated RBC 0.000 Nucleated RBC % (auto) 0.0 PT 11.5 INR 1.0 APTT 30.7 Anion Gap 15 Estim Creat Clear Calc 32.4 Estimated GFR 44 Random Glucose 84 Calcium 8.8 D Magnesium 1.5 L Total Bilirubin 0.5 Direct Bilirubin 0.1 AST 21 ALT 25 Alkaline Phosphatase 101 Total Protein 5.7 L Albumin 3.5 Imaging Radiologist's Impressions: Impressions Head CT 02/03/23 17:51 IMPRESSION: No evidence of acute intracranial hemorrhage or edematous territorial infarction. This result was discussed with at 02/03/2023 6:09 PM and it was ascertained that the content was understood at the time of direct communication. Head/Neck CTA 02/03/23 18:14 IMPRESSION: Stable CT angiogram as compared to the recent prior CTA study. Scattered areas of atherosclerotic wall calcification in the cervical and intracranial carotid vasculature, otherwise stable. No high-grade stenosis or vessel occlusion visible. [id number] stenosis in the P2 and P3 segments of the left posterior cerebral artery without change. Stable significant lower cervical spondylosis with a reversal of the normal cervical lordosis and multilevel hypertrophic facet arthropathy. Imaging findings reported to INEZ Saldaña at 7:24 PM on 02/03/2023. Assessment and Plan (1) Transient cerebral ischemia: Status: Acute (2) Aphasia: Status: Acute Plan 72-year-old female with past medical history of recently placed pacemaker, diabetes, hyperlipidemia, presents the hospital with aphasia # aphasia/possible TIA - lasting 8 minutes, resolving by the time she presented to the hospital - will admit for observation to telemetry - will obtain MRI if safe with pacemaker - neurology consulted # DM - LDSSI - DIabetic diet # HTN - Stable - monitor # Anxiety - continue ativan prn at bedtime DVT PPX: early ambulation Time Spent With Patient Time: Total time managing care of this patient today ____ minutes. Quality Stroke Does the patient have a stroke diagnosis?: No VTE Prior VTE?: No VTE Risk Level:: Medical - low VTE Device Contraindication: Treatment Not Indicated VTE Drug Contraindication: Treatment Not Indicated
--- NOTE | 2023-02-03 21:36 | PHA.MEDREC ---
Pharmacy Consult ? Medication Reconciliation Pharmacy has completed the medication reconciliation.Pt is good historian and able to confirm medications. She says her pcp has a plan to wean her from venlafaxine and start her on escitalopram but she has not started cross taper yet and is uncertain how it is supposed to work so she was planning on calling md to clarify that plan before starting it so her current venlafaxine regimen was entered as current home med.
[2023-02-03 21:48] LABS: MANUAL DIFF FLAG NO
[2023-02-03 21:49] LABS: Basophils Absolute Auto 0.1 X10*3/uL (0.0-0.2); Basophils Percent Auto 0.7 % (0-2); Eosinophils Absolute Auto 0.3 X10*3/uL (0.0-0.4); Hematocrit 36.7 % (37.0-47.0); Imm Gran Abs Auto 0.06 X10*3/uL (0.00-0.03); Imm Gran Pct Auto 0.4 % (0.0-0.4); Lymphocytes Absolute Auto 1.2 X10*3/uL (1.2-4.9); Lymphocytes Percent Auto 8.9 % (20-40); Mean Corpuscular HGB Conc 32.7 g/dl (31.0-35.0); Mean Corpuscular Hemoglobin 29.3 pg (27.0-33.0); Mean Corpuscular Volume 89.5 fL (80.0-98.0); Mean Platelet Volume 8.9 fL (9.4-12.3); Monocytes Absolute Auto 0.9 X10*3/uL (0.1-1.2); Monocytes Percent Auto 6.4 % (2-11); Neutrophils Absolute Auto 11.1 x10*3/uL (2.0-8.3); Neutrophils Percent Auto 81.6 % (45-73); Platelet Count 380 X10*3/uL (160-400); Red Cell Distribution Width 13.7 % (11.0-16.0); White Blood Count 13.7 X10*3/uL (4.8-10.8)
[2023-02-03 22:07] LABS: Anion Gap 16 (12-20); Blood Urea Nitrogen 28 mg/dL (9-16); Carbon Dioxide 22 mmol/L (22-29); Chloride 105 mmol/L (96-108); Creatinine Clr Calc Pharmacy 33.2; Estimated Glomerular Filt Rate 46; Glucose Random 108 mg/dL (60-115); Potassium 4.3 mmol/L (3.3-5.1); Sodium 139 mmol/L (135-145)
[2023-02-04] VITALS: BP 156/84; PULSE 86; RESP 18; TEMP 36.8; O2SAT 97
[2023-02-04 03:22] VITALS: BP 148/76; PULSE 84; RESP 18; TEMP 36.6; O2SAT 95
[2023-02-04 06:57] LABS: Cholesterol 185 mg/dL; HDL Cholesterol 48 mg/dL; LDL Cholesterol Calculated 100 mg/dl; Triglycerides 185 mg/dL
[2023-02-04 07:44] LABS: Glucose, Whole Blood 109 mg/dL (60-115)
[2023-02-04 07:52] LABS: Hematocrit 36.4 % (37.0-47.0); Mean Corpuscular Hemoglobin 29.8 pg (27.0-33.0); Mean Corpuscular Volume 90.3 fL (80.0-98.0); Mean Platelet Volume 9.5 fL (9.4-12.3); Platelet Count 401 X10*3/uL (160-400); Red Blood Count 4.03 X10*6/uL (4.20-5.50); Red Cell Distribution Width 13.8 % (11.0-16.0); White Blood Count 11.5 X10*3/uL (4.8-10.8)
[2023-02-04 08:00] VITALS: BP 127/70; PULSE 89; RESP 18; TEMP 36; O2SAT 97
[2023-02-04] MEDS: Aspirin Enteric Coated 81 MG TABLET.DR PO (08:20)
[2023-02-04] MEDS: Venlafaxine HCl ER 37.5 MG CAP.ER.24H PO (08:20)
[2023-02-04] MEDS: Pravastatin Sodium 40 MG TABLET PO (08:20)
[2023-02-04 11:39] LABS: Glucose, Whole Blood 157 mg/dL (60-115)
[2023-02-04 11:52] VITALS: BP 146/79; PULSE 94; RESP 18; TEMP 36; O2SAT 96
--- NOTE | 2023-02-04 12:15 | HO.PM.IMPN ---
Subjective Subjective Date of Service: 02/04/23 Interval History: seen and examined this morning follow up for episode of aphagia feeling back to normal at this time no weakness in extremities Review of Systems Review of Systems: Yes all other systems are reviewed and are negative Constitutional Constitutional: Denies chills and Denies fever(s) ENT Ears, Nose, Mouth, and Throat: Denies dizziness Cardiovascular Cardiovascular: Denies chest pain, Denies palpitations and Denies dyspnea Respiratory Respiratory: Denies cough and Denies dyspnea Gastrointestinal Gastrointestinal: Denies abdominal pain, Denies nausea and Denies vomiting Neurologic Neurologic: Denies dizziness Endocrine Endocrine: Denies palpitations Physical Exam Vital Signs: Vital Signs: Last Vital Signs Temp 96.8 F 02/04/23 11:52 Pulse 94 02/04/23 11:52 Resp 18 02/04/23 11:52 BP 146/79 H 02/04/23 11:52 Pulse Ox 96 02/04/23 11:52 O2 Del Method Room Air 02/04/23 11:52 O2 Flow Rate 3 02/04/23 03:22 BMI result Body Mass Index 22.7 Const: General: cooperative, comfortable, alert and awake Nutritional Appearance: average body habitus Orientation/consciousness: patient oriented x3 Eyes: Pupils: Equal, round and reactive pupils present Chest: Other: pacemaker site left anterior chest wall healing well no erythema or drainage Resp: Effort & Inspection: normal respiratory effort, able to speak in complete sentences, no respiratory distress and no use of accessory muscles Cardio: Rate: regular rate Heart sounds: S1 normal heart sound present and S2 normal heart sound present GI: Inspection: No distended Palpation (GI): Soft to palpation and nontender Neuro: General: patient oriented x3, moves all extremities and CN's II-XI intact bilaterally Cranial nerves: Yes Equal, round and reactive pupils present, Yes Nystagmus not present, Yes Normal facial strength present and Yes Midline tongue present Extrem: General: Yes no pedal edema Objective Data Active Medications Acetaminophen (Acetaminophen 325 Mg Tablet) 650 mg PO Q6H PRN PRN Reason: Pain, Mild (Pain Scale 1-3) Aspirin (Aspirin Enteric Coated 81 Mg Tablet.) 81 mg PO DAILY [facility] Last Admin: 02/04/23 08:20 Dose: 81 mg Documented By: WENDY Docusate Sodium (Docusate Sodium 100 Mg Capsule) 100 mg PO DAILY PRN PRN Reason: Constipation Glucose (Glucose Gel 15 Gm Gel..Gram.) 15 gm PO Q15M PRN; Protocol PRN Reason: per Hypoglycemia Standing Ord. Dextrose (D10) 250 mls @ 750 mls/hr IV Q15M PRN; Protocol PRN Reason: per Hypoglycemia Standing Ord. Insulin Human Lispro (Insulin Lispro 100 Unit/Ml 3 Ml Vial) 0 unit SUBCUT QIDACHS WILLOW; Protocol Lorazepam (Lorazepam 0.5 Mg Tablet) 0.5 mg PO BEDTIME WILLOW Ondansetron HCl (Ondansetron Hcl 4 Mg/2 Ml Vial) 4 mg IVPUSH Q8H PRN PRN Reason: Nausea and Vomiting Pharmacy Consult (Consult Rx Perform Med Rec) 1 each MISCELLANE ONCE PRN PRN Reason: Consult order Pravastatin Sodium (Pravastatin Sodium 40 Mg Tablet) 40 mg PO DAILY [facility] Last Admin: 02/04/23 08:20 Dose: 40 mg Documented By: WENDY Venlafaxine HCl (Venlafaxine Hcl Er 37.5 Mg Cap.Er.24h) 37.5 mg PO Q48H [facility] Last Admin: 02/04/23 08:20 Dose: 37.5 mg Documented By: WENDY Labs 02/04/23 06:17 02/03/23 21:44 Labs: Laboratory Results - last 24 hr 02/03/23 02/03/23 02/03/23 18:31 18:31 18:31 MCV 90.8 MCH 30.1 MCHC 33.1 RDW 13.7 Plt Count 377 MPV 9.0 L Immature Gran % (Auto) 0.5 H Neut % (Auto) 79.9 H Lymph % (Auto) 9.9 L Hand % (Auto) 6.6 Eos % (Auto) 2.5 Baso % (Auto) 0.6 Lymph # (Auto) 1.2 Hand # (Auto) 0.8 Eos # (Auto) 0.3 Baso # (Auto) 0.1 Abs Immat Gran (auto) 0.06 H Absolute Neuts (auto) 10.0 H Absolute Nucleated RBC 0.000 Nucleated RBC % (auto) 0.0 PT 11.5 INR 1.0 APTT 30.7 Anion Gap 15 Estim Creat Clear Calc 32.4 Estimated GFR 44 POC Glucose Random Glucose 84 Calcium 8.8 D Magnesium 1.5 L Total Bilirubin 0.5 Direct Bilirubin 0.1 AST 21 ALT 25 Alkaline Phosphatase 101 Total Protein 5.7 L Albumin 3.5 Triglycerides Cholesterol LDL Cholesterol, Calc HDL Cholesterol 02/03/23 02/03/23 02/04/23 21:44 21:44 06:17 MCV 89.5 MCH 29.3 MCHC 32.7 RDW 13.7 Plt Count 380 MPV 8.9 L Immature Gran % (Auto) 0.4 Neut % (Auto) 81.6 H Lymph % (Auto) 8.9 L Hand % (Auto) 6.4 Eos % (Auto) 2.0 Baso % (Auto) 0.7 Lymph # (Auto) 1.2 Hand # (Auto) 0.9 Eos # (Auto) 0.3 Baso # (Auto) 0.1 Abs Immat Gran (auto) 0.06 H Absolute Neuts (auto) 11.1 H Absolute Nucleated RBC 0.000 Nucleated RBC % (auto) 0.0 PT INR APTT Anion Gap 16 Estim Creat Clear Calc 33.2 Estimated GFR 46 POC Glucose Random Glucose 108 Calcium 9.0 Magnesium Total Bilirubin Direct Bilirubin AST ALT Alkaline Phosphatase Total Protein Albumin Triglycerides 185 Cholesterol 185 LDL Cholesterol, Calc 100 HDL Cholesterol 48 02/04/23 02/04/23 02/04/23 06:17 07:31 11:31 MCV 90.3 MCH 29.8 MCHC 33.0 RDW 13.8 Plt Count 401 H MPV 9.5 Immature Gran % (Auto) Neut % (Auto) Lymph % (Auto) Hand % (Auto) Eos % (Auto) Baso % (Auto) Lymph # (Auto) Hand # (Auto) Eos # (Auto) Baso # (Auto) Abs Immat Gran (auto) Absolute Neuts (auto) Absolute Nucleated RBC 0.000 Nucleated RBC % (auto) 0.0 PT INR APTT Anion Gap Estim Creat Clear Calc Estimated GFR POC Glucose 109 157 H Random Glucose Calcium Magnesium Total Bilirubin Direct Bilirubin AST ALT Alkaline Phosphatase Total Protein Albumin Triglycerides Cholesterol LDL Cholesterol, Calc HDL Cholesterol Assessment and Plan (1) Aphasia: Status: Acute Plan 72-year-old female with past medical history of recently placed pacemaker, diabetes, hyperlipidemia, presents the hospital with aphasia aphasia possible TIA brain CT negative CTA no high grade stenosis or occlusion symptoms resolved has PM - unable to have MRI until Monday when rep available neurology consult pending LDL 100 continue asa,statin DM SSI, POCs, ADA diet HTN Stable Anxiety continue home meds DVT PPX: early ambulation attending - dr. roque Time Spent With Patient Time: Total time managing care of this patient today ____ minutes. Quality Stroke Does the patient have a stroke diagnosis?: No VTE Prior VTE?: No VTE Risk Level:: Medical - low VTE Device Contraindication: Treatment Not Indicated VTE Drug Contraindication: Treatment Not Indicated
[2023-02-04] MEDS: Magnesium Sulfate/H2O 2 GM/50 ML PIGGYBACK IV (12:39)
[2023-02-04 13:14] LABS: Appearance Urine Clear; Color Urine Yellow; Glucose Urine UA Negative (Negative); Leukocyte Esterase Urine Moderate (2+) (Negative); Nitrite Urine Negative (Negative); PH 5.5 (5.0-9.0); UMIC TRIGGER UACC YES; Urine Blood Negative (Negative); Urine Ketones Negative (Negative); Urine Protein 100 (2+) mg/dL (Neg-Trace)
[2023-02-04 13:19] LABS: Bacteria Urine None Seen (None Seen); Hyaline Casts Urine 0-2 /LPF (0-2); RBC Urine 0-2 /HPF (0-2); Squamous Epithelial Cell Urine 0-2 /HPF (0-2); UACC Culture Trigger YES
[2023-02-04 15:40] VITALS: BP 162/70; PULSE 98; RESP 20; TEMP 36.7; O2SAT 96
--- NOTE | 2023-02-04 16:07 | MHC.CM.PN ---
Addendum entered by Janet Mclain RN 02/05/23 12:01: PT OBS NOT INPT, SANCHES DELIVERED TO BEDSIDE Original Note: IMM 02/04/23, EMR REVIWED, PT ADMITTED W/TIA, PT REPORTS MRI PENDING AND WAS TOLD SHE WILL NOT GET IT UNTIL MONDAY, PT WOULD LIKE TO D/C SOON POSSIBLE AND IS HOPING TO HAVE MRI SOONER IF POSSIBLE. 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 PT VERIFIES PCP IS DOLORES MCGRAW, HANGID VACCX2 AND [place]ENT[place] IS HCP [phone].
[2023-02-04 16:24] LABS: Glucose, Whole Blood 120 mg/dL (60-115)
[2023-02-04 19:14] VITALS: BP 162/70; PULSE 121; RESP 20; TEMP 36.7; O2SAT 92
[2023-02-04 20:57] LABS: Glucose, Whole Blood 164 mg/dL (60-115)
[2023-02-04] MEDS: Insulin Lispro 100 UNIT/ML 3 ML VIAL SUBCUT (22:19)
[2023-02-04] MEDS: LORazepam 0.5 MG TABLET PO (22:19)
[2023-02-05] VITALS: BP 157/93; PULSE 109; RESP 20; TEMP 36.6; O2SAT 95
[2023-02-05 04:00] VITALS: BP 155/81; PULSE 104; RESP 20; TEMP 36.7; O2SAT 97
[2023-02-05 07:28] VITALS: BP 144/74; PULSE 107; RESP 16; TEMP 36.2; O2SAT 98
[2023-02-05 07:44] LABS: Glucose, Whole Blood 124 mg/dL (60-115)
[2023-02-05] MEDS: Metoprolol Succinate ER 50 MG TAB.ER.24H PO (08:45)
[2023-02-05] MEDS: Pravastatin Sodium 40 MG TABLET PO (08:45)
[2023-02-05] MEDS: Aspirin Enteric Coated 81 MG TABLET.DR PO (08:45)
--- NOTE | 2023-02-05 10:39 | P.CNNE_ITS ---
History of Present Illness Data of Consult Service Date: 02/05/23 Primary Care Provider: Unknown Physician HPI Reason for consult: Difficulty speaking 72 years old woman with uncontrolled hypertension had 2 episodes of difficulty speaking. The 1st episode happened few days ago lasted few minutes after which she came to hospital and was given a cardiac pacemaker. She went home and few days later she had another episode. Both episodes was similar, happened suddenly, without any trigger, and resulted in difficulty speaking for few minutes. During that she was alert and awake not confused not having any head ache or pain. Words were not coming out right like there were jumbled. She was comprehending. There was no focal weakness or unsteadiness or dizziness. Review of Systems Review of Systems: No recent cold or flu-like illness PMFSH Past Medical History Medical History Depression Diabetes mellitus Hyperlipidemia Hypertension Pacemaker (~12/2022) Surgical History Surgical History History of back surgery History of lumpectomy of right breast History of pacemaker History of right breast biopsy History of tubal ligation Social History Social History Household Members: Spouse Housing: House Do you presently have visiting nurse or other home services: No Alcohol intake: never Patient Tobacco Use Status: Never used Tobacco e-Cigarette/Vaping Use: Never Used Second Hand Smoke Exposure: No Advance Directives: No Advance Directives Information Provided: No service: No Current occupational status: employed Meds Allergies Allergy/AdvReac Type Severity Reaction Status Date / Time No Known Allergies Allergy Verified 01/23/23 18:20 Active Medications: Current Medications Acetaminophen (Acetaminophen 325 Mg Tablet) 650 mg PO Q6H PRN PRN Reason: Pain, Mild (Pain Scale 1-3) Aspirin (Aspirin Enteric Coated 81 Mg Tablet.) 81 mg PO DAILY WILLOW Last Admin: 02/05/23 08:45 Dose: 81 mg Docusate Sodium (Docusate Sodium 100 Mg Capsule) 100 mg PO DAILY PRN PRN Reason: Constipation Glucose (Glucose Gel 15 Gm Gel..Gram.) 15 gm PO Q15M PRN; Protocol PRN Reason: per Hypoglycemia Standing Ord. Dextrose (D10) 250 mls @ 750 mls/hr IV Q15M PRN; Protocol PRN Reason: per Hypoglycemia Standing Ord. Insulin Human Lispro (Insulin Lispro 100 Unit/Ml 3 Ml Vial) 0 unit SUBCUT QIDACHS [facility]; Protocol Last Admin: 02/05/23 07:48 Dose: Not Given Lorazepam (Lorazepam 0.5 Mg Tablet) 0.5 mg PO BEDTIME [facility] Last Admin: 02/04/23 22:19 Dose: 0.5 mg Metoprolol Succinate (Metoprolol Succinate Er 50 Mg Tab.Er.24h) 50 mg PO DAILY [facility]; Protocol Last Admin: 02/05/23 08:45 Dose: 50 mg Ondansetron HCl (Ondansetron Hcl 4 Mg/2 Ml Vial) 4 mg IVPUSH Q8H PRN PRN Reason: Nausea and Vomiting Pharmacy Consult (Consult Rx Perform Med Rec) 1 each MISCELLANE ONCE PRN PRN Reason: Consult order Pravastatin Sodium (Pravastatin Sodium 40 Mg Tablet) 40 mg PO DAILY [facility] Last Admin: 02/05/23 08:45 Dose: 40 mg Venlafaxine HCl (Venlafaxine Hcl Er 37.5 Mg Cap.Er.24h) 37.5 mg PO Q48H [facility] Last Admin: 02/04/23 08:20 Dose: 37.5 mg Home Medications Medication Instructions Recorded Confirmed Last Taken Type lorazepam 0.5 mg tablet 0.5 mg PO BEDTIME 01/23/23 02/03/23 02/02/23 History metformin 1,000 mg tablet 1,000 mg PO BID 01/23/23 02/03/23 02/03/23 History metoprolol succinate 50 mg 50 mg PO DAILY 01/23/23 02/03/23 02/03/23 History tablet,extended release 24 hr simvastatin 20 mg tablet 20 mg PO DAILY 01/23/23 02/03/23 02/03/23 History venlafaxine 37.5 mg 37.5 mg PO Q48H 01/23/23 02/03/23 02/01/23 21:00 History capsule,extended release 24 hr multivitamin 1 tab PO DAILY 02/03/23 02/03/23 02/03/23 History Physical Exam Vital Signs: Vital Signs: Last Vital Signs Temp 97.1 F 02/05/23 07:28 Pulse 107 H 02/05/23 07:28 Resp 16 02/05/23 07:28 BP 144/74 H 02/05/23 07:28 Pulse Ox 98 02/05/23 07:28 O2 Del Method Room Air 02/05/23 07:28 O2 Flow Rate 3 02/04/23 03:22 BMI result Body Mass Index 22.7 Neuro: Other: She is alert and awake with normal spontaneity of speech fluency comprehension and affect. Face is symmetrical. Visual arnold are full. There is no pronator drift. Spbsel-im-levv testing revealed mild ataxia bilaterally. Deep tendon reflexes are trace with flexor plantars. Results Labs 02/04/23 06:17 02/03/23 21:44 Labs: Urine 02/04/23 Range/Units 13:05 Urine Color Yellow Urine Appearance Clear Urine pH 5.5 (5.0-9.0) Ur Specific [place] 1.020 (1.005-1.025) Urine Protein 100 (2+) H (Neg-Trace) mg/dL Urine Glucose (UA) Negative (Negative) mg/dL CT and CTA of brain and neck were reviewed. No acute finding was noted. No significant anterior circulation stenosis was noted. Some stenosis was noted and posterior cerebral arteries. Large area of encephalomalacia and right post erior frontal area was noted suggestive of chronic infarction. Microbiology Microbiology Results: Microbiology 02/04/23 12:42 Urine clean catch - Urine [place] top Urine Culture - Final Strep agalactiae (Grp B) Assessment and Plan (1) Aphasia: Status: Acute 72 years old woman with 2 similar episodes lasting for few minutes resulting in difficulty speaking with intact comprehension and no confusion. This type of symptomatology is typically suggestive of transient ischemic type of pathology. Seizure disorder is a possibility but that typically resulted in confusion. Her blood pressure was quite uncontrolled, which suggested significant risk for vascular disease. She might have atherosclerotic small to medium vessel atherosclerotic disease resulting in repeated episodes. Mainstay of management for this condition is blood pressure control, anti-platelet agent and statin. F or now I would suggest dual anti-platelet therapy with aspirin and Plavix at least for few months. She should be educated about high blood pressure and its risks. As far as large encephalomalacia and right hemisphere is concerned, it likely is chronic and might be congenital or in origin. She might have suffered a stroke before around . Time Spent With Patient Time: Total time managing care of this patient today ____ minutes. Procedures Date of Service Date of Service: 02/05/23
[2023-02-05 11:39] VITALS: BP 152/87; PULSE 96; RESP 18; TEMP 36.4; O2SAT 96
--- NOTE | 2023-02-05 12:00 | PM.DS ---
DS: Providers Provider Date of Service: 02/05/23 Date of admission: 02/03/23 21:08 Date of discharge: 02/05/23 Primary care physician: Unknown Physician Consults: 02/03/23 21:06 Consult to Neurology Routine Consulting Provider: [facility] Reason for consultation: aphasia Has provider been notified: No Attending physician on discharge: Khadar Tovar Discharging clinician: Oriana Sam DS: Diagnosis Discharge Diagnosis (1) Aphasia: Status: Acute (2) Transient cerebral ischemia: Status: Acute DS: Summary Hospital Course Hospital Course: From H&P on day of admission ?72-year-old female with past medical history of hypertension, hyperlipidemia, diabetes, recently placed pacemaker placed on 01/24/2023 presents to the hospital with 8 minute episode of loss of speech.? Patient reports that she had difficulty talking, and was mumbling for about 8 minutes, resolved by the time she reached? the hospital.? Reports? the episode resolved by the time they came to the hospital, denies any facial droop, numbness or tingling, no weakness numbness or tingling in the arms or legs, denies any chest pain, no palpitations, no abdominal pain nausea or vomiting, no diarrhea constipation, no urinary symptoms and no lower extremity edema.? Has been otherwise doing well no acute problems. ? On arrival to the ED patient hemodynamically stable slightly elevated blood pressure otherwise no significant abnormality ?labs are significant for WBC count of 12.6, hemoglobin of 11.5, hematocrit 34.7, labs otherwise unremarkable, Head CT as well as head and neck CT angiogram show stable CT angiograms compared to the recent prior CTA study, scattered areas of atherosclerotic wall calcification in the cervical and intracranial carotid vasculature, otherwise stable, no high-grade stenosis or vessel occlusion, ?patient will be admitted for further management aphasia-probable TIA. brain CT negative for acute stroke. CTA with no high grade stenosis or occlusion, mild to moderate stenosis in the posterior cerebral artery. No persistent symptoms. LDL 100. Seen by neurology, given 2 similar episodes lasting for few minutes resulting in difficulty speaking with intact comprehension and no confusion suggestive of transient ischemic type of pathology.? Seizure disorder is a possibility but that typically results in confusion.? ? She might have atherosclerotic small to medium vessel atherosclerotic disease resulting in repeated episodes.? Mainstay of management is blood pressure control, anti-platelet agent and statin.? Rec dual anti-platelet therapy with aspirin and Plavix at least for few months. Also noted to have encephalomalacia on imaging, it likely is chronic and might be congenital or in origin.? She might have suffered a stroke before or around . recommend close blood pressure monitoring and follow up with PCP Time Spent with Patient Time attestation: Total time managing care of this patient today ____ minutes. Discharge coordination time: Greater than 30 minutes Quality: Safe Use of Opioids Does Pt have an Active Cancer Diagnosis on the Problem List?: No Quality: Stroke Does the patient have a stroke diagnosis?: No Physical Exam Vital Signs: Vital Signs: Last Vital Signs Temp 97.5 F 02/05/23 11:39 Pulse 96 02/05/23 11:39 Resp 18 02/05/23 11:39 BP 152/87 H 02/05/23 11:39 Pulse Ox 96 02/05/23 11:39 O2 Del Method Room Air 02/05/23 11:39 O2 Flow Rate 3 02/04/23 03:22 BMI result Body Mass Index 22.7 Const: General: cooperative, comfortable, alert and awake Nutritional Appearance: average body habitus Orientation/consciousness: patient oriented x3 Eyes: Pupils: Equal, round and reactive pupils present Chest: Other: pacemaker site left anterior chest wall healing well no erythema or drainage Resp: Effort & Inspection: normal respiratory effort, able to speak in complete sentences, no respiratory distress and no use of accessory muscles Cardio: Rate: regular rate Heart sounds: S1 normal heart sound present and S2 normal heart sound present GI: Inspection: No distended Palpation (GI): Soft to palpation and nontender Neuro: General: patient oriented x3, moves all extremities and CN's II-XI intact bilaterally Cranial nerves: Yes Equal, round and reactive pupils present, Yes Nystagmus not present, Yes Normal facial strength present and Yes Midline tongue present Extrem: General: Yes no pedal edema DS: Data Data Completed and Pending Completed studies during hospitalization [Text1]: Procedures Insertion of Pacemaker Lead into Right Atrium, Percutaneous Approach (01/23/23) Insertion of Pacemaker Lead into Right Ventricle, Percutaneous Approach (01/23/23) Insertion of Pacemaker, Dual Chamber into Chest Subcutaneous Tissue and Fascia, Open Approach (01/23/23) Labs on day of discharge: Laboratory Results - last 24 hr 02/04/23 02/04/23 02/04/23 13:05 16:21 20:50 POC Glucose 120 H 164 H Urine Color Yellow Urine Appearance Clear Urine pH 5.5 Ur Specific [place] 1.020 Urine Protein 100 (2+) H Urine Glucose (UA) Negative Urine Ketones Negative Urine Blood Negative Urine Nitrite Negative Ur Leukocyte Esterase Moderate (2+) H Urine RBC 0-2 Urine WBC 6-10 H Ur Squamous Epith Cells 0-2 Urine Bacteria None Seen Hyaline Casts 0-2 02/05/23 07:30 POC Glucose 124 H Urine Color Urine Appearance Urine pH Ur Specific [place] Urine Protein Urine Glucose (UA) Urine Ketones Urine Blood Urine Nitrite Ur Leukocyte Esterase Urine RBC Urine WBC Ur Squamous Epith Cells Urine Bacteria Hyaline Casts Discharge Plan Discharge Anticipated Discharge Date/Time: 02/05/23 11:54 Patient Disposition: Home Health Service Referrals: [facility] [Outside] - 1 Day ([facility] of [facility] and Home PT) Physician,Unknown J [Primary Care Provider] - 1 Week Discharge Medications: New aspirin 81 mg Tablet,Delayed Release (Dr/Ec) 81 mg PO DAILY 30 Days Qty: 30 0RF clopidogrel [Plavix] 75 mg tablet 75 mg PO DAILY 30 Days Qty: 30 0RF atorvastatin 40 mg tablet 40 mg PO BEDTIME 30 Days Qty: 30 0RF Continued venlafaxine 37.5 mg capsule,extended release 24hr 37.5 mg PO Q48H metoprolol succinate 50 mg tablet extended release 24 hr 50 mg PO DAILY lorazepam 0.5 mg tablet 0.5 mg PO BEDTIME metformin 1,000 mg tablet 1,000 mg PO BID multivitamin Tablet 1 tab PO DAILY Discontinued simvastatin 20 mg tablet 20 mg PO DAILY Discharge Orders: Discharge Order (Routine); Ordered 02/05/23 Ordered By: Oriana Sam Activity on Discharge: As tolerated Stand Alone Forms: Patient Portal Discharge page Care Plan Goals: reduce risk for stroke Health Concerns: TIA mini stroke high blood pressure Plan of Treatment: start taking aspirin and plavix daily as prescribed stop taking simvastatin and start taking atorvastatin monitor blood pressure closely. recommend daily blood pressure monitor and keep blood pressure log call to schedule follow up appointment with PCP for close monitoring of blood pressure Assessment: see discharge summary
--- NOTE | 2023-02-05 12:01 | MHC.CM.PN ---
PT MEDICALLY CLEARED TO D/C HOME W/RESUMP OF [facility] FOR SN/HOME PT, PT'S WILL TRANSPORT
== END 2023-02-05 13:25 | disposition home health service (06) ==
LOC: HO.ED 20:40 → HO.EDOVER 21:12 → HO.IMC 21:42
PROVIDERS: Physician Assistant; Admitting Provider Internal Medicine; Emergency Provider Emergency Medicine; PCP Internal Medicine; Visit Provider Physician Assistant Medical
DX: G45.9 Transient cerebral ischemic attack, unspecified (principal); R47.01 Aphasia; E11.9 Type 2 diabetes mellitus without complications; I10 Essential (primary) hypertension; E78.00 Pure hypercholesterolemia, unspecified; Z95.0 Presence of cardiac pacemaker; Z79.899 Other long term (current) drug therapy; Z79.84 Long term (current) use of oral hypoglycemic drugs; Z79.02 Long term (current) use of antithrombotics/antiplatelets; Z79.82 Long term (current) use of aspirin
CPT/HCPCS: 36415; 70450; 70496; 70498; 80048; 80061; 80076; 81001; 82947; 83735; 85025; 85027; 85610; 85730; 87086; 87147; 93005; 96365; 96366; 99222; 99285; J3475; Q9967

== ENCOUNTER → 2023-02-10 10:57 | Outpatient (BNVA) | payer MEDICARE, SELFPAY | PROVIDERS: PCP Internal Medicine; Visit Provider Surgery | DX: Z95.0 Presence of cardiac pacemaker (principal) ==

== ENCOUNTER → 2023-03-06 13:12 | Outpatient (BNVA) | payer MEDICARE, SELFPAY | PROVIDERS: PCP Internal Medicine; Visit Provider Internal Medicine Cardiovascular Disease ==

== ENCOUNTER → 2023-03-08 15:00 | Outpatient (BNVA) | payer MEDICARE, SELFPAY | PROVIDERS: PCP Internal Medicine; Referring Provider Internal Medicine; Visit Provider Internal Medicine Cardiovascular Disease | DX: Z45.018 Encounter for adjustment and management of other part of cardiac pacemaker (principal); I10 Essential (primary) hypertension; Z79.02 Long term (current) use of antithrombotics/antiplatelets; Z79.82 Long term (current) use of aspirin | CPT/HCPCS: 99212 ==

== ENCOUNTER → 2023-05-01 23:59 | Outpatient (BNV) | payer MEDICARE, SELFPAY ==
--- NOTE | 2023-05-15 09:36 | A.OFFVIS_ITS ---
Intake Intake Visit Reasons: Remote Device Check-[facility] Allergies No Known Allergies Allergy (Verified 03/08/23 15:16) [facility] Medical History Depression Diabetes mellitus Hyperlipidemia Hypertension Pacemaker (~12/2022) Surgical History History of back surgery History of lumpectomy of right breast History of pacemaker History of right breast biopsy History of tubal ligation Social History Household Members: Spouse Housing: House Do you presently have visiting nurse or other home services: No Alcohol intake: never Patient Tobacco Use Status: Never used Tobacco e-Cigarette/Vaping Use: Never Used Second Hand Smoke Exposure: No service: No Current occupational status: employed Office Procedures Cardiac Device Check Cardiac Device Check Details: [employer]. Permanent pacemaker. Battery life more than 5 years. DDD mode. A paced less than 1%. V paced more than 99%. No new alerts. [id number] Cardiac Device Interrogation, pacemaker Procedure code (CPT) selection complete Assessment & Plan Assessment & Plan (1) Pacemaker: Onset Date: ~12/2022 Comment: ([facility] DCPP - placed 01/24/23 for complete heart block) Code(s): Z95.0 - Presence of cardiac pacemaker Coding Level of Care Code Procedure Only Diagnoses Pacemaker Z95.0 CPT Codes Cardiac Device Check - Cardiac Device 12: [id number] Cardiac Device Interrogation, pacemaker ([id number])
== END ==
PROVIDERS: PCP Internal Medicine; Visit Provider Internal Medicine Cardiovascular Disease
DX: I44.2 Atrioventricular block, complete (principal); Z95.0 Presence of cardiac pacemaker
CPT/HCPCS: 93294

== ENCOUNTER 2023-07-19 14:03 | Outpatient (AMB) | payer MEDICARE, SELFPAY ==
[2023-07-19 14:12] VITALS: BP 120/74; PULSE 78; BMI 23.3
--- NOTE | 2023-07-19 14:12 | A.OFFVIS_ITS ---
Intake Vital Signs 07/19/23 14:12 Height 5 ft 1 in Weight 123 lb 7.342 oz BMI 23.3 BP 120/74 Blood Pressure Location Lt brachial Position Sitting Pulse 78 Intake Visit Reasons: 4 mth f/up Intake Note: 4 month follow-up feeling good Government Relations Analyst Required: No Allergies No Known Allergies Allergy (Verified 03/08/23 15:16) Medication List - Last Reconciled 07/19/23 by Francis Anand MD aspirin 81 mg PO DAILY 30 days atorvastatin 40 mg PO BEDTIME 30 days clopidogrel (Plavix) 75 mg PO DAILY 30 days escitalopram oxalate 10 mg PO DAILY lorazepam 0.5 mg PO BEDTIME metformin 1,000 mg PO BID metoprolol succinate ER 50 mg PO DAILY multivitamin 1 tab PO DAILY HPI HPI Comments History of Present Illness Details Pleasant 72 year female who is here for follow-up. She was seen in the hospital when she presented with complete heart block in significant hypertension with word-finding difficulties. She was in the intensive care unit on Cardene infusion and with blood pressure control her symptoms improved. She subsequently had dual-chamber pacemaker placed and was discharged home. It appears she got admitted again with similar symptoms and was seen by Neurology. It was felt that she has small-vessel atherosclerotic disease and maybe that is the reason she had these symptoms. These were labeled as TIA. She was on aspirin and Plavix previously and same medications were continued. She returns for follow-up today and had a pacemaker interrogation which was normal. She is denying any chest pain or shortness of breath. She has not had any further neurological symptoms since 02/05/2023. 07/19/23: She is here for follow-up. S he has been doing well. Occasionally she gets lightheadedness when she gets out of bed quickly. Denies any other complaints otherwise. Blood pressure control is good. [facility] Medical History (Updated 07/19/23 @ 14:35 by Francis Anand MD) Pacemaker (~12/2022) Depression Diabetes mellitus Hyperlipidemia Hypertension Surgical History History of pacemaker History of lumpectomy of right breast History of right breast biopsy History of back surgery History of tubal ligation Social History Household Members: Spouse Housing: House Do you presently have visiting nurse or other home services: No Alcohol intake: never Patient Tobacco Use Status: Never used Tobacco e-Cigarette/Vaping Use: Never Used Second Hand Smoke Exposure: No service: No Current occupational status: employed Review of Systems Const Denies chills, Denies fatigue, Denies fever(s), Denies frequent falls, Denies weakness, Denies weight gain and Denies weight loss ENT Denies dizziness Card Denies chest pain, Denies leg edema, Denies lightheadedness, Denies palpitations, Denies dyspnea, Denies dyspnea on exertion, Denies orthopnea and Denies other (loss of consciousness) Resp Denies cough, Denies dyspnea and Denies dyspnea on exertion GI Denies hematochezia and Denies change in stool character Musc Denies abnormal gait, Denies muscle weakness, Denies numbness, Denies radiating pain into limb and Denies tingling Neuro Denies abnormal gait, Denies dizziness, Denies frequent falls, Denies numbness, Denies tingling and Denies weakness Endo Denies fatigue and Denies palpitations Physical Exam Vital Signs: Last Vital Signs Pulse 78 07/19/23 14:12 BP 120/74 07/19/23 14:12 BMI result Body Mass Index 23.3 GENERAL APPEARANCE: in no acute distress, pleasant. NECK: no carotid bruit, no jugular venous distention. SKIN: no suspicious lesions, warm and dry. HEART: no murmurs, regular rate and rhythm. LUNGS: clear to auscultation bilaterally. ABDOMEN: soft, nontender. EXTREMITIES: no edema. PERIPHERAL PULSES: equal. NEUROLOGIC: No gross deficits, AAO X 3 Assessment & Plan Assessment & Plan (1) Hypertension: Code(s): I10 - Essential (primary) hypertension Plan Pleasant 72-year-old female who is here for follow-up. Blood pressure control is good. She is complaining of some lightheadedness when she quickly gets out of bed. I have advised her to sit at the edge of the bed with legs down for approximately 1-2 minutes before she gets out of bed. Overall stable. She will follow-up with us in 6 months. Thank you for allowing me to participate in the care of your patient. Please feel free to contact me if you have any questions. Coding Level of Care Code Est Pt Level 3 (23457) Diagnoses Hypertension I10
== END 2023-07-19 14:36 | disposition home or self-care (01) ==
PROVIDERS: PCP Internal Medicine; Visit Provider Internal Medicine Cardiovascular Disease
DX: I10 Essential (primary) hypertension (principal)
CPT/HCPCS: 99213

== ENCOUNTER → 2023-07-19 14:03 | Outpatient (BNVA) | payer MEDICARE, SELFPAY | PROVIDERS: PCP Internal Medicine; Visit Provider Internal Medicine Cardiovascular Disease | DX: I10 Essential (primary) hypertension (principal) | CPT/HCPCS: 99212 ==

== ENCOUNTER → 2023-07-31 23:59 | Outpatient (BNV) | payer MEDICARE, SELFPAY ==
--- NOTE | 2023-08-03 11:50 | A.OFFVIS_ITS ---
Intake Intake Visit Reasons: Remote Device Check- [facility] Allergies No Known Allergies Allergy (Verified 03/08/23 15:16) [facility] Medical History (Updated 07/19/23 @ 14:35 by Farncis Anand MD) Pacemaker (~12/2022) Depression Diabetes mellitus Hyperlipidemia Hypertension Surgical History History of pacemaker History of lumpectomy of right breast History of right breast biopsy History of back surgery History of tubal ligation Social History Household Members: Spouse Housing: House Do you presently have visiting nurse or other home services: No Alcohol intake: never Patient Tobacco Use Status: Never used Tobacco e-Cigarette/Vaping Use: Never Used Second Hand Smoke Exposure: No service: No Current occupational status: employed Office Procedures Cardiac Device Check Cardiac Device Check Details: PPM Battery life > 5 years. 1 episode of 13 beats NSVT 05/12/23. [id number] Cardiac Device Interrogation, pacemaker Procedure code (CPT) selection complete Assessment & Plan Assessment & Plan (1) Pacemaker: Onset Date: ~12/2022 Comment: ([facility] DCPP - placed 01/24/23 for complete heart block) Code(s): Z95.0 - Presence of cardiac pacemaker Orders: Orders AMB Cardiac Device Follow-up 07/31/23 Z95.0 - Presence of cardiac pacemaker Coding Level of Care Code Procedure Only Diagnoses Pacemaker Z95.0 CPT Codes Cardiac Device Check - Cardiac Device 12: [id number] Cardiac Device Interroga tion, pacemaker ([id number])
== END ==
PROVIDERS: PCP Internal Medicine; Visit Provider Internal Medicine Cardiovascular Disease
DX: I44.2 Atrioventricular block, complete (principal); Z95.0 Presence of cardiac pacemaker
CPT/HCPCS: 93294

== ENCOUNTER 2023-08-11 19:29 | Emergency (ER) | payer MEDICARE, SELFPAY ==
--- NOTE | ~2023-08-11 | XR_ITS ---
EXAMINATION: XR CHEST CLINICAL INFORMATION: Fall. Trauma. COMPARISON: Previous chest x-ray December 2022 TECHNIQUE: Frontal view of the chest was obtained. FINDINGS: The cardiac silhouette is enlarged but stable. There is a left subclavian dual chamber pacemaker that appears unchanged. Hilar and mediastinal contours are unremarkable. The lungs are clear. No pleural effusion or pneumothorax. Surgical clips over the right chest wall. Degenerative changes of the spine and mild scoliosis. XR/XR chest 1V IMPRESSION: Stable enlargement of the cardiac silhouette. No evidence for acute disease in the chest.
--- NOTE | ~2023-08-11 | CT_ITS ---
EXAMINATION: CT HEAD WITHOUT CONTRAST CT CERVICAL SPINE WITHOUT CONTRAST CLINICAL INFORMATION: Fall, injury. COMPARISON: CTA head and neck 01/23/2023. TECHNIQUE: Contiguous axial imaging was performed from the skull base to vertex without intravenous administration of contrast. Contiguous axial imaging was performed from the upper chest through the skull base without intravenous administration of contrast. Coronal and sagittal reformats were obtained at the acquisition workstation. This CT examination was performed using dose optimization techniques as appropriate, variously including the following: *Automated exposure control *Adjustment of mA and/or kV according to patient size (this includes techniques or standardized protocols for targeted exams where dose is matched to indication/reason for exam; i.e. extremities or head) *Use of iterative reconstruction technique DLP: 576 and 241 mGy-cm FINDINGS: Head: Subdural blood products measuring up to 5 mm in thickness to the left of the anterior interhemispheric falx. There is no evidence of edematous territorial infarction. A few foci of hypoattenuation in the periventricular and deep white matter are consistent with mild microangiopathy. Robertson-white matter differentiation is preserved. Proportional prominence of the ventricles and sulcal spaces. No evidence for obstructive hydrocephalus. Stable large arachnoid cyst in the anterior right middle cranial fossa with similar degree of mass effect upon the adjacent right temporal and right frontal territory including stable distortion of the right lateral ventricle. 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 Large left occipital scalp hematoma. No displaced calvarial fracture. The mastoid air cells and paranasal sinuses are clear. Cervical Spine: The atlantoaxial and atlantooccipital articulations are maintained. Unchanged reversal the cervical lordosis with apex at C4-C5. Stable grade 1 anterolisthesis of C4 on C5 and C7 on T1. No evidence of acute compression deformity or interval subluxation. Moderate to severe multilevel intervertebral disc height loss, more pronounced at C5-C6 and C6-C7. Multilevel osteophyte complexes as well as facet and uncovertebral hypertrophy leading to various degrees of central canal stenosis and neural foraminal encroachment, that are severe at the level of the mid to lower cervical spine. Stable ligamentous/soft tissue calcifications adjacent to the dens. No prevertebral soft tissue thickening. The thyroid gland and remaining cervical soft tissues are normal in appearance. The lung apices demonstrate no abnormalities. CT/CT cervical spine wo IV con IMPRESSION: 1. Acute subdural hematoma measuring up to 5 mm in thickness to the left of the anterior interhemispheric falx. 2. Large left occipital scalp hematoma. 3. No acute cervical spinal fracture or evidence of traumatic subluxation. 4. Stable large arachnoid cyst in the anterior right middle cranial fossa with similar degree of mass effect upon the adjacent right temporal and right frontal lobes, and right lateral ventricle. 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 5. Severe multilevel cervical spondylosis with severe central canal stenosis and neural foraminal encroachment at the level of the mid to lower cervical spine. If there is clinical concern for cervical myelopathy, then a dedicated cervical spine MRI could be obtained for further evaluation of the cord and canal. This critical result was discussed with INEZ White at 08/11/2023 9:13 PM and it was ascertained that the content and urgency of the report was understood at the time of direct communication.
[2023-08-11 19:34] VITALS: BP 162/85; PULSE 84; RESP 16; TEMP 35.6; O2SAT 95; BMI 21.9
--- NOTE | 2023-08-11 19:35 | ED_ITS ---
HPI - Head Injury General Chief complaint: Head Injury Stated complaint: head injury Time Seen by Provider: 08/11/23 20:01 Source: patient Mode of arrival: ambulatory Limitations: no limitations History of Present Illness HPI Narrative: This is a 72-year-old female history of TIA, hypertension presenting to the emergency department status post fall, patient reports that she was standing on a milk crate, fell backwards onto a cement floor, unclear if she lost consciousness or not she says she does not really remember, she noticed she had some bleeding from the back of her head and she became concerned because she is on aspirin and clopidogrel. Patient does not think she was on the ground for a long time. She is reporting mild diffuse headache. She denies chest pain, shortness of breath, vision changes, dizziness, weakness, nausea, vomiting, abdominal pain. No preceding sx to fall. NIH stroke scale 0 Related Data Home Medications Medication Instructions Recorded Confirmed lorazepam 0.5 mg tablet 0.5 mg PO BEDTIME 01/23/23 07/19/23 metformin 1,000 mg tablet 1,000 mg PO BID 01/23/23 07/19/23 multivitamin 1 tab PO DAILY 02/03/23 07/19/23 escitalopram oxalate 10 mg tablet 10 mg PO DAILY 03/08/23 07/19/23 Previous Rx's Medication Instructions Recorded aspirin 81 mg tablet,delayed 81 mg PO DAILY 30 days #90 tabs 03/08/23 release atorvastatin 40 mg tablet 40 mg PO BEDTIME 30 days #90 tabs 03/08/23 clopidogrel 75 mg tablet (Plavix) 75 mg PO DAILY 30 days #90 tabs 03/08/23 metoprolol succinate 50 mg 50 mg PO DAILY #90 tabs 03/08/23 tablet,extended release 24 hr Allergies Allergy/AdvReac Type Severity Reaction Status Date / Time No Known Allergies Allergy Verified 03/08/23 15:16 Review of Systems 2 Review of Systems: Constitutional : No Weight loss, No Fever, No Chills, No Fatigue, No Malaise ENT/Mouth : No sore throat, No Rhinorrhea Eyes: No Eye Pain, No Swelling, No Redness Cardiovascular : No Chest Pain, No SOB, No Dyspnea on Exertion, No Orthopnea, No Edema, No Palpitations Respiratory : No Cough, No Sputum, No Wheezing Gastrointestinal : No Nausea, No Vomiting, No Diarrhea, No Constipation, No abdominal Pain, No Hematochezia, No Melena Genitourinary : No Dysuria, No Urinary Frequency, No Hematuria, Musculoskeletal : No joint pain, No Myalgias, No Joint Swelling Skin : No Skin Lesions, No rash Neuro : No Weakness, No Numbness, No Dizziness, + Headache Psych : No Anxiety/Panic, No Depression All other systems reviewed and are negative Yes all other systems are reviewed and are negative PMFSH Past Medical History Attestation statement: The following information was validated with the patient. Source: old records reviewed and nursing notes reviewed Medical History Pacemaker (~12/2022) Depression Diabetes mellitus Hyperlipidemia Hypertension Surgical History History of pacemaker History of lumpectomy of right breast History of right breast biopsy History of back surgery History of tubal ligation Social History Social History Household Members: Spouse Housing: House Do you presently have visiting nurse or other home services: No Alcohol intake: never Patient Tobacco Use Status: Never used Tobacco Smoked in Last 30 Days: No e-Cigarette/Vaping Use: Never Used Second Hand Smoke Exposure: No Use of substances other than those prescribed or required for medical reasons: No Advance Directives: Yes Advance Directives on File: Yes Advance Directives Date on File: 01/26/23 service: No Current occupational status: employed Physical Exam 2 Vital Signs: Vital Signs: Last Vital Signs Temp 97.9 F 08/11/23 20:38 Pulse 83 08/11/23 20:38 Resp 16 08/11/23 20:38 BP 151/82 H 08/11/23 20:38 Pulse Ox 96 08/11/23 20:38 O2 Del Method Room Air 08/11/23 20:38 BMI result Body Mass Index 21.9 vss Appearance: Alert.? Oriented X3.? No acute distress.? Head: Normocephalic, atraumatic, no step-offs or deformities + large hematoma to the left occiput with subsequent laceration about 1 cm. Eyes: Pupils equal, round and reactive to light.? ENT: Pharynx normal.? Neck: Normal inspection.? Neck supple.? CVS: Normal heart rate and rhythm.? Pulses normal.? Respiratory: No respiratory distress.? Breath sounds normal.? Abdomen: Soft and nontender.? Skin: Skin warm and dry.? Normal skin color.? Normal skin turgor.? Extremities: No lower extremity edema.? No calf ttp. 5/5 strength to bilateral upper and lower extremities Neuro: Oriented X 3.? No motor deficit.? No sensory deficit. CN 2-12 intact Course Course Course Narrative: This is an RME: Additional HPI, ROS, PE not included below will be deferred to primary provider. Patient is a 72-year-old female presents emergency department for evaluation after head injury. At approximately 17:45 he was standing on top of a milk crate trying to clear out the washing machine and she lost balance and fell backwards striking her head onto the cement the cement floor. Denies loss of consciousness. Reporting a localized headache to this region.. PE: large hematoma to left occiput, no active bleeding. NIH score 0. On ASA and plavix. No Midline cervical spine tenderness, step-offs, deformities. Plan: CT Reevaluation(s) Reevaluation #1: CBC with leukocytosis and a normocytic anemia, leukocytosis seems to be around patient's baseline. Chemistry pending. Coags within normal limits. Time: 21:55 Reevaluation #2: Spoke w/ [facility] radiology patient is noted to have a subdural head bleed in the frontal lobe. Will reach out to [facility] at this time Laceration bleeding at this time repaired w/ 1, 4-0 non dissolvable suture. No complications chemistry w/ elevated BUN 31 will hydrate and mag of 1.5 no need for repletion at this time. No other electrolyte abnormalities. Time: 21:08 Reevaluation #3: Patient accepted as a trauma category 2 transfer to [facility]. Patient requiring higher level of care that we do not have here at this hospital. Patient is stable condition at this time her NIH Stroke Scale remains 0 GCS still 15. Will give morphine for pain control as she is complaining of worsening headache Time: 21:23 Medical Decision Making Medical Decision Making [facility] Narrative: 2024 72 year old female presents w/ fall from milk crate onto cement w/ subsequent laceration, on asa and plavix. No precedin sx to fall Physical examination with a large hematoma to the left occiput with subsequent laceration about 1 cm. History and physical exam concerning for concussion with hematoma. Will rule out intracranial hemorrhage as patient is anticoagulated. Unlikely stroke based off of patient history, physical exam. Negative NIH stroke scale. This is likely a closed head injury. I do not suspect ACS, PE, dysrhythmias . Will rule out electrolyte abnormalities. Plan labs, imaging, EKG GCS- 15 NIHSS- 0 Differential Diagnosis Differential Diagnoses: The differential diagnosis associated with the presentation includes History and physical exam concerning for concussion with hematoma. Will rule out intracranial hemorrhage as patient is anticoagulated. . Unlikely stroke based off of patient history, physical exam. Negative NIH stroke scale. This is likely a closed head injury. I do not suspect ACS, PE, dysrhythmias . Will rule out electrolyte abnormalities. Admission/Observation Consideration of admission/observation: Escalation of care including admission/observation considered unlikey Lab Data MDM Lab Attestation statement: I reviewed the patient's lab results. 08/11/23 20:55 08/11/23 20:55 Labs: Lab Results 08/11/23 Range/Units 20:55 WBC 12.1 H (4.8-10.8) X10*3/uL RBC 3.70 L (4.20-5.50) X10*6/uL Hgb 11.4 L (12.0-16.0) g/dl Hct 34.4 L (37.0-47.0) % MCV 93.0 (80.0-98.0) fL MCH 30.8 (27.0-33.0) pg MCHC 33.1 (31.0-35.0) g/dl RDW 12.4 (11.0-16.0) % Plt Count 439 H (160-400) X10*3/uL MPV 9.0 L (9.4-12.3) fL Immature Gran % (Auto) 0.5 H (0.0-0.4) % Neut % (Auto) 77.9 H (45-73) % Lymph % (Auto) 13.8 L (20-40) % [place] % (Auto) 5.7 (2-11) % Eos % (Auto) 1.5 (0-4) % Baso % (Auto) 0.6 (0-2) % Lymph # (Auto) 1.7 (1.2-4.9) X10*3/uL [place] # (Auto) 0.7 (0.1-1.2) X10*3/uL Eos # (Auto) 0.2 (0.0-0.4) X10*3/uL Baso # (Auto) 0.1 (0.0-0.2) X10*3/uL Abs Immat Gran (auto) 0.06 H (0.00-0.03) X10*3/uL Absolute Neuts (auto) 9.4 H (2.0-8.3) x10*3/uL Absolute Nucleated RBC 0.000 (0.0-0.012) X10*3/uL Nucleated RBC % (auto) 0.0 (0.0-0.2) /100WBC PT 11.9 (11.1-13.3) SEC INR 1.0 (0.9-1.1) Sodium 141 (135-145) mmol/L Potassium 4.6 (3.3-5.1) mmol/L Chloride 111 H (96-108) mmol/L Carbon Dioxide 22 (22-29) mmol/L Anion Gap 13 (12-20) BUN 31 H (9-16) mg/dL Creatinine 1.04 (0.5-1.4) mg/dL Estim Creat Clear Calc 39.2 Estimated GFR 52 Random Glucose 112 (60-115) mg/dL Calcium 9.7 D (8.4-10.2) mg/dL Magnesium 1.5 L (1.6-2.6) mg/dL Total Bilirubin 0.7 (0.0-1.0) mg/dL AST 22 (5-31) U/L ALT 19 (0-31) U/L Alkaline Phosphatase 93 (39-117) U/L Total Protein 7.1 (6.5-8.0) g/dL Albumin 4.3 (3.5-5.0) g/dL Independent Interpretation I performed an independent interpretation of an: EKG (Ventricular rate of 84, KS normal, QRS normal, QT/QTC normal. EKG atrial sensed ventricularly paced rhythm no ST elevations or inversions concerning for acute ischemia), Plain X-Ray and CT Scan (CT/CT head/brain wo IV con IMPRESSION: 1. Acute subdural hematoma measuring up to 5 mm in thickness to the left of the anterior interhemispheric falx. 2. Large left occipital scalp hematoma. 3. No acute cervical spinal fracture or evidence of traumatic subluxation. 4. Stable large arachnoid cyst) Radiology Impression Discussion of test interpretation with radiology: I have reviewed the radiologist's reading. Chronic Conditions Patient?s care impacted by: Hypertension Critical Care Time Critical Care Time Critical Care Time: Yes Total Critical Care Time: 45 Attestation: I attest to this time spent taking care of the patient, obtaining history, physical, reviewing labs, imaging, speaking to my attending, speaking to specialist. Discharge Plan Discharge Clinical Impression: Subdural bleeding, Concussion, Traumatic hematoma of head, Fall, Laceration of scalp Patient Disposition: [facility] Transfer Details: [facility] [place] [facility] Trauma Transfer Category II Instructions: Concussion (ED), Contusion in Adults (ED), Post Concussion Syndrome (ED), Fall Prevention (ED) Additional Instructions: Take your medications as prescribed. If you were prescribed antibiotics today, it is important that you take your medication to their entirety, do not skip any doses, do not finish them early. Follow-up with your primary care provider this week. Return to the emergency department with new or worsening symptoms. Such as fevers, chills, chest pain, shortness of breath, nausea, vomiting, dizziness, headache, vision changes, lethargy In case of emergency call 911 Prescriptions: No Action lorazepam 0.5 mg tablet 0.5 mg PO BEDTIME metformin 1,000 mg tablet 1,000 mg PO BID multivitamin Tablet 1 tab PO DAILY escitalopram oxalate 10 mg tablet 10 mg PO DAILY aspirin 81 mg tablet,delayed release (DR/EC) 81 mg PO DAILY 30 Days Qty: 90 3RF atorvastatin 40 mg tablet 40 mg PO BEDTIME 30 Days Qty: 90 3RF clopidogrel [Plavix] 75 mg tablet 75 mg PO DAILY 30 Days Qty: 90 3RF metoprolol succinate 50 mg tablet extended release 24 hr 50 mg PO DAILY Qty: 90 3RF Referrals: David Henriquez MD [Primary Care Provider] - 2 days
--- NOTE | 2023-08-11 20:34 | ECG_ITS ---
Test Reason : FALL Blood Pressure : / mmHG Vent. Rate : 084 BPM Atrial Rate : 084 BPM P-R Int : 168 ms QRS Dur : 202 ms QT Int : 490 ms P-R-T Axes : 069 -57 115 degrees QTc Int : 579 ms Atrial-sensed ventricular-paced rhythm Abnormal ECG When compared with ECG of 03-FEB-2023 18:41, Vent. rate has decreased BY 4 BPM Referred By: Sonam Saldaña Electronically Signed By:TERRENCE MORALES MD
[2023-08-11 20:38] VITALS: BP 151/82; PULSE 83; RESP 16; TEMP 36.6; O2SAT 96
[2023-08-11 21:05] LABS: MANUAL DIFF FLAG NO
[2023-08-11 21:07] LABS: Basophils Absolute Auto 0.1 X10*3/uL (0.0-0.2); Basophils Percent Auto 0.6 % (0-2); Eosinophils Absolute Auto 0.2 X10*3/uL (0.0-0.4); Eosinophils Percent Auto 1.5 % (0-4); Hematocrit 34.4 % (37.0-47.0); Hemoglobin 11.4 g/dl (12.0-16.0); Imm Gran Abs Auto 0.06 X10*3/uL (0.00-0.03); Imm Gran Pct Auto 0.5 % (0.0-0.4); Lymphocytes Absolute Auto 1.7 X10*3/uL (1.2-4.9); Lymphocytes Percent Auto 13.8 % (20-40); Mean Corpuscular HGB Conc 33.1 g/dl (31.0-35.0); Mean Corpuscular Hemoglobin 30.8 pg (27.0-33.0); Monocytes Absolute Auto 0.7 X10*3/uL (0.1-1.2); Monocytes Percent Auto 5.7 % (2-11); Neutrophils Absolute Auto 9.4 x10*3/uL (2.0-8.3); Neutrophils Percent Auto 77.9 % (45-73); Platelet Count 439 X10*3/uL (160-400); Red Cell Distribution Width 12.4 % (11.0-16.0); White Blood Count 12.1 X10*3/uL (4.8-10.8)
[2023-08-11 21:13] LABS: Prothrombin Time 11.9 SEC (11.1-13.3)
[2023-08-11 21:22] LABS: Alanine Aminotransferase 19 U/L (0-31); Albumin Level 4.3 g/dL (3.5-5.0); Alkaline Phosphatase 93 U/L (39-117); Anion Gap 13 (12-20); Aspartate Amino Transferase 22 U/L (5-31); Bilirubin Total 0.7 mg/dL (0.0-1.0); Blood Urea Nitrogen 31 mg/dL (9-16); Calcium 9.7 mg/dL (8.4-10.2); Carbon Dioxide 22 mmol/L (22-29); Chloride 111 mmol/L (96-108); Creatinine Clr Calc Pharmacy 39.2; Estimated Glomerular Filt Rate 52; Glucose Random 112 mg/dL (60-115); Magnesium 1.5 mg/dL (1.6-2.6); Potassium 4.6 mmol/L (3.3-5.1); Sodium 141 mmol/L (135-145); Total Protein 7.1 g/dL (6.5-8.0)
[2023-08-11 21:29] LABS: Troponin-I High Sensitivity 19.9 ng/L (<3.5-17.0)
[2023-08-11] MEDS: Morphine Sulfate 2 MG/ML CARTRIDGE IVPUSH (21:45)
[2023-08-11] MEDS: 0.9 % Sodium Chloride 500 ML IV (22:01)
--- NOTE | 2023-08-11 22:59 | PC.NURSE ---
Pt brought in by , reports she ad a fall while standing on a milk crate. She fell and hit her head, unsire of LOC, reports she is on thinners for pacemaker. Patient is alert and orientedX4, VSS, Neuros intact, cleaned head lac with sale and hydrogen peroxide per PA. Pt had CT completed, labs and EKG complete. Cornelia WILEY and student placed one stitch at this time due to bleeding. CT results showed arterial bleed. #20 IV placed in L-AC, patient given morphine 2mg IV for 3/10 pain in her head. Pts brought in from the parking lot and informed of plane. Pt transferred to [facility]. This RN did Nurse to Nurse with
== END 2023-08-11 21:43 | disposition short-term general hospital (02) ==
PROVIDERS: Physician Assistant; Emergency Provider Emergency Medicine; PCP Internal Medicine
DX: S06.5XAA Traumatic subdural hemorrhage with loss of consciousness status unknown, initial encounter (principal); S01.01XA Laceration without foreign body of scalp, initial encounter; R51.9 Headache, unspecified; M54.2 Cervicalgia; R07.89 Other chest pain; W01.10XA Fall on same level from slipping, tripping and stumbling with subsequent striking against unspecified object, initial encounter; Y93.9 Activity, unspecified; Y92.9 Unspecified place or not applicable; Y99.9 Unspecified external cause status; Z79.899 Other long term (current) drug therapy
CPT/HCPCS: 36415; 70450; 71045; 72125; 80053; 83735; 84484; 85025; 85610; 93005; 96374; 99285; J2270

== ENCOUNTER → 2023-10-30 23:59 | Outpatient (BNV) | payer MEDICARE, SELFPAY ==
--- NOTE | 2023-11-11 20:31 | A.OFFVIS_ITS ---
Intake Intake Visit Reasons: Remote Device Check- [facility] Allergies No Known Allergies Allergy (Verified 03/08/23 15:16) PFSH Medical History Pacemaker (~12/2022) Depression Diabetes mellitus Hyperlipidemia Hypertension Surgical History History of pacemaker History of lumpectomy of right breast History of right breast biopsy History of back surgery History of tubal ligation Social History Household Members: Spouse Housing: House Do you presently have visiting nurse or other home services: No Alcohol intake: never Comment: [facility] [place] Patient Tobacco Use Status: Never used Tobacco Smoked in Last 30 Days: No e-Cigarette/Vaping Use: Never Used Second Hand Smoke Exposure: No Use of substances other than those prescribed or required for medical reasons: No Advance Directives: Yes Advance Directives on File: Yes Advance Directives Date on File: 01/26/23 service: No Current occupational status: employed Office Procedures Cardiac Device Check Cardiac Device Check Details: PPM Good battery life. 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 [id number] Cardiac Device Interrogation, pacemaker Procedure code (CPT) selection complete Assessment & Plan Assessment & Plan (1) Pacemaker: Onset Date: ~12/2022 Comment: ([facility] DCPP - placed 01/24/23 for complete heart block) Code(s): Z95.0 - Presence of cardiac pacemaker Plan: Coding Level of Care Code Procedure Only Diagnoses Pacemaker Z95.0 CPT Codes Cardiac Device Check - Cardiac Device 12: [id number] Cardiac Device Interrogation, pacemaker ([id number])
== END ==
PROVIDERS: PCP Internal Medicine; Visit Provider Internal Medicine Cardiovascular Disease
DX: I44.2 Atrioventricular block, complete (principal); Z95.0 Presence of cardiac pacemaker
CPT/HCPCS: 93294

== ENCOUNTER 2024-01-24 14:00 | Outpatient (AMB) | payer MEDICARE, SELFPAY ==
[2024-01-24 14:04] VITALS: BP 104/60; PULSE 67; BMI 22.7
--- NOTE | 2024-01-24 14:04 | A.OFFVIS_ITS ---
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 She was seen in the hospital when she presented with complete heart block in significant hypertension with word-finding difficulties. She was in the intensive care unit on Cardene infusion and with blood pressure control her symptoms improved. She subsequently had dual-chamber pacemaker placed and was discharged home. It appears she got admitted again with similar symptoms and was seen by Neurology. It was felt that she has small-vessel atherosclerotic disease and maybe that is the reason she had these symptoms. These were labeled as TIA. She was on aspirin and Plavix previously and same medications were continued. She returns for follow-up today and had a pacemaker interrogation which was normal. She is denying any chest pain or shortness of breath. She has not had any further neurological symptoms since 02/05/2023. 07/19/23: She is here for follow-up. She has been doing well. Occasionally she gets lightheadedness when she gets out of bed quickly. Denies any other complaints otherwise. Blood pressure control is good. 01/24/24: She returns for follow-up. The noticed small amount of bleeding from the left nostril off and on. She is saying this is just small amount and at time when she is blowing her nose she has noticed that too. She has forced hot air at home during winter time. Blood pressure is well controlled. She has been taking aspirin and Plavix since her CVA. [facility] Medical History Pacemaker (~12/2022) Depression Diabetes mellitus Hyperlipidemia Hypertension Surgical History History of pacemaker History of lumpectomy of right breast History of right breast biopsy History of back surgery History of tubal ligation Social History Household Members: Spouse Housing: House Do you presently have visiting nurse or other home services: No Alcohol intake: never [place] [facility] Tobacco Use Status: Never used Tobacco e-Cigarette/Vaping Use: Never Used Second Hand Smoke Exposure: No Advance Directives Date on File: 01/26/23 service: No Current occupational status: employed Review of Systems Const Denies chills, Denies fatigue, Denies fever(s), Denies frequent falls, Denies weakness, Denies weight gain and Denies weight loss ENT Denies dizziness Card Denies chest pain, Denies leg edema, Denies lightheadedness, Denies palpitations, Denies dyspnea and Denies dyspnea on exertion Resp Denies cough, Denies dyspnea and Denies dyspnea on exertion GI Denies hematochezia Musc Denies abnormal gait, Denies muscle weakness, Denies numbness, Denies radiating pain into limb and Denies tingling Neuro Denies abnormal gait, Denies dizziness, Denies frequent falls, Denies numbness, Denies tingling and Denies weakness Endo Denies fatigue and Denies palpitations Physical Exam Vital Signs: Last Vital Signs Pulse 67 01/24/24 14:04 BP 104/60 01/24/24 14:04 BMI result Body Mass Index 22.7 GENERAL APPEARANCE: in no acute distress, pleasant. NECK: no carotid bruit, no jugular venous distention. SKIN: no suspicious lesions, warm and dry. HEART: no murmurs, regular rate and rhythm. LUNGS: clear to auscultation bilaterally. ABDOMEN: soft, nontender. EXTREMITIES: no edema. PERIPHERAL PULSES: equal. NEUROLOGIC: No gross deficits, AAO X 3 Assessment & Plan Assessment & Plan (1) Hypertension: Code(s): I10 - Essential (primary) hypertension Category: Medical (2) Pacemaker: Onset Date: ~12/2022 Comment: ([facility] DCPP - placed 01/24/23 for complete heart block) Code(s): Z95.0 - Presence of cardiac pacemaker Category: Medical (3) Transient cerebral ischemia: Onset Date: ~12/2022 Comment: (TIA events on 01/23/23 & 02/03/23) Code(s): G45.9 - Transient cerebral ischemic attack, unspecified Category: Medical Plan Pleasant 73 year female who is here for follow-up. She has background history of complete heart block and permanent pacemaker placement. She also had a TIA at the same time and was put on aspirin Plavix. She is noticing some small amount of bleeding from the left nostril off and on. This could be related to dryness which is, during winter time. She is also on dual antiplatelet therapy and I think aspirin can be discontinued at this stage. I have discussed this with the patient and she is agreeable to stop the aspirin and continue Plavix monotherapy. I have also advised her to use saline nasal spray specially with the time. Thank you for allowing me to participate in the care of your patient. Please feel free to contact me if you have any questions. Coding Level of Care Code Est Pt Level 4 (69746) Diagnoses Hypertension I10 Pacemaker Z95.0 Transient cerebral ischemia G45.9
== END 2024-01-24 14:26 | disposition home or self-care (01) ==
PROVIDERS: PCP Internal Medicine; Visit Provider Internal Medicine Cardiovascular Disease
DX: I10 Essential (primary) hypertension (principal); Z95.0 Presence of cardiac pacemaker; G45.9 Transient cerebral ischemic attack, unspecified
CPT/HCPCS: 99214

== ENCOUNTER → 2024-01-24 14:00 | Outpatient (BNVA) | payer MEDICARE, SELFPAY | PROVIDERS: PCP Internal Medicine; Visit Provider Internal Medicine Cardiovascular Disease | DX: I10 Essential (primary) hypertension (principal); Z95.0 Presence of cardiac pacemaker; Z86.73 Personal history of transient ischemic attack (TIA), and cerebral infarction without residual deficits | CPT/HCPCS: 99212 ==

== ENCOUNTER → 2024-01-29 23:59 | Outpatient (BNV) | payer MEDICARE, SELFPAY ==
--- NOTE | 2024-02-05 10:31 | MHC.OFFVIS ---
Intake Visit Reasons: REmote device check- [facility] Allergies No Known Allergies Allergy (Verified 03/08/23 15:16) [facility] Medical History Pacemaker (~12/2022) Depression Diabetes mellitus Hyperlipidemia Hypertension Surgical History History of pacemaker History of lumpectomy of right breast History of right breast biopsy History of back surgery History of tubal ligation Social History Household Members: Spouse Housing: House Do you presently have visiting nurse or other home services: No Alcohol intake: never Comment: C Patient Tobacco Use Status: Never used Tobacco e-Cigarette/Vaping Use: Never Used Second Hand Smoke Exposure: No Advance Directives Date on File: 01/26/23 service: No Current occupational status: employed Office Procedures Cardiac Device Check Cardiac Device Check Details: Arzola PPM Good battery life. V paced 94%. One episode of 5 beats of nonsustained VT recorded. [id number] Cardiac Device Interrogation, pacemaker Procedure code (CPT) selection complete Assessment & Plan Assessment & Plan (1) Pacemaker: Onset Date: ~12/2022 Comment: ([facility] DCPP - placed 01/24/23 for complete heart block) Code(s): Z95.0 - Presence of cardiac pacemaker Category: Medical Plan Orders: Orders AMB Cardiac Device Follow-up 01/29/24 I48.0 - Paroxysmal atrial fibrillation Coding Level of Care Code Procedure Only Diagnoses Pacemaker Z95.0 CPT Codes Cardiac Device Check - Cardiac Device 12: [id number] Cardiac Device Interrogation, pacemaker ([id number])
== END ==
PROVIDERS: PCP Internal Medicine; Visit Provider Internal Medicine Cardiovascular Disease
DX: R00.0 Tachycardia, unspecified (principal); Z95.0 Presence of cardiac pacemaker
CPT/HCPCS: 93294

== ENCOUNTER → 2024-04-29 23:59 | Outpatient (BNV) | payer MEDICARE, SELFPAY ==
--- NOTE | 2024-05-08 09:09 | MHC.OFFVIS ---
Intake Visit Reasons: Remote device check- [facility] Allergies No Known Allergies Allergy (Verified 03/08/23 15:16) [facility] Medical History Pacemaker (~12/2022) Depression Diabetes mellitus Hyperlipidemia Hypertension Surgical History History of pacemaker History of lumpectomy of right breast History of right breast biopsy History of back surgery History of tubal ligation Social History Household Members: Spouse Housing: House Do you presently have visiting nurse or other home services: No Alcohol intake: never Comment: [facility] Patient Tobacco Use Status: Never used Tobacco e-Cigarette/Vaping Use: Never Used Second Hand Smoke Exposure: No Advance Directives Date on File: 01/26/23 service: No Current occupational status: employed Office Procedures Cardiac Device Check Cardiac Device Check Details: Arzola PPM 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
== END ==
PROVIDERS: PCP Internal Medicine; Visit Provider Internal Medicine Cardiovascular Disease
DX: I44.2 Atrioventricular block, complete (principal); Z95.0 Presence of cardiac pacemaker
CPT/HCPCS: 93294

== ENCOUNTER 2024-07-08 13:36 | Outpatient (AMB) | payer MEDICARE, SELFPAY ==
[2024-07-08 13:45] VITALS: BP 120/62; PULSE 66; BMI 23.1
--- NOTE | 2024-07-08 13:45 | A.OFFVIS_ITS ---
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 She was seen in the hospital when she presented with complete heart block in significant hypertension with word-finding difficulties. She was in the intensive care unit on Cardene infusion and with blood pressure control her symptoms improved. She subsequently had dual-chamber pacemaker placed and was discharged home. It appears she got admitted again with similar symptoms and was seen by Neurology. It was felt that she has small-vessel atherosclerotic disease and maybe that is the reason she had these symptoms. These were labeled as TIA. She was on aspirin and Plavix previously and same medications were continued. She returns for follow-up today and had a pacemaker interrogation which was normal. She is denying any chest pain or shortness of breath. She has not had any further neurological symptoms since 02/05/2023. 07/19/23: She is here for follow-up. She has been doing well. Occasionally she gets lightheadedness when she gets out of bed quickly. Denies any other complaints otherwise. Blood pressure control is good. 01/24/24: She returns for follow-up. The noticed small amount of bleeding from the left nostril off and on. She is saying this is just small amount and at time when she is blowing her nose she has noticed that too. She has forced hot air at home during winter time. Blood pressure is well controlled. She has been taking aspirin and Plavix since her CVA. 07/08/2024: She is here for follow-up. No symptoms to report. Continues to get some off and on nosebleeds from left nostril. She is on Plavix for stroke. We stopped the aspirin on last visit but it appears this did not fix the issue. [facility] Medical History Pacemaker (~12/2022) Depression Diabetes mellitus Hyperlipidemia Hypertension Surgical History History of pacemaker History of lumpectomy of right breast History of right breast biopsy History of back surgery History of tubal ligation Social History Household Members: Spouse Housing: House Do you presently have visiting nurse or other home services: No Alcohol intake: never Comment: [facility] Patient Tobacco Use Status: Never used Tobacco e-Cigarette/Vaping Use: Never Used Second Hand Smoke Exposure: No Advance Directives Date on File: 01/26/23 service: No Current occupational status: employed Review of Systems Const Denies chills, Denies fatigue, Denies fever(s), Denies frequent falls, Denies weakness, Denies weight gain and Denies weight loss ENT Denies dizziness Card Denies chest pain, Denies leg edema, Denies lightheadedness, Denies palpitations, Denies dyspnea and Denies dyspnea on exertion Resp Denies cough, Denies dyspnea and Denies dyspnea on exertion GI Denies hematochezia Musc Denies abnormal gait, Denies muscle weakness, Denies numbness, Denies radiating pain into limb and Denies tingling Neuro Denies abnormal gait, Denies dizziness, Denies frequent falls, Denies numbness, Denies tingling and Denies weakness Endo Denies fatigue and Denies palpitations Physical Exam Vital Signs: Last Vital Signs Pulse 66 07/08/24 13:45 BP 120/62 07/08/24 13:45 BMI result Body Mass Index 23.1 GENERAL APPEARANCE: in no acute distress, pleasant. NECK: no carotid bruit, no jugular venous distention. SKIN: no suspicious lesions, warm and dry. HEART: no murmurs, regular rate and rhythm. LUNGS: clear to auscultation bilaterally. ABDOMEN: soft, nontender. EXTREMITIES: no edema. PERIPHERAL PULSES: equal. NEUROLOGIC: No gross deficits, AAO X 3 Assessment & Plan Assessment & Plan (1) Hypertension: Code(s): I10 - Essential (primary) hypertension Category: Medical (2) Pacemaker: Onset Date: ~12/2022 Comment: ([facility] DCPP - placed 01/24/23 for complete heart block) Code(s): Z95.0 - Presence of cardiac pacemaker Category: Medical Plan Pleasant 73 year female who is here for follow-up. She has history of complete heart block and TIA. She had permanent pacemaker placement and has been doing well. For the TIA she was on aspirin and Plavix and subsequently we stopped the aspirin due to left nostril epistaxis. She continues to get some episodes of epistaxis but is saying that this is self-limiting. I have advised her to by saline spray [id number] and use it 3 times a day and be careful during dry heat during winter. I have advised her to use a humidifier in the area she spends most of her time. I have recommended to see an ENT doctor but she currently does not want to see anyone. Stable from blood pressure point of view. Follow-up in 6 months. Thank you for allowing me to participate in the care of your patient. Please feel free to contact me if you have any questions. Coding Level of Care Code Est Pt Level 4 (71825) Diagnoses Hypertension I10 Pacemaker Z95.0
== END 2024-07-08 14:08 | disposition home or self-care (01) ==
PROVIDERS: PCP Internal Medicine; Visit Provider Internal Medicine Cardiovascular Disease
DX: I10 Essential (primary) hypertension (principal); Z95.0 Presence of cardiac pacemaker
CPT/HCPCS: 99214

== ENCOUNTER → 2024-07-08 13:36 | Outpatient (BNVA) | payer MEDICARE, SELFPAY | PROVIDERS: PCP Internal Medicine; Visit Provider Internal Medicine Cardiovascular Disease | DX: I44.2 Atrioventricular block, complete (principal); I10 Essential (primary) hypertension; E78.5 Hyperlipidemia, unspecified; Z95.0 Presence of cardiac pacemaker | CPT/HCPCS: 99212 ==

== ENCOUNTER → 2024-07-29 23:59 | Outpatient (BNV) | payer MEDICARE, SELFPAY ==
--- NOTE | 2024-08-05 20:46 | A.OFFVIS_ITS ---
Intake Visit Reasons: Remote device check- [facility] Allergies No Known Allergies Allergy (Verified 03/08/23 15:16) [facility] Medical History Pacemaker (~12/2022) Depression Diabetes mellitus Hyperlipidemia Hypertension Surgical History History of pacemaker History of lumpectomy of right breast History of right breast biopsy History of back surgery History of tubal ligation Social History Household Members: Spouse Housing: House Do you presently have visiting nurse or other home services: No Alcohol intake: never Comment: C Patient Tobacco Use Status: Never used Tobacco e-Cigarette/Vaping Use: Never Used Second Hand Smoke Exposure: No Advance Directives Date on File: 01/26/23 service: No Current occupational status: employed Office Procedures Cardiac Device Check Cardiac Device Check Details: PPM Good battery V paced 83% No new alerts. [id number] Cardiac Device Check, pacemaker dual lead Procedure code (CPT) selection complete Assessment & Plan Assessment & Plan (1) Pacemaker: Onset Date: ~12/2022 Comment: ([facility] DCPP - placed 01/24/23 for complete heart block) Code(s): Z95.0 - Presence of cardiac pacemaker Category: Medical Plan Orders: Orders AMB Cardiac Device Follow-up 07/29/24 Z95.0 - Presence of cardiac pacemaker Coding Level of Care Code Procedure Only Diagnoses Pacemaker Z95.0 CPT Codes Cardiac Device Check - Cardiac Device 2: [id number] Cardiac Device Check, pacemak er dual lead ([id number])
== END ==
PROVIDERS: PCP Internal Medicine; Visit Provider Internal Medicine Cardiovascular Disease
DX: Z45.018 Encounter for adjustment and management of other part of cardiac pacemaker (principal)
CPT/HCPCS: 93294

== ENCOUNTER → 2024-10-28 23:59 | Outpatient (BNV) | payer MEDICARE, SELFPAY ==
--- NOTE | 2024-11-05 13:40 | A.OFFVIS_ITS ---
Intake Visit Reasons: Remote device check- [facility] Allergies No Known Allergies Allergy (Verified 03/08/23 15:16) [facility] Medical History Pacemaker (~12/2022) Depression Diabetes mellitus Hyperlipidemia Hypertension Surgical History History of pacemaker History of lumpectomy of right breast History of right breast biopsy History of back surgery History of tubal ligation Social History Household Members: Spouse Housing: House Do you presently have visiting nurse or other home services: No Alcohol intake: never Comment: [facility] Patient Tobacco Use Status: Never used Tobacco e-Cigarette/Vaping Use: Never Used Second Hand Smoke Exposure: No Advance Directives Date on File: 01/26/23 service: No Current occupational status: employed Office Procedures Cardiac Device Check Cardiac Device Check Details: Arzola dual-chamber pacemaker. Capture threshold and lead impedance are stable. Battery life 9 years. DDD mode. V paced 98%. A paced less than 1%. No new alerts. [id number] Cardiac Device Check, pacemaker dual lead Procedure code (CPT) selection complete Assessment & Plan Assessment & Plan (1) Pacemaker: Onset Date: ~12/2022 Comment: ([facility] DCPP - placed 01/24/23 for complete heart block) Code(s): Z95.0 - Presence of cardiac pacemaker Category: Medical Plan Coding Level of Care Code Procedure Only Diagnoses Pacemaker Z95.0 CPT Codes Cardiac Device Check - Cardiac Device 2: 92729-UK Cardiac Device Check, pacemaker dual lead ([id number])
== END ==
PROVIDERS: PCP Internal Medicine; Visit Provider Internal Medicine Cardiovascular Disease
DX: I44.2 Atrioventricular block, complete (principal); Z95.0 Presence of cardiac pacemaker
CPT/HCPCS: 93294

== ENCOUNTER → 2025-01-27 23:59 | Outpatient (BNV) | payer MEDICARE, SELFPAY ==
--- NOTE | 2025-02-16 21:25 | A.OFFVIS_ITS ---
Intake Visit Reasons: Remote device check- [facility] Allergies No Known Allergies Allergy (Verified 03/08/23 15:16) [facility] Medical History Pacemaker (~12/2022) Depression Diabetes mellitus Hyperlipidemia Hypertension Surgical History History of pacemaker History of lumpectomy of right breast History of right breast biopsy History of back surgery History of tubal ligation Social History Household Members: Spouse Housing: House Do you presently have visiting nurse or other home services: No Alcohol intake: never Comment: C Patient Tobacco Use Status: Never used Tobacco e-Cigarette/Vaping Use: Never Used Second Hand Smoke Exposure: No Advance Directives Date on File: 01/26/23 service: No Current occupational status: employed Office Procedures Cardiac Device Check Cardiac Device Check Details: PPM 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 No new alerts. [id number] Cardiac Device Interrogation, pacemaker Procedure code (CPT) selection complete Assessment & Plan Assessment & Plan (1) Pacemaker: Onset Date: ~12/2022 Comment: ([facility] DCPP - placed 01/24/23 for complete heart block) Code(s): Z95.0 - Presence of cardiac pacemaker Category: Medical Plan Coding Level of Care Code Procedure Only Diagnoses Pacemaker Z95.0 CPT Codes Cardiac Device Check - Cardiac Device 12: [id number] Cardiac Device Interrogation, pacemaker ([id number])
== END ==
PROVIDERS: PCP Internal Medicine; Visit Provider Internal Medicine Cardiovascular Disease
DX: I44.2 Atrioventricular block, complete (principal); Z95.0 Presence of cardiac pacemaker
CPT/HCPCS: 93294

== ENCOUNTER 2025-03-10 14:59 | Outpatient (AMB) | payer MEDICARE, SELFPAY ==
[2025-03-10 15:13] VITALS: BP 122/64; PULSE 60; BMI 22.3
--- NOTE | 2025-03-10 15:13 | MHC.OFFVIS ---
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 She was seen in the hospital when she presented with complete heart block in significant hypertension with word-finding difficulties. She was in the intensive care unit on Cardene infusion and with blood pressure control her symptoms improved. She subsequently had dual-chamber pacemaker placed and was discharged home. It appears she got admitted again with similar symptoms and was seen by Neurology. It was felt that she has small-vessel atherosclerotic disease and maybe that is the reason she had these symptoms. These were labeled as TIA. She was on aspirin and Plavix previously and same medications were continued. She returns for follow-up today and had a pacemaker interrogation which was normal. She is denying any chest pain or shortness of breath. She has not had any further neurological symptoms since 02/05/2023. 07/19/23: She is here for follow-up. She has been doing well. Occasionally she gets lightheadedness when she gets out of bed quickly. Denies any other complaints otherwise. Blood pressure control is good. 01/24/24: She returns for follow-up. The noticed small amount of bleeding from the left nostril off and on. She is saying this is just small amount and at time when she is blowing her nose she has noticed that too. She has forced hot air at home during winter time. Blood pressure is well controlled. She has been taking aspirin and Plavix since her CVA. 07/08/2024: She is here for follow-up. No symptoms to report. Continues to get some off and on nosebleeds from left nostril. She is on Plavix for stroke. We stopped the aspirin on last visit but it appears this did not fix the issue. 03/10/2025: Here for follow-up. She is complaining of dyspnea on exertion especially when she is going uphill and with stairs. No chest discomfort. No orthopnea or PND. No peripheral edema. [facility] Medical History Pacemaker (~12/2022) Depression Diabetes mellitus Hyperlipidemia Hypertension Surgical History History of pacemaker History of lumpectomy of right breast History of right breast biopsy History of back surgery History of tubal ligation Social History Household Members: Spouse Housing: House Do you presently have visiting nurse or other home services: No Alcohol intake: never Comment: [facility] Patient Tobacco Use Status: Never used Tobacco e-Cigarette/Vaping Use: Never Used Second Hand Smoke Exposure: No Advance Directives Date on File: 01/26/23 service: No Current occupational status: employed Review of Systems Const Denies chills, Denies fatigue, Denies fever(s), Denies frequent falls, Denies weakness, Denies weight gain and Denies weight loss ENT Denies dizziness Card Denies chest pain, Denies leg edema, Denies lightheadedness, Denies palpitations, Denies dyspnea and Denies dyspnea on exertion Resp Denies cough, Denies dyspnea and Denies dyspnea on exertion GI Denies hematochezia Musc Denies abnormal gait, Denies muscle weakness, Denies numbness, Denies radiating pain into limb and Denies tingling Neuro Denies abnormal gait, Denies dizziness, Denies frequent falls, Denies numbness, Denies tingling and Denies weakness Endo Denies fatigue and Denies palpitations Physical Exam Vital Signs: Last Vital Signs Pulse 60 03/10/25 15:13 BP 122/64 03/10/25 15:13 BMI result Body Mass Index 22.3 GENERAL APPEARANCE: in no acute distress, pleasant. NECK: no carotid bruit, no jugular venous distention. SKIN: no suspicious lesions, warm and dry. HEART: no murmurs, regular rate and rhythm. LUNGS: clear to auscultation bilaterally. ABDOMEN: soft, nontender. EXTREMITIES: no edema. PERIPHERAL PULSES: equal. NEUROLOGIC: No gross deficits, AAO X 3 Assessment & Plan Assessment & Plan (1) SEVILLA (dyspnea on exertion): Code(s): R06.09 - Other forms of dyspnea Category: Medical (2) Hypertension: Code(s): I10 - Essential (primary) hypertension Category: Medical (3) Pacemaker: Onset Date: ~12/2022 Comment: ([facility] DCPP - placed 01/24/23 for complete heart block) Code(s): Z95.0 - Presence of cardiac pacemaker Category: Medical (4) Transient cerebral ischemia: Onset Date: ~12/2022 Comment: (TIA events on 01/23/23 & 02/03/23) Code(s): G45.9 - Transient cerebral ischemic attack, unspecified Category: Medical Plan Pleasant 74 year female who is here for follow-up. She had background history of TIA and complete heart block. She has been on Plavix monotherapy at this point along with the atorvastatin. Blood pressure is well controlled. She has dyspnea on exertion which is new symptom for her. This happens when she is going uphill and with climbing stairs. We will do basic blood workup and arrange an echocardiogram for her. She will see us back in few months. Thank you for allowing me to participate in the care of your patient. Please feel free to contact me if you have any questions. Orders: Orders B Type Natriuretic Peptide Today R06.09 - Other forms of dyspnea Complete Blood Count no Diff Today R06.09 - Other forms of dyspnea CA echo transthoracic complete Today R06.09 - Other forms of dyspnea Coding Level of Care Code Est Pt Level 4 (67384) Complex EM visit Add On G2211 Diagnoses SEVILLA (dyspnea on exertion) R06.09 Hypertension I10 Pacemaker Z95.0 Transient cerebral ischemia G45.9
--- OUTSIDE RECORDS SUMMARY | 2025-03-10 16:46 | XMS_ITS | Patient Health Record ---
[facility] Organization [facility] Address [address] [place] [address] Care Team Providers Care Dean Of Instruction Name Role Phone David Henriquez Primary Care Provider Yuni Salazar Unavailable [phone] Allergies Allergen (clinical drug ingredient) Drug/Non Drug Allergy documented on EMR Reaction Allergy Type Onset Date Status Latex latex (uncoded) rash Allergy Acti ve Reason For Referral No Information Medications Medication SIG (Take, Route, Frequency, Duration) Notes Start Date End Date Status Metoprolol Succinate ER 50 MG Oral for 30 Active metFORMIN HCl 500 MG Oral for 30 Active Simvastatin 20 MG Oral for 30 Active Venlafaxine HCl ER 37.5 MG Oral for 30 Active Meclizine HCl 25 MG 1 tablet as needed O rally twice a day 10/31/2019 Active vitamin Active LORazepam 0.5 MG (Schedule IV Drug) O ral for 30 Active Social History Tobacco Use: Social History Observation Description Date Details (start date - stop date) Never Smoker NA - NA Tobacco Use/Smoking Question Answer Notes Are you a: nonsmoker Alcohol Screen Question Answer Notes Did you have a drink contain ing alcohol in the past year? Yes How often did you have a dri nk containing alcohol in the past year? Monthly or less (1 point) Points 1 Interpretation Negative Tobacco use other than smoking: Question Answer Notes Are you an other tobacco user? No Plan Of Treatment Pending Test Test Name Order Date X ray : Foot, left 3V 11/22/2019 X ray : Foot, right 3V 07/10/2020 [id number] TENDON SHEATH/LIGAMENT 1 Insurance Providers Payer Name Payer Address Payer Phone Subscriber Number Group Number Insured Name Patient Relationship to Insured Coverage Start Date Coverage End Date Medicare National Govt Svcs Inc [address] [place] [address] [id number] Al Nazanin Self - patient is the insured AARP Secondary to Medicare [address] [place] [address] [id number] Al Nazanin Self - patient is the insured Medical (General) History Medical History History ICD Code anxiety back,hip,knee pain cancer cataracts diabetes high blood pressure Meniere's disease Sciatica Surgical History Surgery Date(Month/Year) back 09/1995 Lumpectomy 06/2005 Disc removal 09/1995 Lasik both eyes 06/2013 repeat Lumpectomy 07/2005
== END 2025-03-10 15:43 | disposition home or self-care (01) ==
LOC: HO.HCS 15:00
PROVIDERS: PCP Internal Medicine; Visit Provider Internal Medicine Cardiovascular Disease
DX: R06.09 Other forms of dyspnea (principal); I10 Essential (primary) hypertension; Z95.0 Presence of cardiac pacemaker; G45.9 Transient cerebral ischemic attack, unspecified
CPT/HCPCS: 99214; G2211

== ENCOUNTER 2025-03-10 14:59 | Outpatient (REF) | payer MEDICARE, SELFPAY ==
[2025-03-10 17:07] LABS: Hemoglobin 10.8 g/dl (12.0-16.0); Mean Corpuscular HGB Conc 31.8 g/dl (31.0-35.0); Mean Corpuscular Hemoglobin 29.2 pg (27.0-33.0); Mean Corpuscular Volume 91.9 fL (80.0-98.0); Mean Platelet Volume 9.1 fL (9.4-12.3); Platelet Count 503 X10*3/uL (160-400); Red Cell Distribution Width 14.6 % (11.0-16.0); White Blood Count 9.9 X10*3/uL (4.8-10.8)
[2025-03-10 17:35] LABS: B Type Natriuretic Peptide 514 pg/mL (<100)
== END 2025-03-10 15:00 | disposition home or self-care (01) ==
LOC: HO.LAB 14:59
PROVIDERS: PCP Internal Medicine; Visit Provider Internal Medicine Cardiovascular Disease
DX: R06.09 Other forms of dyspnea (principal); I10 Essential (primary) hypertension; G45.9 Transient cerebral ischemic attack, unspecified; Z95.0 Presence of cardiac pacemaker
CPT/HCPCS: 36415; 83880; 85027; 99212

== ENCOUNTER → 2025-04-25 12:51 | Outpatient (REF) | payer MEDICARE, SELFPAY ==
--- NOTE | 2025-04-25 12:53 | CA_ITS ---
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 There is mildly increased left ventricular wall thickness. The left ventricular systolic function is severely decreased. The visually estimated ejection fraction is between 15-20%. - Normal right ventricular cavity size and systolic function. - The left atrium is severely dilated. The right atrium is normal in size. - There is mild to moderate mitral valve regurgitation. Findings Procedure Information Contrast agent, definity, is being given per protocol without apparent complications. Left Ventricle Severely increased left ventricular cavity size. There is mildly increased left ventricular wall thickness. The left ventricular systolic function is severely decreased. The visually estimated ejection fraction is between 15 20%. There is paradoxical septal motion consistent with a left bundle branch block. Diastolic function is indeterminate on the basis of available data. Right Ventricle Normal right ventricular cavity size and systolic function. Atria The left atrium is severely dilated. The right atrium is normal in size. Aortic Valve There is a normal trileaflet aortic valve. There is no aortic valve regurgitation. Mitral Valve The mitral valve appears normal. There is mild to moderate mitral valve regurgitation. There is no mitral valve stenosis. Pulmonic Valve The pulmonic valve is normal. There is trace pulmonic valve regurgitation. Tricuspid Valve Normal tricuspid valve structure. There is mild tricuspid valve regurgitation. Great Vessels All visible segments of the aorta are normal in size. The visualized portions of the pulmonary artery and branches are normal. Venous The inferior vena cava is normal in size and collapses greater than 50% with inspiration. Pericardium/Pleural There is no evidence of pericardial effusion. Measurements 2D Linear Measurements IVSd: 0.93 0.6-0.9/0.6-1.0 cm LVIDd: 6.32 3.9-5.3/4.2-5.9 cm LVIDd Index: 4.16 2.4-3.2/2.2-3.1 cm/m2 LVIDs: 5.57 2.0-3.6 cm LVPWd: 0.95 0.7-1.1 cm Ao Root: 2.70 2.1-3.5 cm LA Diam: 3.60 2.7-3.8/3.0-4.0 cm LAIDs Index: 2.37 1.5-2.3 cm/m2 LV Mass: 309.42 67-162/88-224 g LV Mass Index: 203.57 43-95/49-115 g/m2 LVOT Diam: 2.00 3.0+(-)1.3 cm 2D Systolic Function EF 4C: 16.70 >55% EF 2C: 11.00 >55% EF BiP: 14.30 >55% Mitral Valve MV VTI: 0.29 MV Pk Angel: 1.38 MV Mn Angel: 0.62 MV Pk Grad: 8.00 MV Mn Grad: 2.00 MV Pk E: 1.05 MV PK A: 1.35 MV Decel Time: 88.00 E/A: 0.80 E'Lateral: 8.05 E'Medial: 6.64 E/E' Med: 15.80 E/E' Lat: 13.00 PHT: 26.00 MVA PHT: 8.46 MVA Continuity: 1.54 Decel [place]: 11.90 LVOT LVOT Pk Angel: 0.70 LVOT Mn Angel: 0.43 LVOT VTI: 0.14 LVOT Pk Grad: 2.00 LVOT Mn Grad: 1.00 LVOT Diam: 2.00 LVOT Area: 3.14 Diastolic Function MV Pk E: 1.05 MV Pk A: 1.35 E/A: 0.80 E'Medial: 6.64 E/E' Med: 15.80 E' Laterial: 8.05 E/E' Lat: 13.00 Right Ventricle TAPSE (mm): 22.00 TVS' Angel: 11.00 Tricuspid Valve TR Pk Angel: 2.93 TR Pk Grad: 34.00 RA Press: 3.00 RVSP: 37.00 Great Vessels Aorta Ao Root-2D: 2.70 2.0-3.7 cm Ao Asc: 2.80 2.1-3.4 cm Pulmonary Valve PV Pk Angel: 0.96 Peak PV Grad: 4.00 Updated in Other Vendor System with Status of Final Francis Anand MD electronically signed on 04/27/2025 3:02:17 PM with status of Final
--- OUTSIDE RECORDS SUMMARY | 2025-04-25 12:53 | XMS_ITS | Patient Health Record ---
Author Organization [facility] Address [address] [place] [address] Care Team Providers Care Breakfast Manager Name Role Phone David Henriquez Primary Care Provider Yuni Salazar Unavailable [phone] Allergies Allergen (clinical drug ingredient) Drug/Non Drug Allergy documented on EMR Reaction Allergy Type Onset Date Status Latex latex (uncoded) rash Allergy Acti ve Reason For Referral No Information Medications Medication SIG (Take, Route, Frequency, Duration) Notes Start Date End Date Status Metoprolol Succinate ER 50 MG Oral; Duration: 30 Active metFORMIN HCl 500 MG Oral; Duration: 30 Active Simvastatin 20 MG Oral; Duration: 30 Active Venlafaxine HCl ER 37.5 MG Oral; Duration: 30 Active Meclizine HCl 25 MG 1 tablet as needed O rally twice a day 10/31/2019 Active vitamin Active LORazepam 0.5 MG (Schedule IV Drug) O ral; Duration: 30 Active Social History Tobacco Use: Social [...] X ray : Foot, right 3V 07/10/2020 [id number] TENDON SHEATH/LIGAMENT 1 Insurance Providers Payer Name Payer Address Payer Phone Subscriber Number Group Number Insured Name Patient Relationship to Insured Coverage Start Date Coverage End Date Medicare National Govt Svcs Inc [address] [place] [address] [id number] Nazanin Melendez Self - patient is the insured AARP Secondary to Medicare [address] [place] [address] [id number] Nazanin Melendez Self - patient is the insured Medical (General) History Medical History History ICD Code anxiety back,hip,knee pain cancer cataracts diabetes high blood pressure Meniere's disease Sciatica Surgical History Surgery Date(Month/Year) back 09/1995 Lumpectomy 06/2005 Disc removal 09/1995 Lasik both eyes 06/2013 repeat Lumpectomy 07/2005
== END ==
LOC: HO.CARD 12:51
PROVIDERS: PCP Internal Medicine; Visit Provider Internal Medicine Cardiovascular Disease
DX: R06.09 Other forms of dyspnea (principal)
CPT/HCPCS: 93306; Q9957

== ENCOUNTER → 2025-04-25 12:53 | Outpatient (BNV) | payer MEDICARE, SELFPAY | PROVIDERS: PCP Internal Medicine; Visit Provider Internal Medicine Cardiovascular Disease | DX: I34.0 Nonrheumatic mitral (valve) insufficiency (principal); I51.7 Cardiomegaly; I36.1 Nonrheumatic tricuspid (valve) insufficiency | CPT/HCPCS: 93306 ==

== ENCOUNTER → 2025-04-28 23:59 | Outpatient (BNV) | payer MEDICARE, SELFPAY ==
--- NOTE | 2025-05-18 20:53 | MHC.OFFVIS ---
Intake Visit Reasons: Remote device check- [facility] Allergies No Known Allergies Allergy (Verified 03/08/23 15:16) [facility] Medical History Pacemaker (~12/2022) Depression Diabetes mellitus Hyperlipidemia Hypertension Surgical History History of pacemaker History of lumpectomy of right breast History of right breast biopsy History of back surgery History of tubal ligation Social History Household Members: Spouse Housing: House Do you presently have visiting nurse or other home services: No Alcohol intake: never Comment: C Patient Tobacco Use Status: Never used Tobacco e-Cigarette/Vaping Use: Never Used Second Hand Smoke Exposure: No Advance Directives Date on File: 01/26/23 service: No Current occupational status: employed Office Procedures Cardiac Device Check Cardiac Device Check Details: 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 [id number] Cardiac Device Interrogation, pacemaker Procedure code (CPT) selection complete Assessment & Plan Assessment & Plan (1) Pacemaker: Onset Date: ~12/2022 Comment: ([facility] DCPP - placed 01/24/23 for complete heart block) Code(s): Z95.0 - Presence of cardiac pacemaker Category: Medical Plan Coding Level of Care Code Procedure Only Diagnoses Pacemaker Z95.0 CPT Codes Cardiac Device Check - Cardiac Device 12: [id number] Cardiac Device Interrogation, pacemaker ([id number])
== END ==
PROVIDERS: PCP Internal Medicine; Visit Provider Internal Medicine Cardiovascular Disease
DX: I44.2 Atrioventricular block, complete (principal); Z95.0 Presence of cardiac pacemaker
CPT/HCPCS: 93294

== ENCOUNTER 2025-06-13 13:24 | Outpatient (AMB) | payer MEDICARE, SELFPAY ==
[2025-06-13 13:26] VITALS: BP 110/70; PULSE 77; RESP 15; TEMP 36.9; O2SAT 96; BMI 22.5
--- NOTE | 2025-06-13 13:26 | AM.OFFWIN_ITS ---
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 Patient states it was gradual over a period of time and ?I tend to abuse Q-tips?. Patient denies having any ear pain, sore throat, fevers or chills. Patient does not wear hearing aids daily. [facility] Medical History Pacemaker (~12/2022) Depression Diabetes mellitus Hyperlipidemia Hypertension Surgical History History of pacemaker History of lumpectomy of right breast History of right breast biopsy History of back surgery History of tubal ligation Social History Household Members: Spouse Housing: House Do you presently have visiting nurse or other home services: No Alcohol intake: never Comment: [facility] Patient Tobacco Use Status: Never used Tobacco e-Cigarette/Vaping Use: Never Used Second Hand Smoke Exposure: No Advance Directives Date on File: 01/26/23 service: No Current occupational status: employed Review of Systems Const All systems reviewed & are unremarkable except as noted in HPI and below Reports no additional complaints, Denies chills, Denies fatigue and Denies fever(s) Eyes Reports no additional complaints ENT Denies Normal hearing present (decreased hearing left ear), Denies otalgia and Denies sinus pressure Neuro Denies Normal hearing present (decreased hearing left ear) Psych Reports no additional complaints Endo Denies fatigue Yamil/Lymph Reports no additional complaints Physical Exam Vital Signs: Last Vital Signs Temp 98.4 F 06/13/25 13:26 Pulse 77 06/13/25 13:26 Resp 15 06/13/25 13:26 BP 110/70 06/13/25 13:26 Pulse Ox 96 06/13/25 13:26 Oxygen Delivery Method Room Air 06/13/25 13:26 BMI result Body Mass Index 22.5 Const General: cooperative, healthy appearing, comfortable, no acute distress, well developed, alert, awake and Physically active Nutritional Appearance: well nourished Orientation/consciousness: patient oriented x3 Limitations: no limitations HEENT Head: Yes normal to inspection Ears: hearing grossly abnormal bilaterally (subjectively decreased hearing left ear), TM normal on the right and left TM abnormal (cerumen impaction) General nose exam: Normal external nose present Eyes General: appearance normal, both eyes and all related structures Skin General skin exam: no rashes or lesions noted Neuro General: patient oriented x3 Cranial nerves: No Normal hearing present (decreased hearing left ear) Psych Appearance: grossly normal Mental Status: mental status grossly normal Insight: Good insight present (Psych) Judgement: Good judgement present (Psych) Office Procedures Cerumen Removal From which ear canal was the cerumen removed: left Removal: irrigation Notes: patient tolerated procedure well [id number] Irrigation/Lavage Assessment & Plan Assessment & Plan (1) Left ear impacted cerumen: Comment: Cerumen in the left ear is completely removed. Code(s): H61.22 - Impacted cerumen, left ear Plan: Follow up only as needed. Coding Level of Care Code Est Pt Level 3 (38318) Diagnoses Left ear impacted cerumen H61.22 CPT Codes Office Procedure - CPT: 82422-Htn Irrigation/Lavage ([id number]) Time Spent (min) 20
--- OUTSIDE RECORDS SUMMARY | 2025-06-13 16:00 | XMS_ITS | Patient Health Record ---
[facility] Address [address] [place] [address] Care Team Providers Care Printing Supplies Sales Representative Name Role Phone David Henriquez Primary Care Provider Yuni Salazar Unavailable [phone] Allergies Allergen (clinical drug ingredient) Drug/Non Drug [...] X ray : Foot, right 3V 07/10/2020 [id number] TENDON SHEATH/LIGAMENT 1 Insurance Providers Payer Name Payer Address Payer Phone Subscriber Number Group Number Insured Name Patient Relationship to Insured Coverage Start Date Coverage End Date Medicare National Govt Svcs Inc [address] [place] [address] [id number] Nazanin Melendez Self - patient is the insured AARP Secondary to Medicare [address] [place] [address] [id number] Nazanin Melendez Self - patient is the insured Medical (General) History Medical History History ICD Code anxiety back,hip,knee pain cancer cataracts diabetes high blood pressure Meniere's disease Sciatica Surgical History Surgery Date(Month/Year) back 09/1995 Lumpectomy 06/2005 Disc removal 09/1995 Lasik both eyes 06/2013 repeat Lumpectomy 07/2005
--- OUTSIDE RECORDS SUMMARY | 2025-06-13 16:00 | XMS_ITS | Clinical Summary ---
Author Organization [facility] Address [address] [place] [id number] Phone Care Team Providers Care Cad Detailer Name Role Phone Pcp, Unknown Primary Care Provider Unavailabl e Social History Tobacco Use Types Packs/Day Years Used Date Smoking Tobacco: Never Assessed Education Answer Date Recorded Are you interested in more education? Not on alison e 01/28/2023 Are you concerned about learning? Not on file 01/28/2023 No 01/28/2023 No 01/28/2023 Digital Access Answer Date Recorded No 02/28/2023 No 02/28/2023 Reliable internet access at home? Not on file 02/28/2023 Device with a working camera? Not on file Comments Unknown Sex and Gender Information Value Date Recorded Sex Assigned at Not on file Legal Sex Female 12:29 PM EDT Gender Identity Not on file Sexual Orientation Not on file Plan of Treatment Not on file Medical Devices Not on file Insurance [facility] MEDICARE [place] [address] [place] [phone] [place] [address] [place] [address] [place] [id number] [facility] MEDICARE SUPPLEMENT [facility] MEDICARE SUPPLEMENT Care Teams Cad Detailer Relationship Specialty Start Date End Date Pcp, Unknown PCP - General 01/27/22 Additional Source Comments The information contained in this document represents components of the legal health record. It is not the complete legal health record.[facility]
== END 2025-06-13 14:07 | disposition home or self-care (01) ==
PROVIDERS: PCP Internal Medicine; Visit Provider Physician Assistant
DX: H61.22 Impacted cerumen, left ear (principal)

== ENCOUNTER → 2025-06-13 13:24 | Outpatient (BNVA) | payer MEDICARE, SELFPAY | PROVIDERS: PCP Internal Medicine; Visit Provider Physician Assistant | DX: H61.22 Impacted cerumen, left ear (principal) | CPT/HCPCS: 69209; 99212 ==

== ENCOUNTER 2025-06-30 12:57 | Outpatient (AMB) | payer MEDICARE, SELFPAY ==
[2025-06-30 13:14] VITALS: BP 110/62; PULSE 74; BMI 22.3
--- NOTE | 2025-06-30 13:14 | MHC.OFFVIS ---
Vital Signs 06/30/25 13:14 Height 5 ft 2 in Weight 121 lb 11.123 oz BMI 22.3 BP 110/62 Blood Pressure Location Lt brachial Position Sitting Pulse 74 Pulse Source Pulse Oximeter Intake Visit Reasons: 3 mth f/up Intake Note: 3 mth f/up- Unix Analyst Required: No Accompanied by: Self / Same As Patient Allergies No Known Allergies Allergy (Verified 03/08/23 15:16) Medication List - Last Reconciled 06/30/25 by Francis Anand MD atorvastatin 40 mg PO BEDTIME 90 days clopidogrel (Plavix) 75 mg PO DAILY 90 days escitalopram oxalate 10 mg PO DAILY lorazepam 0.5 mg PO BEDTIME metformin 1,000 mg PO BID metoprolol succinate ER 50 mg PO BID 90 days multivitamin 1 tab PO DAILY HPI Comments Details: Pleasant 74 year female who is here for follow-up. She was seen in the hospital when she presented with complete heart block in significant hypertension with word-finding difficulties. She was in the intensive care unit on Cardene infusion and with blood pressure control her symptoms improved. She subsequently had dual-chamber pacemaker placed and was discharged home. It appears she got admitted again with similar symptoms and was seen by Neurology. It was felt that she has small-vessel atherosclerotic disease and maybe that is the reason she had these symptoms. These were labeled as TIA. She was on aspirin and Plavix previously and same medications were continued. She returns for follow-up today and had a pacemaker interrogation which was normal. She is denying any chest pain or shortness of breath. She has not had any further neurological symptoms since 02/05/2023. 07/19/23: She is here for follow-up. She has been doing well. Occasionally she gets lightheadedness when she gets out of bed quickly. Denies any other complaints otherwise. Blood pressure control is good. 01/24/24: She returns for follow-up. The noticed small amount of bleeding from the left nostril off and on. She is saying this is just small amount and at time when she is blowing her nose she has noticed that too. She has forced hot air at home during winter time. Blood pressure is well controlled. She has been taking aspirin and Plavix since her CVA. 07/08/2024: She is here for follow-up. No symptoms to report. Continues to get some off and on nosebleeds from left nostril. She is on Plavix for stroke. We stopped the aspirin on last visit but it appears this did not fix the issue. 03/10/2025: Here for follow-up. She is complaining of dyspnea on exertion especially when she is going uphill and with stairs. No chest discomfort. No orthopnea or PND. No peripheral edema. 06/30/2025: She is here for follow-up. In April 2025 she had echocardiography which showed severe LV dysfunction with EF of 15-20%. Severe LA dilatation was noticed. 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 She is waiting to see EP. She has dyspnea with activities. No orthopnea or PND. No peripheral edema. [facility] Medical History Pacemaker (~12/2022) Depression Diabetes mellitus Hyperlipidemia Hypertension Surgical History History of pacemaker History of lumpectomy of right breast History of right breast biopsy History of back surgery History of tubal ligation Social History Household Members: Spouse Housing: House Do you presently have visiting nurse or other home services: No Alcohol intake: never Comment: [facility] Patient Tobacco Use Status: Never used Tobacco e-Cigarette/Vaping Use: Never Used Second Hand Smoke Exposure: No Advance Directives Date on File: 01/26/23 service: No Current occupational status: employed Review of Systems Const Denies chills, Denies fatigue, Denies fever(s), Denies frequent falls, Denies weakness, Denies weight gain and Denies weight loss ENT Denies dizziness Card Denies chest pain, Denies leg edema, Denies lightheadedness, Denies palpitations, Reports dyspnea and Reports dyspnea on exertion Resp Denies cough, Reports dyspnea and Reports dyspnea on exertion GI Denies hematochezia Musc Denies abnormal gait, Denies muscle weakness, Denies numbness, Denies radiating pain into limb and Denies tingling Neuro Denies abnormal gait, Denies dizziness, Denies frequent falls, Denies numbness, Denies tingling and Denies weakness Endo Denies fatigue and Denies palpitations Physical Exam Vital Signs: Last Vital Signs Pulse 74 06/30/25 13:14 BP 110/62 06/30/25 13:14 BMI result Body Mass Index 22.3 GENERAL APPEARANCE: in no acute distress, pleasant. NECK: no carotid bruit, no jugular venous distention. SKIN: no suspicious lesions, warm and dry. HEART: no murmurs, regular rate and rhythm. LUNGS: clear to auscultation bilaterally. ABDOMEN: soft, nontender. EXTREMITIES: no edema. PERIPHERAL PULSES: equal. NEUROLOGIC: No gross deficits, AAO X 3 Assessment & Plan Assessment & Plan (1) Hypertension: Code(s): I10 - Essential (primary) hypertension Category: Medical (2) Cardiomyopathy: Code(s): I42.9 - Cardiomyopathy, unspecified Category: Medical (3) Pacemaker: Onset Date: ~12/2022 Comment: ([facility] DCPP - placed 01/24/23 for complete heart block) Code(s): Z95.0 - Presence of cardiac pacemaker Category: Medical Plan Pleasant 74 year female who is here for follow-up. She has background history of complete heart block status post permanent pacemaker placement. Recently complained of dyspnea and had echocardiography which showed severe LV dysfunction. 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 Blood pressure is low and would not add any Entresto currently. Adding Jardiance 10 mg daily. She will be seeing electrophysiology in July. Thank you for allowing me to participate in the care of your patient. Please feel free to contact me if you have any questions. Medications: New empagliflozin (Jardiance) 10 mg PO DAILY 30 tabs 5RF R06.09 - Other forms of dyspnea Coding Level of Care Code Est Pt Level 4 (40892) Diagnoses Hypertension I10 Cardiomyopathy I42.9 Pacemaker Z95.0
--- OUTSIDE RECORDS SUMMARY | 2025-06-30 14:08 | XMS_ITS | Patient Health Record ---
Author Organization [facility] Address [address] [place] [address] Care Team Providers Care Technician Test Systems Name Role Phone David Henriquez Primary Care Provider Yuni Salazar Unavailable [phone] Allergies Allergen (clinical drug ingredient) Drug/Non Drug [...] X ray : Foot, right 3V 07/10/2020 [id number] TENDON SHEATH/LIGAMENT 1 Insurance Providers Payer Name Payer Address Payer Phone Subscriber Number Group Number Insured Name Patient Relationship to Insured Coverage Start Date Coverage End Date Medicare National Govt Svcs Inc [address] [place] [address] [id number] Nazanin Melendez Self - patient is the insured AARP Secondary to Medicare [address] [place] [address] [id number] Nazanin Melendez Self - patient is the insured Medical (General) History Medical History History ICD Code anxiety back,hip,knee pain cancer cataracts diabetes high blood pressure Meniere's disease Sciatica Surgical History Surgery Date(Month/Year) back 09/1995 Lumpectomy 06/2005 Disc removal 09/1995 Lasik both eyes 06/2013 repeat Lumpectomy 07/2005
--- OUTSIDE RECORDS SUMMARY | 2025-06-30 14:08 | XMS_ITS | Clinical Summary ---
Author Organization [facility] Address [address] [place] [id number] Phone Care Team Providers Care Logistics And Planning Manager Name Role Phone Pcp, Unknown Primary Care [...] file Medical Devices Not on file Insurance [facility] MEDICARE [place]PPLE[place] [id number] [facility] MEDICARE [place] [address] [address] [place] [address] MEDICARE SUPPLEMENT [facility] MEDICARE [place] [address] [place] [address] MEDICARE SUPPLEMENT [facility] MEDICARE SUPPLEMENT [facility] MEDICARE SUPPLEMENT Care Teams Logistics And Planning Manager Relationship Specialty Start Date End Date Pcp, Unknown PCP - General 01/27/22 Additional Source Comments The information contained in this document represents components of the legal health record. It is not the complete legal health record.[facility]
== END 2025-06-30 13:48 | disposition home or self-care (01) ==
LOC: HO.HCS 12:58
PROVIDERS: PCP Internal Medicine; Visit Provider Internal Medicine Cardiovascular Disease
DX: I10 Essential (primary) hypertension (principal); I42.9 Cardiomyopathy, unspecified; Z95.0 Presence of cardiac pacemaker
CPT/HCPCS: 99214

== ENCOUNTER → 2025-06-30 12:57 | Outpatient (BNVA) | payer MEDICARE, SELFPAY | PROVIDERS: PCP Internal Medicine; Visit Provider Internal Medicine Cardiovascular Disease | DX: I10 Essential (primary) hypertension (principal); I42.9 Cardiomyopathy, unspecified; Z95.0 Presence of cardiac pacemaker; R06.09 Other forms of dyspnea | CPT/HCPCS: 99212 ==

== ENCOUNTER → 2025-07-28 23:59 | Outpatient (BNV) | payer MEDICARE, SELFPAY ==
--- NOTE | 2025-08-03 21:13 | MHC.OFFVIS ---
Intake Visit Reasons: Remote device check- [facility] Allergies No Known Allergies Allergy (Verified 03/08/23 15:16) PFSH Medical History Pacemaker (~12/2022) Depression Diabetes mellitus Hyperlipidemia Hypertension Surgical History History of pacemaker History of lumpectomy of right breast History of right breast biopsy History of back surgery History of tubal ligation Social History Household Members: Spouse Housing: House Do you presently have visiting nurse or other home services: No Alcohol intake: never Comment: C Patient Tobacco Use Status: Never used Tobacco e-Cigarette/Vaping Use: Never Used Second Hand Smoke Exposure: No Advance Directives Date on File: 01/26/23 service: No Current occupational status: employed Office Procedures Cardiac Device Check Cardiac Device Check Details: PPM Good battery life 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 [id number] Cardiac Device Interrogation, pacemaker Procedure code (CPT) selection complete Assessment & Plan Assessment & Plan (1) Pacemaker: Onset Date: ~12/2022 Comment: ([facility] DCPP - placed 01/24/23 for complete heart block) Code(s): Z95.0 - Presence of cardiac pacemaker Category: Medical Plan Coding Level of Care Code Procedure Only Diagnoses Pacemaker Z95.0 CPT Codes Cardiac Device Check - Cardiac Device 12: [id number] Cardiac Device Interrogation, pacemaker ([id number])
== END ==
PROVIDERS: PCP Internal Medicine; Visit Provider Internal Medicine Cardiovascular Disease
DX: I44.2 Atrioventricular block, complete (principal); Z95.0 Presence of cardiac pacemaker
CPT/HCPCS: 93294